=== PATIENT | female | born 1960 | race Caucasian/White ===

== ENCOUNTER 2017-11-23 10:01 | Emergency (ER) | payer MEDICAID ==
[~2017-11-23] VITALS: Ht 157.5 cm; Wt 133.8 kg
[2017-11-23] MEDS ORDERED: PROMETHAZINE HCL 25 MG/ML 1ML ONE (10:14)
[2017-11-23] MEDS ORDERED: IOHEXOL 350 MG/ML 100ML IJ ONE (15:02)
[2017-11-23 16:12] VITALS: BP 136/65
== END 2017-11-23 16:08 | disposition home or self-care (01) ==
LOC: ER 10:01
DX: M79.89 Other specified soft tissue disorders (principal); F17.210 Nicotine dependence, cigarettes, uncomplicated; R06.02 Shortness of breath; Z88.1 Allergy status to other antibiotic agents; Z88.8 Allergy status to other drugs, medicaments and biological substances
CPT/HCPCS: 71275; 93971; 99284; J2550; Q9967

== ENCOUNTER 2018-01-22 10:55 | Emergency (ER) | payer MEDICAID ==
[~2018-01-22] VITALS: Ht 157.5 cm; Wt 131.5 kg
[2018-01-22 11:11] VITALS: BP 155/79
== END 2018-01-22 13:27 | disposition home or self-care (01) ==
LOC: ER 10:57
DX: H10.33 Unspecified acute conjunctivitis, bilateral (principal); F17.210 Nicotine dependence, cigarettes, uncomplicated; J44.9 Chronic obstructive pulmonary disease, unspecified; E78.5 Hyperlipidemia, unspecified; I10 Essential (primary) hypertension; Z90.49 Acquired absence of other specified parts of digestive tract; Z87.442 Personal history of urinary calculi

== ENCOUNTER 2019-05-15 22:30 | Emergency (ER) | payer MEDICAID ==
[~2019-05-15] VITALS: Ht 157.5 cm; Wt 158.8 kg
[2019-05-15] MEDS ORDERED: ALBUTEROL SULF 2.5 MG/0.5ML(0.5%) NEB SOLN NEB STA (22:42)
[2019-05-15] MEDS ORDERED: IPRATROPIUM BROM 0.5 MG/2.5ML INH SOL NEB ONE (22:45)
[2019-05-15 23:16] LABS: Basophils # (auto) 0 uL; Basophils % (auto) 0.3 % (0.0-2.0); Eosinophils # (auto) 0.3 uL; Eosinophils % (auto) 2.6 % (0.0-7.0); Hematocrit 30.2 % (36.0-46.0); Hemoglobin 8.6 g/dL (12.2-16.2); Lymphocytes # (auto) 2.2 uL; Lymphocytes % (auto) 20.1 % (10.0-50.0); Mean Corpuscular Hemoglobin 21.3 pg (28.0-32.0); Mean Corpuscular Hgb Conc. 28.5 g/dL (32.0-36.0); Mean Corpuscular Volume 74.5 fL (80.0-100.0); Monocytes # (auto) 0.9 uL; Neutrophils # (auto) 7.6 uL; Nucleated Red Blood Cells % 0.2 %; Platelet Count (auto) 410 10^3/uL (140-450); Red Blood Cells 4.05 10^6/uL (4.0-5.20); Red Cell Distribution Width 19.6 % (11.8-14.3)
[2019-05-15 23:31] LABS: INR < 0.93 (0.9-1.15); Partial Thromboplastin Time 23.2 sec (23.64-32.05)
[2019-05-15 23:37] LABS: Carbon Dioxide 37 mmol/L (21-32); Chloride 94 mmol/L (98-107); Potassium 3.5 mmol/L (3.5-5.1); Sodium 139 mmol/L (136-145)
[2019-05-15 23:38] LABS: Alanine Aminotransferase 29 U/L (13-56); Albumin 3.2 g/dL (3.4-5.0); Anion Gap 8 (5-15); Aspartate Aminotransferase 15 U/L (15-37); Blood Urea Nitrogen 18 mg/dL (7-18); Calcium 8.1 mg/dL (8.5-10.1); GFR African American 68 mL/min; GFR Non-African American 56 mL/min; Glucose 373 mg/dL (74-106)
[2019-05-15 23:42] LABS: Alkaline Phosphatase 86 U/L (45-117); Bilirubin, Total 0.3 mg/dL (0.2-1.0); Total Protein 7.3 g/dL (6.4-8.2)
[2019-05-16 05:23] VITALS: BP 141/83
[2019-05-16 05:55] LABS: Urine Bacteria FEW /hpf (None Seen); Urine Blood Negative /uL (Negative); Urine Budding Yeast OCCASIONAL /hpf (None Seen); Urine Hyaline Cast FEW /lpf (0 - 2); Urine Specific Gravity 1.024 (1.001-1.035); Urine WBC 2 /hpf (0 - 5)
== END 2019-05-16 06:00 | disposition home or self-care (01) ==
LOC: ER 22:30
DX: J96.11 Chronic respiratory failure with hypoxia (principal); J18.9 Pneumonia, unspecified organism; J20.9 Acute bronchitis, unspecified; J44.9 Chronic obstructive pulmonary disease, unspecified; E11.9 Type 2 diabetes mellitus without complications; E78.00 Pure hypercholesterolemia, unspecified; I10 Essential (primary) hypertension; Z87.442 Personal history of urinary calculi
CPT/HCPCS: 36415; 36600; 71045; 80053; 81001; 82805; 83880; 84484; 85025; 85610; 85730; 93005; 94640; 99284; J7611; J7644

== ENCOUNTER 2019-08-25 06:23 | Inpatient (IN) | payer MEDICAID ==
[~2019-08-25] VITALS: Ht 157.5 cm; Wt 152.5 kg
[~2019-08-25 06:23] MED LIST: ALBU108A5 IN; AMIO200T33 PO; CHOL200039 PO; CYAN1TAB14 PO; DULO60CA90 PO; ECON1CRE TOP; FER325T PO; FURO1TAB31 PO; HYD25RS PR; HYDR4CRE35 PR; INSLANTI SC; INSREG3 IV; LAMO200T34 PO; METF-371 PO; MIRT30TA OR; OMEP20TA PO; PANT40T PO; POTA10TA51 PO; ROPI0.5T16 PO; SERDISK IN; SIMV-8 PO; TEMA15CA5 PO
[2019-08-25 07:25] LABS: Basophils # (auto) 0.1 uL; Basophils % (auto) 0.6 % (0.0-2.0); Eosinophils # (auto) 0.2 uL; Hematocrit 28.7 % (36.0-46.0); Hemoglobin 8.2 g/dL (12.2-16.2); Neutrophils # (auto) 16.5 uL
[2019-08-25 07:27] LABS: Eosinophils % (auto) 0.9 % (0.0-7.0); Lymphocytes # (auto) 1.6 uL; Lymphocytes % (auto) 8.2 % (10.0-50.0); Mean Corpuscular Hemoglobin 22.4 pg (28.0-32.0); Mean Corpuscular Hgb Conc. 28.5 g/dL (32.0-36.0); Mean Corpuscular Volume 78.6 fL (80.0-100.0); Monocytes # (auto) 1.5 uL; Monocytes % (auto) 7.4 % (0.0-12.0); Neutrophils % (auto) 82.9 % (37.0-80.0); Nucleated Red Blood Cells % 0.3 %; Platelet Count (auto) 342 10^3/uL (140-450); Red Blood Cells 3.65 10^6/uL (4.0-5.20); White Blood Cell 19.9 10^3/uL (4.4-10.8)
[2019-08-25 07:32] LABS: Red Cell Distribution Width 22.7 % (11.8-14.3)
[2019-08-25 07:39] LABS: Alanine Aminotransferase 36 U/L (13-56); Albumin 3.1 g/dL (3.4-5.0); Anion Gap 7 (5-15); Aspartate Aminotransferase 15 U/L (15-37); Blood Urea Nitrogen 13 mg/dL (7-18); Calcium 8.2 mg/dL (8.5-10.1); Carbon Dioxide 37 mmol/L (21-32); Chloride 92 mmol/L (98-107); GFR African American 73 mL/min; GFR Non-African American 60 mL/min; Glucose 318 mg/dL (74-106); Potassium 4.4 mmol/L (3.5-5.1); Sodium 136 mmol/L (136-145)
[2019-08-25 07:44] LABS: Alkaline Phosphatase 79 U/L (45-117); Bilirubin, Total 0.4 mg/dL (0.2-1.0)
[2019-08-25] MEDS ORDERED: SODIUM CHLORIDE 0.9% 1,000 ML IV ONE (07:53)
[2019-08-25 08:52] LABS: Urine Bacteria NONE SEEN /hpf (None Seen); Urine Blood Negative /uL (Negative); Urine Mucus FEW (None Seen); Urine Specific Gravity 1.025 (1.001-1.035); Urine WBC 55 /hpf (0 - 5)
[2019-08-25] MEDS ORDERED: cefTRIAXone 1GM/50ML D5W 50 ML IV ONE ×2 (10:15→13:15)
[2019-08-25] MEDS ORDERED: SPIRONOLACTONE 25 MG TAB PO ONE (10:15)
[2019-08-25] MEDS ORDERED: FUROSEMIDE 40 MG/4 ML VIAL IV ONE (10:15)
[2019-08-25] MEDS ORDERED: ONDANSETRON HCL 4 MG/2 ML VIAL IV PRN (12:45)
[2019-08-25] MEDS ORDERED: ACETAMINOPHEN 500 MG TAB PO PRN (12:45)
[2019-08-25] MEDS ORDERED: NITROGLYCERIN 0.4 MG SL TAB SL PRN (12:45)
[2019-08-25] MEDS ORDERED: MORPHINE SULF INJ 2 MG/ML SYRINGE 1ML IV PRN (12:45)
[2019-08-25] MEDS ORDERED: AZITHROMYCIN 250 MG TAB PO ONE ×2 (12:45→13:15)
--- NOTE | 2019-08-25 13:10 | NUR ---
Telemetry admit from ER FRANSISCO WILSON admitted to Telemetry unit after SBAR received. Patient oriented to Ketty Aragon, primary RN, unit, room, bed, and unit policies regarding patient care and visiting hours. Patient now on continuous telemetry monitoring, tele box #[id number] and telemetry reading on arrival to unit is . Patient placed on bedside oxygen, weighed by bedscale and encouraged to call if they need something. All questions and concerns addressed, patient verbalized understanding. Note:
[2019-08-25] MEDS: MORPHINE SULF INJ 2 MG/ML SYRINGE 1ML IV PRN (13:15)
[2019-08-25] MEDS ORDERED: DILTIAZEM HCL 120MG ER CAP PO ONE (13:15)
[2019-08-25] MEDS ORDERED: DULoxetine HCL 30 MG CAP PO ONE (13:15)
[2019-08-25] MEDS ORDERED: FERROUS SULFATE 325 MG TAB PO ONE (13:15)
[2019-08-25] MEDS ORDERED: MIRTAZAPINE 30 MG TAB PO ONE (13:15)
[2019-08-25] MEDS ORDERED: PANTOPRAZOLE 40 MG TAB PO ONE (13:15)
[2019-08-25] MEDS ORDERED: AMIODARONE HCL 200 MG TAB PO ONE (13:15)
[2019-08-25] MEDS ORDERED: DEXTROSE (50%) 50ML SYRG IV PRN (13:15)
[2019-08-25] MEDS: lamoTRIgine 100 MG TAB PO SCH (13:35)
[2019-08-25 15:34] VITALS: BP 130/48
[2019-08-25] MEDS: IPRATROPIUM BROM 0.5 MG/2.5ML INH SOL NEB SCH ×3 (15:40→23:03)
[2019-08-25] MEDS: LEVALBUTEROL HCL 1.25 MG/3 ML NEB NEB SCH ×3 (15:40→23:03)
[2019-08-25 17:00] VITALS: BP 143/63
--- NOTE | 2019-08-25 18:00 | NUR ---
MONTEJO BAG REPLACED.
[2019-08-25] MEDS: FUROSEMIDE 20 MG/2 ML VIAL IV SCH (18:07)
[2019-08-25] MEDS: InsuLIN REG 1unit/0.01ml Soln (100units/ml) SC SCH ×3 (18:07→23:41)
[2019-08-25] MEDS: ACCU-CHEK COMFORT CURVE STRIP VI SCH ×3 (18:07→23:41)
[2019-08-25] MEDS: BUDESONIDE (INHALATION) 0.5 MG/2 ML NEB NEB SCH (19:01)
--- NOTE | 2019-08-25 19:24 | NUR ---
Opening Shift Note Assumed care of patient, awake and alert x 4. No S/S of distress/SOB. Patient is on 10l/min Oxymizer at this time. O2 saturation is 92% at this time. Bed is in lowest position and locked. Call light within reach. Board updated. Tele box number matches monitor and leads are in correct placement. Gibbons catheter secured to thigh and collection bag is hanging below bladder. Instructed on POC and to call for assist PRN, will continue to monitor for changes Q1hr and PRN.
[2019-08-25 22:00] VITALS: BP 120/58
[2019-08-25] MEDS: TEMAZEPAM 15 MG CAP PO SCH (22:00)
--- NOTE | 2019-08-25 22:35 | NUR ---
RT NOTE: PAGED TO PT ROOM, FOUND PT WITH BIPAP MASK RIPPED OFF AND PT AGITATED AND CONFUSED. PT NOT WANTING TO WEAR BIPAP OR OXYGEN. PT CALMED DOWN AND LET ME GIVE BREATHING TX AND PLACE BACK ON 10LPM OXYMIZER, SPO2 92%. PT STILL CONFUSED AND RN NOTIFIED.
--- NOTE | 2019-08-25 23:01 | NUR ---
Patient found to be extremely agitated and combative. Patient had her purse next to her but denied that she had taken any drugs or medications. No pills noticed in her purse at glance. Her BiPAP was laying on the bed and her O2 sat was 76%. Attempted to place BiPAP back on but patient began screaming that I was trying to kill her. RT paged. Charge Nurse paged. Multiple nurses required to place Oxymizer on patient at 10 l/min. O2 sat christ to 86%. Patient was rambling that I was trying to kill her and that the "cartel" had sent me to kill her. I left her eyesight and stayed outside of door while RT and charge nurse attempted to calm patient down. RT gave breathing treatment and patient calmed down slightly but is still paranoid.
[2019-08-25] MEDS: AMIODARONE HCL 200 MG TAB PO SCH (23:33)
[2019-08-25] MEDS: PANTOPRAZOLE 40 MG TAB PO SCH (23:33)
[2019-08-25] MEDS: FERROUS SULFATE 325 MG TAB PO SCH (23:33)
[2019-08-25] MEDS: ROPINIROLE HYDROCHLORIDE 3 MG PO SCH (23:33)
--- NOTE | 2019-08-25 23:54 | NUR ---
Care endorsed to MAYANK Harvey. Patient is resting in bed and appears to be more calm at this time. Patient's oxygen is 94% on 10 l/min Oxymizer.
--- NOTE | 2019-08-26 | NUR ---
Assumed care of patient. No S/S of distress/SOB 02 94%, patient denies pain. Discussed plan of care with patient, patient verbalized understanding. Instructed patient to call for assist PRN, will continue to monitor for changes Q1hr and PRN.
[2019-08-26] MEDS: TEMAZEPAM 15 MG CAP PO SCH (00:43)
[2019-08-26] MEDS ORDERED: LORazepam 2MG/ML-1ML VIAL IV PRN (03:45)
[2019-08-26] MEDS: ACCU-CHEK COMFORT CURVE STRIP VI SCH ×5 (04:45→23:17)
[2019-08-26] MEDS: InsuLIN REG 1unit/0.01ml Soln (100units/ml) SC SCH ×5 (04:50→23:17)
[2019-08-26 06:00] VITALS: BP 128/85
[2019-08-26] MEDS: FUROSEMIDE 20 MG/2 ML VIAL IV SCH (06:00)
[2019-08-26] MEDS: ROPINIROLE HYDROCHLORIDE 3 MG PO SCH ×2 (06:00→13:43)
[2019-08-26 06:37] LABS: Basophils # (auto) 0 uL; Eosinophils # (auto) 0.1 uL; Hemoglobin 7.5 g/dL (12.2-16.2)
[2019-08-26 06:40] LABS: Basophils % (auto) 0.2 % (0.0-2.0); Eosinophils % (auto) 0.7 % (0.0-7.0); Hematocrit 25.6 % (36.0-46.0); Lymphocytes # (auto) 1.9 uL; Lymphocytes % (auto) 11.7 % (10.0-50.0); Mean Corpuscular Hemoglobin 22.6 pg (28.0-32.0); Mean Corpuscular Hgb Conc. 29.2 g/dL (32.0-36.0); Mean Corpuscular Volume 77.3 fL (80.0-100.0); Monocytes # (auto) 1.6 uL; Monocytes % (auto) 9.8 % (0.0-12.0); Neutrophils # (auto) 12.3 uL; Neutrophils % (auto) 77.6 % (37.0-80.0); Nucleated Red Blood Cells % 0.7 %; Platelet Count (auto) 330 10^3/uL (140-450); Red Blood Cells 3.31 10^6/uL (4.0-5.20); White Blood Cell 15.8 10^3/uL (4.4-10.8)
[2019-08-26 06:49] LABS: Red Cell Distribution Width 22.4 % (11.8-14.3)
[2019-08-26 06:57] LABS: Calcium 8.6 mg/dL (8.5-10.1); Potassium 4.7 mmol/L (3.5-5.1)
[2019-08-26 06:59] LABS: BUN/Creatinine Ratio 14.3
--- NOTE | 2019-08-26 07:00 | NUR ---
Opening Shift Note Assumed care of patient, awake and alert. No S/S of distress/SOB or pain. Instructed on POC and to call for assist PRN, will continue to monitor for changes Q1hr and PRN.
--- NOTE | 2019-08-26 07:19 | NUR ---
Ev from chemistry called with critical CO2 43%. Hospitalist paged. Endorsed care to daytime RN Ketty.
[2019-08-26] MEDS: IPRATROPIUM BROM 0.5 MG/2.5ML INH SOL NEB SCH ×5 (07:49→22:03)
[2019-08-26] MEDS: LEVALBUTEROL HCL 1.25 MG/3 ML NEB NEB SCH ×2 (07:49→10:42)
[2019-08-26] MEDS: BUDESONIDE (INHALATION) 0.5 MG/2 ML NEB NEB SCH ×2 (07:49→18:25)
[2019-08-26] MEDS: cefTRIAXone 1GM/50ML D5W 50 ML IV SCH (08:32)
[2019-08-26] MEDS: MORPHINE SULF INJ 2 MG/ML SYRINGE 1ML IV PRN ×2 (08:34→18:02)
[2019-08-26] MEDS: lamoTRIgine 100 MG TAB PO SCH (09:40)
[2019-08-26] MEDS: MIRTAZAPINE 30 MG TAB PO SCH (09:41)
[2019-08-26] MEDS: PANTOPRAZOLE 40 MG TAB PO SCH ×2 (09:41→22:44)
[2019-08-26] MEDS: DULoxetine HCL 30 MG CAP PO SCH ×2 (09:41→22:44)
[2019-08-26] MEDS: HYDROcodone-ACET 5/325MG TAB PO PRN ×2 (09:41→16:16)
[2019-08-26] MEDS: FERROUS SULFATE 325 MG TAB PO SCH ×2 (09:41→22:44)
[2019-08-26] MEDS: AMIODARONE HCL 200 MG TAB PO SCH ×2 (09:42→22:45)
[2019-08-26] MEDS ORDERED: DILTIAZEM HCL 120MG ER CAP PO SCH (10:00)
[2019-08-26] MEDS ORDERED: AZITHROMYCIN 250 MG TAB PO SCH (10:00)
--- NOTE | 2019-08-26 10:50 | NUR ---
PAGED RT PATIENT SATURATION AT 89% TO 90 % ON 6 L OXYMIZER
[2019-08-26 11:31] VITALS: BP 138/99
--- NOTE | 2019-08-26 11:34 | NUR ---
PATIENT SATURATION AT 92 AFTER BREATHING TREATMENT
[2019-08-26 13:00] VITALS: BP 136/84
--- NOTE | 2019-08-26 13:26 | NUR ---
DISCUSSION ABOUT INTUBATION DR. BAUER AT BEDSIDE WITH PATIENT AND PATIENTS SON CONCHA AT BEDSIDE. AFTER DR. BAUER TALKED TO PATIENT ABOUT HER CURRENT CONDITION. PATIENT STATED THAT SHE WANTS TO BE INTUBATED IF NEEDED BUT FOR NO LONGER THAN A WEEK AND THAT HER WISHES ARE NOT TO HAVE A TRACHEOSTOMY
[2019-08-26] MEDS ORDERED: DILTIAZEM HCL 25 MG/5 ML VIAL IV ONE (14:00)
[2019-08-26] MEDS ORDERED: DEXTROSE (50%) 50ML SYRG IV PRN (14:00)
[2019-08-26] MEDS: ROPINIROLE 3 MG PO SCH ×2 (14:00→22:51)
[2019-08-26 16:34] VITALS: BP 132/80
--- NOTE | 2019-08-26 18:05 | NUR ---
G CRITICAL CALLED AND SPOKE WITH DANIELLE BASS ORDERS RECEIVED AND READ BACK AND VERIFIED.
[2019-08-26] MEDS ORDERED: ACETAMINOPHEN 500 MG TAB PO PRN (18:15)
--- NOTE | 2019-08-26 19:25 | NUR ---
OPENING NOTE- NOC SHIFT PATIENT IS ALERT AND ORIENTED X4. PATIENT IS WEARING BIPAP SAT O2 IS 89% AT THIS TIME. SON AT BEDSIDE. NURSE DIRECTOR BIOSTATISTICS AT BEDSIDE FOR SAFETY PRECAUTIONS. DISCUSSED POC WITH PATIENT AND INSTRUCTED PATIENT TO CALL PRN.
[2019-08-26 20:00] VITALS: BP 132/80
[2019-08-26] MEDS: acetaZOLAMIDE SODIUM 500 MG VL IV SCH (22:46)
[2019-08-27] VITALS (10 sets, daily range): BP systolic 111–138; BP diastolic 46–73
--- NOTE | 2019-08-27 00:36 | NUR ---
GRACIELA PAGEDuarte HOSPITALIST PATIENT PRESENTING WITH A FLUTTER. PER REPORT PATIENT HAD AN EPISODE AT AROUND 1330 ON 08/26; CARDIZEM 40MG IV WAS ORDERED FOR HER BUT NOT GIVEN BECAUSE SHE CONVERT BACK TO SR. SHE HAD A SCHEDULED CARDIZEM ER 120MG CAPSULE AT 0943 08/26. HR 120-135. PATIENT IS ON BIPAP.
--- NOTE | 2019-08-27 00:41 | NUR ---
12 LEAD EKG COMPLETE PRESENTING WITH AFLUTTER
[2019-08-27] MEDS ORDERED: PATIENTS OWN MEDICATION PO SCH ×2 (00:45→10:00)
--- NOTE | 2019-08-27 00:45 | NUR ---
DR COLBERT AT BEDSIDE; DR COLBERT AWARE OF PATIENT CURRENTLY PRESENTING WITH AFLUTTER AND ELEVATED HR 132. WILL CARRY OUT ORDERS RECEIVED.
--- NOTE | 2019-08-27 00:55 | NUR ---
DR COLBERT AWARE OF LATEST 12 LEAD EKG RESULTS.
[2019-08-27] MEDS ORDERED: RIVAROXABAN 20 MG TAB PO ONE (01:15)
[2019-08-27] MEDS: ACETAMINOPHEN 500 MG TAB PO PRN (01:32)
[2019-08-27] MEDS: ROPINIROLE 3 MG PO SCH ×3 (06:02→22:13)
[2019-08-27] MEDS: InsuLIN REG 1unit/0.01ml Soln (100units/ml) SC SCH ×4 (06:09→22:10)
[2019-08-27] MEDS: ACCU-CHEK COMFORT CURVE STRIP VI SCH ×4 (06:09→22:10)
[2019-08-27] MEDS: BUDESONIDE (INHALATION) 0.5 MG/2 ML NEB NEB SCH ×2 (06:10→19:08)
[2019-08-27] MEDS: IPRATROPIUM BROM 0.5 MG/2.5ML INH SOL NEB SCH ×5 (06:10→21:56)
--- NOTE | 2019-08-27 07:40 | NUR ---
ENDORSED PATIENT CARE TO DAY SHIFT NURSE KANA TALLEY. NURSE WIND OPERATIONS SUPERVISOR AT BEDSIDE FOR SAFETY PRECAUTIONS. PATIENT ON BIPAP, RT AT BEDSIDE AT THIS TIME. NO S/SX OF DISTRESS OR PAIN.
[2019-08-27] MEDS: cefTRIAXone 1GM/50ML D5W 50 ML IV SCH (09:14)
[2019-08-27 09:42] LABS: Hemoglobin 7.9 g/dL (12.2-16.2); Lymphocytes # (auto) 1.6 uL; Mean Corpuscular Hemoglobin 22.3 pg (28.0-32.0); Monocytes # (auto) 1.3 uL; Red Blood Cells 3.56 10^6/uL (4.0-5.20)
[2019-08-27 09:43] LABS: Basophils # (auto) 0 uL; Basophils % (auto) 0.4 % (0.0-2.0); Eosinophils # (auto) 0.3 uL; Hematocrit 27.3 % (36.0-46.0); Mean Corpuscular Volume 76.7 fL (80.0-100.0); Monocytes % (auto) 9.5 % (0.0-12.0); Neutrophils # (auto) 10.4 uL; Neutrophils % (auto) 76.1 % (37.0-80.0); Nucleated Red Blood Cells % 0.7 %; Platelet Count (auto) 363 10^3/uL (140-450); White Blood Cell 13.7 10^3/uL (4.4-10.8)
[2019-08-27 09:56] LABS: Red Cell Distribution Width 23.6 % (11.8-14.3)
[2019-08-27 10:00] LABS: BUN/Creatinine Ratio 16.9; Calcium 8.7 mg/dL (8.5-10.1); Potassium 3.8 mmol/L (3.5-5.1)
[2019-08-27] MEDS: AMIODARONE HCL 200 MG TAB PO SCH ×2 (10:13→22:09)
[2019-08-27] MEDS: MIRTAZAPINE 30 MG TAB PO SCH (10:14)
[2019-08-27] MEDS: lamoTRIgine 100 MG TAB PO SCH (10:14)
[2019-08-27] MEDS: DULoxetine HCL 30 MG CAP PO SCH ×2 (10:14→22:10)
[2019-08-27] MEDS: FERROUS SULFATE 325 MG TAB PO SCH ×2 (10:14→22:09)
[2019-08-27] MEDS: PANTOPRAZOLE 40 MG TAB PO SCH ×2 (10:14→22:10)
[2019-08-27] MEDS: DILTIAZEM HCL 120MG ER CAP PO SCH (10:16)
--- NOTE | 2019-08-27 10:26 | NUR ---
PER PHARMACY DIAMOX ON ORDER. TO BE DELIVERED UPON ARRIVAL.
[2019-08-27] MEDS: methylPREDNISolone SOD SUCC 40 MG/ML VL IV SCH ×3 (10:41→22:11)
--- NOTE | 2019-08-27 10:50 | NUR ---
PT TRANSFERRED TO [facility]. PT TOLERATED TRANSPORT WELL. REPORT GIVEN TO MAYANK PONCE. ALL QUESTIONS AND CONCERNS ADDRESSED.
--- NOTE | 2019-08-27 11:00 | NUR ---
RT Transport Note: Patient transported to [facility] with MAYANK Cleary and Phuc Bravo. Patient transported on simple mask connected to O2 tank. After arrival in [facility], placed pt back on BIPAP on previously ordered settings, alarms set and audible to nurse's station. Pt tolerating BIPAP well, HR 89, RR 28, SPO2 95%. MAYANK Gonzalez at bedside. Transport completed without incident.
--- NOTE | 2019-08-27 11:00 | NUR ---
TELE PT TRANSFER TO [facility] Report received from leslie Jacob. FRANSISCO WILSON transferred to [facility] via rcollege corner on quality assurance monitor chassis and portable 02. All patient medications and personal belongings transferred. with patient. Patient son and daughter at bedside. Patient connected to bedside monitor and Bipap machine. Oxygen saturation 93%, denies shortness of breath or chest pain. Physical assessment complete. Bed locked in lowest position, call light within reach. Patient instructed to call for assistance, patient verbalized understanding.
--- NOTE | 2019-08-27 11:10 | NUR ---
CODE STATUS at bedside speaking with patient regarding code status.
[2019-08-27] MEDS: LEVALBUTEROL HCL 1.25 MG/3 ML NEB NEB SCH ×4 (11:19→21:56)
--- NOTE | 2019-08-27 11:21 | NUR ---
MD UPDATE called to confirm patient location. MD ordered stat ABG, to be notified with results. RT notified.
[2019-08-27] MEDS: acetaZOLAMIDE SODIUM 500 MG VL IV SCH ×2 (11:33→22:11)
--- NOTE | 2019-08-27 11:37 | NUR ---
PT REMAINS ON BIPAP. ABG DRAWN PER DR AU'S ORDERS. RESULTS TO FOLLOW
--- NOTE | 2019-08-27 11:40 | NUR ---
CALLED DR AU TO REPORT ABG RESULTS, LEFT MESSAGE, AWAITING CALL BACK
--- NOTE | 2019-08-27 11:45 | NUR ---
ABG RT Ivone called and notified him of ABG results. Orders obtained to place patient on High Flow oxygen.
--- NOTE | 2019-08-27 11:55 | NUR ---
DR AU CALLED BACK, REPORTED ABG RESULTS TO . NEW ORDERS RECEIVED TO PLACE PT ON HIGH FLOW. ABG ONE HOUR AFTER INITIATING. WILL CARRY OUT
--- NOTE | 2019-08-27 13:05 | NUR ---
TOOK PT OFF BIPAP AND PLACED ON HIGH FLOW NASAL CANNULA PER DR AU'S ORDERS. HFNC UNIT PLUGGED INTO RED OUTLET AND PROPER O2/AIR SOURCES, PT FITTED WITH SIZE MEDIUM CANNULA. HEATER SET TO 34C. BREATH SOUNDS DIMINISHED THROUGHOUT. PT TOLERATING WELL, SPO2 MAINTAINING AT 92%. PT LAYING COMFORTABLY IN BED, AWAKE, ALERT, FOLLOWING COMMANDS AND ANSWERING QUESTIONS, VISITING WITH FAMILY MEMBERS AT BEDSIDE. ABG TO FOLLOW IN ONE HOUR. NOTIFIED MAYANK PONCE OF CHANGES.
--- NOTE | 2019-08-27 13:12 | NUR ---
OXYGENATION Patient placed on high flow nasal cannula by RT per request. Patient tolerated well at this time. Oxygen saturation 93%. Will continue to monitor. RT to draw ABG in 1 hour.
[2019-08-27] MEDS ORDERED: methylPREDNISolone SOD SUCC 40 MG/ML VL IV SCH (14:00)
--- NOTE | 2019-08-27 14:30 | NUR ---
PT REMAINS ON HIGH FLOW NC, TOLERATING WELL. ABG DRAWN, RESULTS TO FOLLOW
--- NOTE | 2019-08-27 14:40 | NUR ---
CALLED DR AU WITH ABG RESULTS. ACKNOWLEDGED RESULTS, NO NEW ORDERS RECEIVED. PT TO REMAIN ON HIGH FLOW. NOTIFIED MAYANK PONCE
[2019-08-27] MEDS: RIVAROXABAN 20 MG TAB PO SCH (18:01)
--- NOTE | 2019-08-27 19:16 | NUR ---
REPORT Report given to Heather TALLEY, care endorsed.
--- NOTE | 2019-08-27 20:00 | NUR ---
OPENING SHIFT NOTE PATIENT AWAKE ALERT AND ORIENTED, RESTING IN BED ON HIGH FLOW NC 55L 50%FIO2. NO SIGNS OF DISTRESS OR SOB NOTED, ALL VSS: SEE IV SPREADSHEET. COMPLETE PHYSICAL ASSESSMENT DONE: SEE INTERVENTIONS. INSTRUCTED ON POC AND TO CALL FOR ASSIST PRN, PATIENT VERBALIZES UNDERSTANDING.
--- NOTE | 2019-08-27 20:15 | NUR ---
AT BEDSIDE UPDATED ON PATIENT STATUS AND NEW VERBAL ORDERS READ BACK AND VERIFIED, WILL FOLLOW THROUGH
[2019-08-27] MEDS: TEMAZEPAM 15 MG CAP PO SCH (22:10)
[2019-08-28] VITALS (13 sets, daily range): BP systolic 118–151; BP diastolic 48–75
[2019-08-28] MEDS: LEVALBUTEROL HCL 1.25 MG/3 ML NEB NEB SCH ×6 (02:23→22:27)
[2019-08-28] MEDS: IPRATROPIUM BROM 0.5 MG/2.5ML INH SOL NEB SCH ×6 (02:24→22:26)
[2019-08-28] MEDS: methylPREDNISolone SOD SUCC 40 MG/ML VL IV SCH ×4 (03:45→22:04)
--- NOTE | 2019-08-28 05:19 | NUR ---
AM BATH/LINEN CHANGE COMPLETE BED BATH PROVIDED USING WARM WASH CLOTHS. SKIN REASSESSED AT THIS TIME FOR ANY CHANGES: NO NEW CHANGES NOTED, SKIN CONTINUES TO BE INTACT. MONTEJO CARE PROVIDED . PILLOW CASES PLACED UNDER ABD AND BREAST FOLD TO KEEP AREA DRY. PARTIAL LINEN CHANGE DONE AND NEW GOWN PLACED ON PATIENT. REPOSITIONED IN BED FOR COMFORT. CALL LIGHT GIVEN TO PATIENT AND CONTINUE MONITORING.
[2019-08-28] MEDS: BUDESONIDE (INHALATION) 0.5 MG/2 ML NEB NEB SCH ×2 (06:28→19:17)
[2019-08-28] MEDS: ROPINIROLE 3 MG PO SCH ×3 (06:38→22:04)
[2019-08-28] MEDS: ACCU-CHEK COMFORT CURVE STRIP VI SCH ×4 (06:38→23:31)
[2019-08-28] MEDS: InsuLIN REG 1unit/0.01ml Soln (100units/ml) SC SCH ×4 (06:44→23:31)
--- NOTE | 2019-08-28 06:58 | NUR ---
END OF SHIFT NOTE PATIENT IS AWAKE AND ALERT, ON BIPAP, SPO2 100%, RR 25. PATIENT REMAINED STABLE THROUGHOUT THE NIGHT WITH NO MAJOR EVENTS. WILL CONTINUE MONITORING AND ENDORSE CARE TO DAY SHIFT RN.
--- NOTE | 2019-08-28 07:30 | NUR ---
RECEIVED PATIENT SITTING UP IN THE BED, A/O TIMES ,4, O2 BY THE BIPAP 20/5 40%, MONTEJO TO GRAVITY, SALINE LOCK TO THE LEFT CHEST 22G FLUSHED AND PATENT DENIES PAIN
--- NOTE | 2019-08-28 08:30 | NUR ---
PLACED ON THE HIGH FLOW 55L AND 50% SO THE PATIENT CAN EAT HER BREAKFAST
[2019-08-28] MEDS: cefTRIAXone 1GM/50ML D5W 50 ML IV SCH (08:40)
--- NOTE | 2019-08-28 09:11 | NUR ---
SITTING UP IN THE BED TALKING TO HER SON
--- NOTE | 2019-08-28 09:45 | NUR ---
DR BAUER IN TO SEE THE PATIENT AND ORDERED LABS FOR TODAY
[2019-08-28] MEDS: acetaZOLAMIDE SODIUM 500 MG VL IV SCH ×2 (09:54→22:04)
[2019-08-28] MEDS: FERROUS SULFATE 325 MG TAB PO SCH ×2 (09:55→22:04)
--- NOTE | 2019-08-28 09:55 | NUR ---
EXPLAIN MEDIATIONS TO THE PATIENT REGARDING THE DOSAGE, USAGE AND THE SIDE EFFECTS, VERBALIZED SHE UNDERSTOOD AND MEDS GIVEN ORDERED
[2019-08-28] MEDS: PANTOPRAZOLE 40 MG TAB PO SCH ×2 (09:56→22:05)
[2019-08-28] MEDS: AMIODARONE HCL 200 MG TAB PO SCH ×2 (09:56→22:05)
[2019-08-28] MEDS: DILTIAZEM HCL 120MG ER CAP PO SCH (09:57)
[2019-08-28] MEDS: DULoxetine HCL 30 MG CAP PO SCH ×2 (10:06→22:05)
[2019-08-28] MEDS: MIRTAZAPINE 30 MG TAB PO SCH (10:07)
[2019-08-28] MEDS: lamoTRIgine 100 MG TAB PO SCH (10:08)
[2019-08-28 10:34] LABS: Basophils # (auto) 0 uL; Eosinophils # (auto) 0 uL
[2019-08-28 10:36] LABS: Basophils % (auto) 0.4 % (0.0-2.0); Hematocrit 27.7 % (36.0-46.0); Hemoglobin 7.9 g/dL (12.2-16.2); Lymphocytes # (auto) 0.8 uL; Lymphocytes % (auto) 6.4 % (10.0-50.0); Mean Corpuscular Hemoglobin 22.5 pg (28.0-32.0); Mean Corpuscular Hgb Conc. 28.5 g/dL (32.0-36.0); Mean Corpuscular Volume 78.8 fL (80.0-100.0); Monocytes # (auto) 0.3 uL; Monocytes % (auto) 2.6 % (0.0-12.0); Neutrophils % (auto) 90.6 % (37.0-80.0); Nucleated Red Blood Cells % 0.6 %; Platelet Count (auto) 408 10^3/uL (140-450); Red Blood Cells 3.52 10^6/uL (4.0-5.20); White Blood Cell 12.2 10^3/uL (4.4-10.8)
[2019-08-28 10:37] LABS: Red Cell Distribution Width 24.5 % (11.8-14.3)
[2019-08-28 10:41] LABS: BUN/Creatinine Ratio 19.4; Calcium 8.9 mg/dL (8.5-10.1); Potassium 3.5 mmol/L (3.5-5.1)
--- NOTE | 2019-08-28 11:00 | NUR ---
WATCHING TV WITH HER SON AT THE BEDSIDE
[2019-08-28] MEDS ORDERED: DEXTROSE (50%) 50ML SYRG IV PRN (11:15)
[2019-08-28] MEDS ORDERED: INSULIN LANTUS (GLARGINE) 1 /0.01ml (100units/ml) SC ONE (11:15)
--- NOTE | 2019-08-28 11:46 | NUR ---
Nutrition Assessment Notes Please refer to link for full assessment notes Est energy needs: [id number] kcals (12-15 kcals/kgBW) Est protein needs: 61-76 gms/day (0.8-1.0 gms/kgAdjBW) Will continue to monitor and reassess prn Addendum: 08/28/19 at [address] Amended: Links added.
--- NOTE | 2019-08-28 12:00 | NUR ---
CHANGE THE O2 TO HIGH FLOW AT 40L AND 40%
--- NOTE | 2019-08-28 12:30 | NUR ---
SITTING UP IN THE BED EATING HER LUNCH NO HELP NEEDED, FAMILY WITH THE PATIENT
--- NOTE | 2019-08-28 13:30 | NUR ---
NO COMPLAINTS FAMILY WITH THE PATIENT
--- NOTE | 2019-08-28 14:56 | NUR ---
NO CHANGE IN CONDITION, O2 STILL BY THE HIGH FLOW
--- NOTE | 2019-08-28 15:43 | NUR ---
FAMILY LEFT AND WENT HOME, PATIENT SITTING UP IN BED WITH EYES CLOSED
--- NOTE | 2019-08-28 16:02 | NUR ---
EYES CLOSED APPEARS TO BE SLEEPING
--- NOTE | 2019-08-28 16:50 | NUR ---
SPUTUM COLLECTED AND SENT TO THE LAB
--- NOTE | 2019-08-28 17:04 | NUR ---
SITTING UP IN BED WITH EYES CLOSED BUT OPENS WHEN YOU CALL HER NAME
--- NOTE | 2019-08-28 17:27 | NUR ---
DR AU IN TO SEE THE PATIENT
[2019-08-28] MEDS: RIVAROXABAN 20 MG TAB PO SCH (17:44)
--- NOTE | 2019-08-28 18:17 | NUR ---
SITTING UP IN THE BED TALKING ON TH PHONE, O2 BY THE HIGH FLOW AT 40L AND 40%, A/O TIMES 4, MONTEJO TO GRAVITY, DENIES PAIN, SALINE LOCK TO THE LEFT BREAST FLUSHED AND PATENT, NO COMPLAINTS OF PAIN, WILL CONTINUE TO MONITOR AND GIVE REPORT TO THE NEXT SHIFT
--- NOTE | 2019-08-28 19:10 | NUR ---
OPENING SHIFT RECEIVED REPORT FROM DAY SHIFT RN. ASSUMED CARE OF PATIENT. PATIENT IN BED WITH NON SIGNS OR SYMPTOMS OF SOB, PAIN OR DISTRESS. CURRENTLY ON HIGH FLOW 40L 40%FI02, 02 SAT - 95%. LEFT CHEST IV - CLEAN/DRY/INTACT. MONTEJO HUNG TO GRAVITY ON BED RAIL. UPDATED PATIENT ON PLAN OF CARE. REPOSITIONED FOR COMFORT. BED IN LOWEST POSITION, SIDE RAILS X2, CALL LIGHT WITHIN REACH. WILL CONTINUE TO MONITOR.
--- NOTE | 2019-08-28 19:24 | NUR ---
RT NOTE PT WAS SEEN BY RT FOR HF CHECK AND HHN TX. PT TOLERATES HHN WELL VIA MASK. WATER LEVEL IS ADEQUATE. NO ADVERSE REACTION NOTED. PT STATES SHE WOULD LIKE TO GO ON BIPAP [employer] AT 2230. PT AWARE SHE CAN HAVE RT CALLED IF SHE WANTS TO GO ON SOONER. CONT ORDERED POX 95% Addendum: 08/28/19 at 1924 by Kasey Byrd RT Amended: Links added.
[2019-08-28] MEDS: TEMAZEPAM 15 MG CAP PO SCH (22:05)
--- NOTE | 2019-08-28 22:25 | NUR ---
RT NOTE PT PLACED ON RENTAL BIPAP ON STATED SETTINGS WITH MEDIUM MASK. BIPAP IS PLUGGED TO RED OUTLET. ALARMS ARE ON AND AUDIBLE TO NURSING. LEAK TEST DONE AND PASSED. MASK ADJUSTED FOR PT COMFORT. BILATERAL BS ARE CLEAR/DIM. HHN GIVEN INLINE WITH 0.63 MG XOPENEX AND 0.5 MG ATROVENT WITHOUT ADVERSE REACTION NOTED. SKIN IS INTACT AND WITHOUT BREAKDOWN/REDNESS NOTED. PT APPEARS COMFORTABLE AND SEEMS TO TOLERATE WELL AT THIS TIME. CONT ORDERED. POX 97% Addendum: 08/28/19 at 2233 by Kasey Byrd RT Amended: Links added.
[2019-08-29] VITALS (13 sets, daily range): BP systolic 104–136; BP diastolic 48–76
--- NOTE | 2019-08-29 00:51 | NUR ---
RT NOTE ROUTINE BIPAP CHECK DONE. PT IS ON RENTAL BIPAP ON STATED SETTINGS WITH MEDIUM MASK. BIPAP IS PLUGGED TO RED OUTLET. ALARMS ARE ON AND AUDIBLE TO NURSING. PT IS SLEEPING AND APPEARS COMFORTABLE AND SEEMS TO TOLERATE WELL AT THIS TIME. CONT ORDERED. POX 96% Addendum: 08/29/19 at 0115 by Kasey Byrd RT Amended: Links added.
[2019-08-29] MEDS: LEVALBUTEROL HCL 1.25 MG/3 ML NEB NEB SCH ×6 (02:10→22:46)
[2019-08-29] MEDS: IPRATROPIUM BROM 0.5 MG/2.5ML INH SOL NEB SCH ×6 (02:10→22:46)
--- NOTE | 2019-08-29 02:12 | NUR ---
RT NOTE ROUTINE BIPAP CHECK DONE. PT IS ON RENTAL BIPAP ON STATED SETTINGS WITH MEDIUM MASK. BIPAP IS PLUGGED TO RED OUTLET. ALARMS ARE ON AND AUDIBLE TO NURSING. PT IS SLEEPING AND APPEARS COMFORTABLE AND SEEMS TO TOLERATE WELL AT THIS TIME. HHN GIVEN INLINE WITH 0.63 MG XOPENEX AND 0.5 MG ATROVENT WITHOUT ADVERSE REACTION NOTED. CONT ORDERED. POX 97% Addendum: 08/29/19 at 0220 by Kasey Byrd RT Amended: Links added.
--- NOTE | 2019-08-29 04:06 | NUR ---
RT NOTE ROUTINE BIPAP CHECK DONE. PT IS ON RENTAL BIPAP ON STATED SETTINGS WITH MEDIUM MASK. BIPAP IS PLUGGED TO RED OUTLET. ALARMS ARE ON AND AUDIBLE TO NURSING. PT IS SLEEPING AND APPEARS COMFORTABLE AND SEEMS TO TOLERATE WELL AT THIS TIME.MASK ADJUSTED FOR PT COMFORT AND LESS LEAK/BETTER VOLUME. CONT ORDERED. POX 96% Addendum: 08/29/19 at 0412 by Kasey Byrd RT Amended: Links added.
--- NOTE | 2019-08-29 05:30 | NUR ---
MORNING CARE PERFORMED MORNING CARE WITH CHG WIPES AND WASH CLOTHS TO THE FACE. PARTIAL LINEN CHANGE AND GOWN CHANGED. REPOSITIONED FOR COMFORT. SKIN REASSESSED AT THIS TIME. BED IN LOWEST POSITION, SIDE RAILS UP X2, CALL LIGHT WITHIN REACH. WILL CONTINUE TO MONITOR.
[2019-08-29] MEDS: methylPREDNISolone SOD SUCC 40 MG/ML VL IV SCH ×2 (06:06→14:39)
[2019-08-29] MEDS: InsuLIN REG 1unit/0.01ml Soln (100units/ml) SC SCH ×4 (06:07→21:27)
[2019-08-29] MEDS: ACCU-CHEK COMFORT CURVE STRIP VI SCH ×4 (06:07→21:27)
[2019-08-29] MEDS: ROPINIROLE 3 MG PO SCH ×3 (06:07→21:25)
[2019-08-29] MEDS: ACETAMINOPHEN 500 MG TAB PO PRN ×2 (06:08→18:39)
--- NOTE | 2019-08-29 07:10 | NUR ---
END OF SHIFT REPORT GIVEN TO DAY SHIFT RN. CARE ENDORSED.
[2019-08-29] MEDS: BUDESONIDE (INHALATION) 0.5 MG/2 ML NEB NEB SCH ×3 (07:15→22:46)
--- NOTE | 2019-08-29 07:30 | NUR ---
RECEIVED PATIENT SITTING UP IN THE BED, A/O TIMES 4, O2 BY THE BI PAP AND WILL BE CHANGED TO HIGH FLOW, MONTEJO TO GRAVITY, SALINE LOCK TO THE LEFT BREAST FLUSHED AND PATENT, DENIES PAIN
--- NOTE | 2019-08-29 08:20 | NUR ---
PLACED 20G SALINE LOCK TO THE RFA USING STERILE TECHNIQUE AND 1/1 ATTEMPTS
--- NOTE | 2019-08-29 08:35 | NUR ---
SAT UP IN BED AND ATE BREAKFAST NO HELP NEEDED
--- NOTE | 2019-08-29 09:28 | NUR ---
SITTING UP IN THE BED WATCHING TV
[2019-08-29] MEDS: cefTRIAXone 1GM/50ML D5W 50 ML IV SCH (10:21)
[2019-08-29] MEDS: acetaZOLAMIDE SODIUM 500 MG VL IV SCH (10:22)
[2019-08-29] MEDS: FERROUS SULFATE 325 MG TAB PO SCH ×2 (10:26→21:23)
--- NOTE | 2019-08-29 10:26 | NUR ---
discussed medications with the patient regarding the dosage, usage and the side effects,verbalized she understood and meds given as ordered
[2019-08-29] MEDS: DULoxetine HCL 30 MG CAP PO SCH ×2 (10:27→21:25)
[2019-08-29] MEDS: AMIODARONE HCL 200 MG TAB PO SCH ×2 (10:27→21:24)
[2019-08-29] MEDS: lamoTRIgine 100 MG TAB PO SCH (10:27)
[2019-08-29] MEDS: PANTOPRAZOLE 40 MG TAB PO SCH ×2 (10:28→21:24)
[2019-08-29] MEDS: MIRTAZAPINE 30 MG TAB PO SCH (10:28)
[2019-08-29] MEDS: DILTIAZEM HCL 120MG ER CAP PO SCH (10:39)
--- NOTE | 2019-08-29 10:40 | NUR ---
DR BAUER IN TO SEE THE PATIENT AND WROTE NEW ORDERS FOR THE BS
[2019-08-29] MEDS ORDERED: INSULIN LANTUS (GLARGINE) 1 /0.01ml (100units/ml) SC ONE (10:45)
--- NOTE | 2019-08-29 10:45 | NUR ---
changed to Oxymizer a 4l
--- NOTE | 2019-08-29 12:00 | NUR ---
LYING IN BED WITH EYES CLOSED
--- NOTE | 2019-08-29 13:06 | NUR ---
SITTING UP IN BED EATING HER LUNCH NO HELP NEEDED,FAMILY AT THE BEDSIDE
--- NOTE | 2019-08-29 14:16 | NUR ---
breathing treatment being given
[2019-08-29] MEDS ORDERED: FLUCONAZOLE 100 MG TAB PO ONE (15:15)
--- NOTE | 2019-08-29 15:15 | NUR ---
SITTING UP IN BED WORKING ON A PUZZLE
--- NOTE | 2019-08-29 16:30 | NUR ---
SITTING UP IN BED, NO SOB ON THE OXYMIZER AT 4L O2 SAT 93%
[2019-08-29] MEDS: RIVAROXABAN 20 MG TAB PO SCH (17:37)
[2019-08-29] MEDS: NYSTATIN (MOUTH-THROAT) 500,000 UNITS/5 ML SUSP MT SCH ×2 (17:38→21:23)
--- NOTE | 2019-08-29 18:12 | NUR ---
SITTING UP IN BED, A/O TIMES 4, O2 AT 4L BY THE OXYMIZER, GUSTABO TO GRAVITY, LEFT CHEST 22G INTACT AND PATENT, 20G TO THE RFA INTACT AND PATENT, NO COMPLAINTS OF PAIN AT THIS TIME, WILL CONTINUE TO MONITOR AND GIVE REPORT TO THE NEXT SHIFT
--- NOTE | 2019-08-29 18:42 | NUR ---
MEDIATED FOR H/A 03/09 WITH TYLENOL EATING HER DINNER,
--- NOTE | 2019-08-29 20:00 | NUR ---
SHIFT OPENING NOTE RECEIVED PATIENT AWAKE, ALERT AND ORIENTED X4. NO SOB, DISTRESS OR PAIN NOTED. ON 4L OXYMIZER 96%. MONTEJO CATH IN PLACE DRAINING YELLOW URINE TO GRAVITY. RIGHT FOREARM IV 20 G SALINE LOCKED. IV TO LEFT CHEST 22G SALINE LOCKED. PHYSICAL ASSESSMENT COMPLETED, SEE INTERVENTIONS. INSTRUCTED ON POC AND TO CALL FOR ASSIST NEEDED. BED IS IN THE LOWEST POSITION WITH SIDE RAILS UP X2, CALL LIGHT IS WITHIN REACH.
[2019-08-29] MEDS ORDERED: predniSONE 5 MG TAB ONE (21:16)
[2019-08-29] MEDS: TEMAZEPAM 15 MG CAP PO SCH (21:24)
[2019-08-29] MEDS: INSULIN LANTUS (GLARGINE) 1 /0.01ml (100units/ml) SC SCH (21:26)
[2019-08-29] MEDS ORDERED: acetaZOLAMIDE SODIUM 500 MG VL IV SCH (22:00)
[2019-08-29] MEDS ORDERED: methylPREDNISolone SOD SUCC 40 MG/ML VL IV SCH (22:00)
[2019-08-30] VITALS (8 sets, daily range): BP systolic 109–156; BP diastolic 55–86
--- NOTE | 2019-08-30 01:25 | NUR ---
ROUNDS PATIENT QUIETLY LAYING IN BED SLEEPING. ON BIPAP. NO DISTRESS OR PAIN NOTED. VS STABLE. WILL CONTINUE TO MONITOR.
[2019-08-30] MEDS: LEVALBUTEROL HCL 1.25 MG/3 ML NEB NEB SCH ×6 (02:00→22:24)
--- NOTE | 2019-08-30 04:40 | NUR ---
MORNING HYGIENE CARE FULL BED BATH PERFORMED WITH CHG WIPES AND WARM SOAPY WASH CLOTHES. GOWN CHANGED. PARTIAL LINEN CHANGE. PATIENT REPOSITIONED FOR COMFORT. TOLERATED IT WELL.
[2019-08-30 05:22] LABS: Hematocrit 29.3 % (36.0-46.0); Hemoglobin 8.6 g/dL (12.2-16.2)
[2019-08-30 05:41] LABS: Potassium 3.7 mmol/L (3.5-5.1)
[2019-08-30] MEDS: NYSTATIN (MOUTH-THROAT) 500,000 UNITS/5 ML SUSP MT SCH ×4 (05:44→21:41)
[2019-08-30] MEDS: ACCU-CHEK COMFORT CURVE STRIP VI SCH ×3 (05:45→18:00)
[2019-08-30] MEDS: ROPINIROLE 3 MG PO SCH ×3 (05:45→21:42)
[2019-08-30] MEDS: InsuLIN REG 1unit/0.01ml Soln (100units/ml) SC SCH ×3 (05:46→18:33)
[2019-08-30 05:47] LABS: Calcium 9.4 mg/dL (8.5-10.1)
[2019-08-30] MEDS: BUDESONIDE (INHALATION) 0.5 MG/2 ML NEB NEB SCH ×2 (07:28→19:17)
[2019-08-30] MEDS: IPRATROPIUM BROM 0.5 MG/2.5ML INH SOL NEB SCH ×4 (07:28→22:24)
--- NOTE | 2019-08-30 07:45 | NUR ---
END OF SHIFT REPORT GIVEN AND CARE ENDORSED TO EROS TALLEY.
--- NOTE | 2019-08-30 08:15 | NUR ---
PATIENT'S VISITS - UPDATED ON PATIENT CONDITION - VERBALIZES UNDERSTANDING. Addendum: 08/30/19 at 1037 by Lianne Jasmine RN PATIENT'S PHONES - DID NOT VISIT.
--- NOTE | 2019-08-30 09:15 | NUR ---
O2 DECREASED FORM 3.5 L PER OXYMIZER TO 3L PER OXYMIZER - WILL CONTINUE TO MONITOR SAO2.
[2019-08-30] MEDS: cefTRIAXone 1GM/50ML D5W 50 ML IV SCH (09:40)
[2019-08-30] MEDS ORDERED: FLUCONAZOLE 100 MG TAB PO SCH (10:00)
[2019-08-30] MEDS ORDERED: INSULIN LANTUS (GLARGINE) 1 /0.01ml (100units/ml) SC SCH (10:00)
--- NOTE | 2019-08-30 10:00 | NUR ---
DR BAUER VISITS AND EXAMINES PATIENT - ORDERS RECEIVED.
[2019-08-30] MEDS: LACTULOSE 20Gm/30ML SOLN PO SCH (10:56)
[2019-08-30] MEDS: predniSONE 20 MG TAB PO SCH (10:56)
[2019-08-30] MEDS: FERROUS SULFATE 325 MG TAB PO SCH ×2 (10:57→21:42)
[2019-08-30] MEDS: POTASSIUM CHL 20 Meq TABLET PO SCH ×2 (10:57→21:41)
[2019-08-30] MEDS: PANTOPRAZOLE 40 MG TAB PO SCH ×2 (10:58→21:42)
[2019-08-30] MEDS: DILTIAZEM HCL 120MG ER CAP PO SCH (11:01)
[2019-08-30] MEDS: AMIODARONE HCL 200 MG TAB PO SCH ×2 (11:01→21:42)
[2019-08-30] MEDS: INSULIN LANTUS (GLARGINE) 1 /0.01ml (100units/ml) SC SCH ×2 (11:14→21:42)
[2019-08-30] MEDS: DULoxetine HCL 30 MG CAP PO SCH ×2 (11:19→21:42)
--- NOTE | 2019-08-30 11:33 | NUR ---
DR AU VISITS AND EXAMINES PATIENT - DECREASED O2 TO 2L PER OXYMIZER - SAO2 92-95%, WILL CONTINUE TO MONITOR SAO2.
[2019-08-30] MEDS: lamoTRIgine 100 MG TAB PO SCH (11:36)
[2019-08-30] MEDS: MIRTAZAPINE 30 MG TAB PO SCH (11:37)
--- NOTE | 2019-08-30 12:00 | NUR ---
ATTEMPTED TO CALL REPORT TO DARLIN ON CENTRAL UNIT - WILL RETURN MY CALL - OCCUPIED AT PRESENT.
--- NOTE | 2019-08-30 12:20 | NUR ---
REPORT REPORT RECEIVED FROM MAYANK COONEY. ALL QUESTIONS/CONCERNS ANSWERED
--- NOTE | 2019-08-30 12:36 | NUR ---
PATIENT TRANSPORTED TO ROOM 221-B PER BED WITH BELONGINGS ON PORTABLE O2 @2L PER OXYMIZER AND TELE MONITOR. Addendum: 08/30/19 at 1238 by Lianne Jasmine RN CONDITION APPEARS STABLE FOR TRANSFER. PATIENT'S SON AT BEDSIDE.
[2019-08-30] MEDS ORDERED: MICAFUNGIN SODIUM 100 MG in SODIUM CHL 0.9% 100 ML IV ONE (13:15)
--- NOTE | 2019-08-30 13:17 | NUR ---
Discharge planning per consult, patient has orders for a BiPAP machine. Referral was sent to [facility] [phone] for auth, and [facility] [phone] for DME. Addendum: 08/30/19 at 1540 by MUSHTAQ BARNARD Placed a followup call to [facility], spoke with Aric, and was advised because it was a new start up, I would need to speak with the coordinator. He asked for my contact information, which was provided, and advised he would have a rep call me back shortly.
--- NOTE | 2019-08-30 13:29 | NUR ---
assessment re: ss consult Patient is a 58 year old female who is alert and oriented. Patients cognitive abilities are intact. Prior to admission patient lived home with her son and functioned with assistance. Per patient she will return home to her prior living arrangements post discharge and family will transport her home. Patient informed me her son helps her with cooking and laundry. Patients PCP is Dr Cuenca. Patient informed me she feels safe returning home on discharge. Patient has 02, bipap, wheelchair, and bedside commode for home use. Patient has a ss consult for Bipap. Per patient she already has one. Gwendolyn will follow up with settings. I informed patient she has a right to speak to a social service technician regarding all care. I informed patient she has a right to participate in any and all discharge planning. Patient does not have a POA and advanced directive. I have offered patient information on POA and advanced directives. I informed the patient the advantages and benefits of having an Advanced Directive. Patient verbalized understanding and agreed to discharge plan. Addendum: 08/30/19 at 1331 by Candi SWEENEY Amended: Links added.
--- NOTE | 2019-08-30 14:29 | NUR ---
PT. HAVING A STERILE PROCEDURE DONE AT THE BEDSIDE. UNABLE TO GIVE MN.TX AT THIS TIME, WILL SEE PT. AT NEXT SCHEDULED TIME. NO RESP. DISTRESS OR SOB NOTED.
--- NOTE | 2019-08-30 14:30 | NUR ---
Midline Placement: Patient educated on need for midline placement. All risks and benefits explained and all questions and concerns addresses prior to procedure. 18g/10cm midline inserted via R BASILIC vein using Ultrasound. Sterile technique utilized. Blood return obtained from SINGLE lumen and flushed easily with NS using proper technique. Midline secured with saline lock; biodisc and occlusive dressing applied. Primary RN notified. Midline lot # [id number].
--- NOTE | 2019-08-30 16:51 | NUR ---
Received a call from [facility] rep Jain advising that patient has a BiPAP at home that was delivered and patient signed for on 05/28/2019, therefore no BiPAP will be issued and/or delivered to the hospital bedside; rep advised that she did update the settings in the system for the BiPAP.
[2019-08-30] MEDS: RIVAROXABAN 20 MG TAB PO SCH (18:32)
[2019-08-30] MEDS: FUROSEMIDE 40 MG TAB PO SCH (18:33)
--- NOTE | 2019-08-30 19:25 | NUR ---
Opening Shift Note Assumed care of patient, awake and alert x4. No S/S of distress/SOB or pain. Call light is within reach, side rails up x2, bed is in lowest position. Instructed on POC and to call for assist PRN, will continue to monitor for changes Q1hr and PRN.
[2019-08-30] MEDS: TEMAZEPAM 15 MG CAP PO SCH (21:42)
[2019-08-31] VITALS (7 sets, daily range): BP systolic 109–138; BP diastolic 66–73
[2019-08-31] MEDS: ACCU-CHEK COMFORT CURVE STRIP VI SCH ×4 (00:19→18:02)
[2019-08-31] MEDS: InsuLIN REG 1unit/0.01ml Soln (100units/ml) SC SCH ×4 (00:19→18:02)
--- NOTE | 2019-08-31 02:00 | NUR ---
RT NOT AVAILABLE DUE TO CODE BLUE IN ICU
[2019-08-31] MEDS: LEVALBUTEROL HCL 1.25 MG/3 ML NEB NEB SCH ×6 (06:28→22:15)
[2019-08-31] MEDS: IPRATROPIUM BROM 0.5 MG/2.5ML INH SOL NEB SCH ×5 (06:30→22:15)
--- NOTE | 2019-08-31 06:30 | NUR ---
Respiratory note: TOOK PATIENT OFF BIPAP AND PLACED ON A 3L OXYMIZER. SPO2 97%
[2019-08-31] MEDS: ROPINIROLE 3 MG PO SCH ×3 (06:47→21:56)
[2019-08-31] MEDS: FUROSEMIDE 40 MG TAB PO SCH ×2 (06:47→18:01)
[2019-08-31] MEDS: NYSTATIN (MOUTH-THROAT) 500,000 UNITS/5 ML SUSP MT SCH ×4 (06:48→21:56)
[2019-08-31] MEDS: lamoTRIgine 100 MG TAB PO SCH (10:00)
[2019-08-31] MEDS: MIRTAZAPINE 30 MG TAB PO SCH (10:01)
[2019-08-31] MEDS: FERROUS SULFATE 325 MG TAB PO SCH ×2 (10:02→21:56)
[2019-08-31] MEDS: AMIODARONE HCL 200 MG TAB PO SCH (10:02)
[2019-08-31] MEDS: predniSONE 20 MG TAB PO SCH (10:02)
[2019-08-31] MEDS: POTASSIUM CHL 20 Meq TABLET PO SCH ×2 (10:02→21:56)
[2019-08-31] MEDS: DULoxetine HCL 30 MG CAP PO SCH ×2 (10:02→21:56)
[2019-08-31] MEDS: LACTULOSE 20Gm/30ML SOLN PO SCH (10:02)
[2019-08-31] MEDS: PANTOPRAZOLE 40 MG TAB PO SCH ×2 (10:04→21:56)
[2019-08-31] MEDS: INSULIN LANTUS (GLARGINE) 1 /0.01ml (100units/ml) SC SCH ×2 (10:06→21:57)
[2019-08-31] MEDS: DILTIAZEM HCL 120MG ER CAP PO SCH (10:06)
[2019-08-31] MEDS: MICAFUNGIN SODIUM 100 MG in SODIUM CHL 0.9% 100 ML IV SCH (10:54)
--- NOTE | 2019-08-31 11:44 | NUR ---
Pt ambulated 30ft w/ CGA using FWW along w/ 3L of O2 Addendum: 08/31/19 at 1145 by Harini Kinsey PT Amended: Links added.
--- NOTE | 2019-08-31 12:41 | NUR ---
PATIENT CONVERTING INTO AFIB WITH VENTRICULAR RATE UP TO 133BPM, AND CONVERTING BACK TO NORMAL SINUS. MD INFORMED/AWARE
[2019-08-31] MEDS: RIVAROXABAN 20 MG TAB PO SCH (18:01)
--- NOTE | 2019-08-31 18:02 | NUR ---
GLUCOSE OF 441 20U GIVEN. HOSPITALIST PAGED. AWAITING RESPONSE
--- NOTE | 2019-08-31 18:48 | NUR ---
HOSPITALIST CALLED BACK WILL CARRY OUT ORDERS TO INCREASE LANTUS TO 25U DAILY. AND INCREASE SCALE, PATIENT ALREADY ON AGGRESSIVE SLIDING SCALE. WILL CONTINUE TO MONITOR
--- NOTE | 2019-08-31 19:48 | NUR ---
Patient called, she had blood in her stool and wanted to show someone. Unable to collect a stool occult sample, instructed patient to call if she was going to have another BM so a sample could be collected. Patient verbalized understanding. Will continue to monitor.
[2019-08-31] MEDS: TEMAZEPAM 15 MG CAP PO SCH (21:57)
[2019-08-31] MEDS: BUDESONIDE (INHALATION) 0.5 MG/2 ML NEB NEB SCH (22:15)
[2019-08-31] MEDS ORDERED: DEXTROSE (50%) 50ML SYRG IV PRN (22:15)
[2019-09-01] MEDS: ACCU-CHEK COMFORT CURVE STRIP VI SCH ×6 (00:12→23:51)
[2019-09-01] MEDS: InsuLIN REG 1unit/0.01ml Soln (100units/ml) SC SCH ×6 (00:12→23:51)
[2019-09-01] MEDS: LEVALBUTEROL HCL 1.25 MG/3 ML NEB NEB SCH ×6 (02:06→22:21)
[2019-09-01 05:36] VITALS: BP 121/71
[2019-09-01 06:23] LABS: Basophils # (auto) 0 uL; Eosinophils # (auto) 0.1 uL; Monocytes % (auto) 9.3 % (0.0-12.0); Red Blood Cells 3.95 10^6/uL (4.0-5.20)
[2019-09-01 06:26] LABS: Basophils % (auto) 0.2 % (0.0-2.0); Hemoglobin 8.8 g/dL (12.2-16.2); Lymphocytes # (auto) 2.2 uL; Lymphocytes % (auto) 19.9 % (10.0-50.0); Mean Corpuscular Hemoglobin 22.4 pg (28.0-32.0); Mean Corpuscular Hgb Conc. 29.5 g/dL (32.0-36.0); Mean Corpuscular Volume 75.9 fL (80.0-100.0); Neutrophils # (auto) 7.6 uL; Neutrophils % (auto) 69.6 % (37.0-80.0); Nucleated Red Blood Cells % 1.6 %; Platelet Count (auto) 473 10^3/uL (140-450); White Blood Cell 10.9 10^3/uL (4.4-10.8)
[2019-09-01 06:30] LABS: Red Cell Distribution Width 25.3 % (11.8-14.3)
[2019-09-01] MEDS: IPRATROPIUM BROM 0.5 MG/2.5ML INH SOL NEB SCH ×5 (06:40→22:20)
[2019-09-01 06:41] VITALS: BP 121/71
[2019-09-01 06:48] LABS: Calcium 8.5 mg/dL (8.5-10.1); Potassium 3.5 mmol/L (3.5-5.1)
[2019-09-01 06:50] LABS: BUN/Creatinine Ratio 30.8
[2019-09-01] MEDS: NYSTATIN (MOUTH-THROAT) 500,000 UNITS/5 ML SUSP MT SCH ×4 (06:54→21:46)
[2019-09-01] MEDS: ROPINIROLE 3 MG PO SCH ×3 (06:54→21:47)
[2019-09-01] MEDS: FUROSEMIDE 40 MG TAB PO SCH ×2 (06:54→18:00)
[2019-09-01] MEDS: ACETAMINOPHEN 500 MG TAB PO PRN ×2 (06:54→18:48)
--- NOTE | 2019-09-01 07:20 | NUR ---
OPENING NOTE ASSUMED CARE OF PT. ALERT AND ORIENTED. NO S/S OF SOB/DISTRESS NOTED. DENIES ANY PAIN. SAFETY PRECAUTIONS IN PLACE. BED SET TO LOWEST POSITION/LOCKED, BEDSIDE RAILS UP X2, CALL LIGHT WITHIN REACH. INSTRUCTED PT TO CALL FOR ASSISTANCE. UPDATED ON POC. WILL CONTINUE TO MONITOR Q1HR AND PRN.
[2019-09-01 09:02] VITALS: BP 123/44
[2019-09-01] MEDS: PANTOPRAZOLE 40 MG TAB PO SCH ×2 (09:53→21:47)
[2019-09-01] MEDS: predniSONE 20 MG TAB PO SCH (09:53)
[2019-09-01] MEDS: FERROUS SULFATE 325 MG TAB PO SCH ×2 (09:53→21:46)
[2019-09-01] MEDS: MIRTAZAPINE 30 MG TAB PO SCH (09:54)
[2019-09-01] MEDS: lamoTRIgine 100 MG TAB PO SCH (09:54)
[2019-09-01] MEDS: DULoxetine HCL 30 MG CAP PO SCH ×2 (09:54→21:47)
[2019-09-01] MEDS: POTASSIUM CHL 20 Meq TABLET PO SCH ×2 (09:54→21:47)
[2019-09-01] MEDS: LACTULOSE 20Gm/30ML SOLN PO SCH (09:55)
[2019-09-01] MEDS: DILTIAZEM HCL 120MG ER CAP PO SCH (09:55)
[2019-09-01] MEDS: INSULIN LANTUS (GLARGINE) 1 /0.01ml (100units/ml) SC SCH ×2 (09:56→21:48)
[2019-09-01] MEDS ORDERED: INSULIN LANTUS (GLARGINE) 1 /0.01ml (100units/ml) SC SCH (10:00)
[2019-09-01] MEDS: AMIODARONE HCL 200 MG TAB PO SCH (10:04)
[2019-09-01] MEDS: MICAFUNGIN SODIUM 100 MG in SODIUM CHL 0.9% 100 ML IV SCH (10:05)
[2019-09-01] MEDS: BUDESONIDE (INHALATION) 0.5 MG/2 ML NEB NEB SCH ×2 (10:30→22:21)
[2019-09-01] MEDS ORDERED: DEXTROSE (50%) 50ML SYRG IV PRN (10:30)
--- NOTE | 2019-09-01 10:44 | NUR ---
PT 1st AM visit, patient just got back ambulating from bed><toilet by herself. 2nd AM visit, patient was having breathing treatment. Addendum: 09/01/19 at 1046 by KHUSHBOO FOSTER PTT Amended: Links added.
[2019-09-01 12:19] VITALS: BP 136/72
[2019-09-01 16:46] VITALS: BP 119/56
[2019-09-01] MEDS: RIVAROXABAN 20 MG TAB PO SCH (18:00)
--- NOTE | 2019-09-01 19:30 | NUR ---
Opening Shift Note Assumed care of patient, awake and alert x4. No S/S of distress/SOB or pain. Call light is within reach, side rails up x2, bed is in lowest position. Oxygen is at 3L/min vi nasal cannula. Walker is at bedside. Instructed on POC and to call for assist PRN, will continue to monitor for changes Q1hr and PRN.
[2019-09-01] MEDS: TEMAZEPAM 15 MG CAP PO SCH (21:47)
[2019-09-01] MEDS: HYDROCORTISONE ACET 25 MG RECTAL SUPP PR SCH (21:48)
[2019-09-01 22:19] VITALS: BP 123/69
[2019-09-02] MEDS: LEVALBUTEROL HCL 1.25 MG/3 ML NEB NEB SCH ×4 (02:42→14:21)
[2019-09-02 05:41] VITALS: BP 140/67
[2019-09-02] MEDS: InsuLIN REG 1unit/0.01ml Soln (100units/ml) SC SCH ×2 (06:00→12:35)
[2019-09-02] MEDS: ACCU-CHEK COMFORT CURVE STRIP VI SCH ×2 (06:28→12:00)
[2019-09-02] MEDS: IPRATROPIUM BROM 0.5 MG/2.5ML INH SOL NEB SCH ×3 (06:32→14:21)
--- NOTE | 2019-09-02 06:32 | NUR ---
Respiratory note: PT TAKEN OFF BIPAP AT THIS TIME. PT GIVEN MEDNEB TX. PLACED ON 3L NC. NO RESPIRATORY DISTRESS NOTED. RN AT BEDSIDE.
[2019-09-02] MEDS: ROPINIROLE 3 MG PO SCH ×2 (06:55→15:16)
[2019-09-02] MEDS: NYSTATIN (MOUTH-THROAT) 500,000 UNITS/5 ML SUSP MT SCH ×2 (06:55→12:34)
[2019-09-02] MEDS: FUROSEMIDE 40 MG TAB PO SCH (06:56)
[2019-09-02 07:14] LABS: Hemoglobin 8.7 g/dL (12.2-16.2)
--- NOTE | 2019-09-02 07:30 | NUR ---
OPENING SHIFT NOTE: Received report from NOC RNJeanne. Assumed care of patient. Patient resting in bed, denies pain. Bed in lowest position, rails x2 up and call light within reach. Updated on plan of care. Will continue to monitor.
[2019-09-02 09:00] VITALS: BP 122/66
[2019-09-02] MEDS ORDERED: predniSONE 20 MG TAB PO SCH (10:00)
[2019-09-02] MEDS: BUDESONIDE (INHALATION) 0.5 MG/2 ML NEB NEB SCH (10:11)
[2019-09-02] MEDS: LACTULOSE 20Gm/30ML SOLN PO SCH (10:31)
[2019-09-02] MEDS: POTASSIUM CHL 20 Meq TABLET PO SCH (10:32)
[2019-09-02] MEDS: DULoxetine HCL 30 MG CAP PO SCH (10:32)
[2019-09-02] MEDS: AMIODARONE HCL 200 MG TAB PO SCH (10:32)
[2019-09-02] MEDS: FERROUS SULFATE 325 MG TAB PO SCH (10:33)
[2019-09-02] MEDS: MIRTAZAPINE 30 MG TAB PO SCH (10:33)
[2019-09-02] MEDS: DILTIAZEM HCL 120MG ER CAP PO SCH (10:34)
[2019-09-02] MEDS: lamoTRIgine 100 MG TAB PO SCH (10:35)
[2019-09-02] MEDS: HYDROCORTISONE ACET 25 MG RECTAL SUPP PR SCH (10:35)
[2019-09-02] MEDS: PANTOPRAZOLE 40 MG TAB PO SCH (10:35)
[2019-09-02] MEDS: MICAFUNGIN SODIUM 100 MG in SODIUM CHL 0.9% 100 ML IV SCH (10:36)
[2019-09-02] MEDS: INSULIN LANTUS (GLARGINE) 1 /0.01ml (100units/ml) SC SCH (10:37)
[2019-09-02] MEDS ORDERED: AMIO200T4 PO (10:52)
[2019-09-02] MEDS ORDERED: DILT120C12 PO (10:52)
[2019-09-02] MEDS ORDERED: FLUC200T50 PO (10:52)
[2019-09-02] MEDS ORDERED: FER325T PO (10:56)
[2019-09-02 13:00] VITALS: BP 147/43
[2019-09-02 15:16] VITALS: BP 122/66
[2019-09-02 15:49] VITALS: BP 122/66
[2019-09-02 17:00] VITALS: BP 130/47
--- NOTE | 2019-09-02 17:18 | NUR ---
Discharge instructions given as ordered. Encourage to follow up with PMD as instructed. All questions and concerns addressed. Patient verbalized understanding. Medication reconciliation form completed and copy given to patient. Home medications held in Pharmacy returned to patient, and needed vaccines given. IV removed with catheter intact, pressure dressing applied, weber catheter removed. Telemetry unit returned to ICU. Patient taken to vehicle via wheelchair with all personal belongings, accompanied by staff and family member. No distress noted at time of departure.
== END 2019-09-02 17:15 | disposition home or self-care (01) | DRG 133 ==
LOC: EDBD 06:23 → ER 06:23 → TELE 06:24 → TELE-WESTW 15:31 → DOU IN ICU 08-27 10:56 → TELE-CENTR 08-30 12:25
PROVIDERS: ADMIT Nurse Practitioner Acute Care; ATTEND Internal Medicine
PROC: 5A09357 Assistance with Respiratory Ventilation, Less than 24 Consecutive Hours, Continuous Positive Airway Pressure (ICD-10-PCS; principal; 2019-08-25)
PROC: 5A09357 Assistance with Respiratory Ventilation, Less than 24 Consecutive Hours, Continuous Positive Airway Pressure (ICD-10-PCS; 2019-08-26)
PROC: 5A09357 Assistance with Respiratory Ventilation, Less than 24 Consecutive Hours, Continuous Positive Airway Pressure (ICD-10-PCS; 2019-08-27)
PROC: 5A09357 Assistance with Respiratory Ventilation, Less than 24 Consecutive Hours, Continuous Positive Airway Pressure (ICD-10-PCS; 2019-08-28)
PROC: 5A09357 Assistance with Respiratory Ventilation, Less than 24 Consecutive Hours, Continuous Positive Airway Pressure (ICD-10-PCS; 2019-08-29)
PROC: 5A09357 Assistance with Respiratory Ventilation, Less than 24 Consecutive Hours, Continuous Positive Airway Pressure (ICD-10-PCS; 2019-08-30)
PROC: 5A09357 Assistance with Respiratory Ventilation, Less than 24 Consecutive Hours, Continuous Positive Airway Pressure (ICD-10-PCS; 2019-08-31)
PROC: 5A09357 Assistance with Respiratory Ventilation, Less than 24 Consecutive Hours, Continuous Positive Airway Pressure (ICD-10-PCS; 2019-09-01)
PROC: 5A09357 Assistance with Respiratory Ventilation, Less than 24 Consecutive Hours, Continuous Positive Airway Pressure (ICD-10-PCS; 2019-09-02)
DX: J96.21 Acute and chronic respiratory failure with hypoxia (principal); I50.33 Acute on chronic diastolic (congestive) heart failure; J18.1 Lobar pneumonia, unspecified organism; D68.59 Other primary thrombophilia; E44.1 Mild protein-calorie malnutrition; I11.0 Hypertensive heart disease with heart failure; E11.65 Type 2 diabetes mellitus with hyperglycemia; E66.01 Morbid (severe) obesity due to excess calories; Z99.81 Dependence on supplemental oxygen; I48.0 Paroxysmal atrial fibrillation; J44.1 Chronic obstructive pulmonary disease with (acute) exacerbation; K64.4 Residual hemorrhoidal skin tags; B19.20 Unspecified viral hepatitis C without hepatic coma; D72.829 Elevated white blood cell count, unspecified; I48.92 Unspecified atrial flutter; T38.0X5A Adverse effect of glucocorticoids and synthetic analogues, initial encounter; Y92.89 Other specified places as the place of occurrence of the external cause; Z66 Do not resuscitate; G25.81 Restless legs syndrome; E78.5 Hyperlipidemia, unspecified; F32.9 Major depressive disorder, single episode, unspecified; F41.9 Anxiety disorder, unspecified; J44.0 Chronic obstructive pulmonary disease with (acute) lower respiratory infection; J96.22 Acute and chronic respiratory failure with hypercapnia; N39.0 Urinary tract infection, site not specified; D50.9 Iron deficiency anemia, unspecified; Z96.653 Presence of artificial knee joint, bilateral; Z79.52 Long term (current) use of systemic steroids; Z79.4 Long term (current) use of insulin; Z79.01 Long term (current) use of anticoagulants; Z79.82 Long term (current) use of aspirin; Z79.899 Other long term (current) drug therapy; Z82.0 Family history of epilepsy and other diseases of the nervous system; Z87.442 Personal history of urinary calculi; Z80.0 Family history of malignant neoplasm of digestive organs; Z87.891 Personal history of nicotine dependence; Z88.2 Allergy status to sulfonamides; Z88.8 Allergy status to other drugs, medicaments and biological substances; Z68.44 Body mass index [BMI] 60.0-69.9, adult
CPT/HCPCS: 36415; 36600; 71045; 80048; 80053; 81001; 82805; 82962; 83735; 83880; 84443; 84484; 85014; 85018; 85025; 87070; 87077; 87081; 87205; 87804; 93005; 94640; 94660; 94762; 97116; 97163; 97530; G0378; J0696; J1815; J2248; J2405

== ENCOUNTER 2019-10-18 09:12 | Inpatient (IN) | payer MEDICAID ==
[~2019-10-18] VITALS: Ht 157.5 cm; Wt 160.9 kg
[~2019-10-18 09:12] MED LIST changes: -AMIO200T33 PO; +AMIO200T4 PO; +DILT120C12 PO; +FLUC200T50 PO; -INSREG3 IV; +INSREG3 SC
[2019-10-18 09:45] LABS: Basophils # (auto) 0.1 10 ^3/uL (0-0.2); Eosinophils # (auto) 0.2 10 ^3/uL (0-0.8); Lymphocytes # (auto) 2.5 10 ^3/uL (0.4-5.4); Monocytes # (auto) 1.2 10 ^3/uL (0-1.3); Nucleated Red Blood Cells % 0.2 %
[2019-10-18 09:47] LABS: Basophils % (auto) 0.9 % (0.0-2.0); Eosinophils % (auto) 1.2 % (0.0-7.0); Hematocrit 25.3 % (36.0-46.0); Lymphocytes % (auto) 15.4 % (10.0-50.0); Mean Corpuscular Hemoglobin 22.6 pg (28.0-32.0); Mean Corpuscular Hgb Conc. 27.6 g/dL (32.0-36.0); Mean Corpuscular Volume 81.6 fL (80.0-100.0); Monocytes % (auto) 7.2 % (0.0-12.0); Neutrophils # (auto) 12.2 10 ^3/uL (1.6-8.6); Neutrophils % (auto) 75.3 % (37.0-80.0); Platelet Count (auto) 381 10^3/uL (140-450); White Blood Cell 16.2 10^3/uL (4.4-10.8)
[2019-10-18 09:53] LABS: Red Cell Distribution Width 22.9 % (11.8-14.3)
[2019-10-18 10:00] LABS: Albumin 3.4 g/dL (3.4-5.0); Anion Gap 14 (5-15); Blood Urea Nitrogen 27 mg/dL (7-18); Carbon Dioxide 29 mmol/L (21-32); Chloride 95 mmol/L (98-107); Glucose 271 mg/dL (74-106); Potassium 4.5 mmol/L (3.5-5.1); Sodium 138 mmol/L (136-145)
[2019-10-18 10:05] LABS: Alanine Aminotransferase 25 U/L (13-56); Alkaline Phosphatase 61 U/L (45-117); Aspartate Aminotransferase 16 U/L (15-37); BUN/Creatinine Ratio 19.9; Bilirubin, Total 0.3 mg/dL (0.2-1.0); GFR African American 51 mL/min; GFR Non-African American 42 mL/min; Total Protein 7.3 g/dL (6.4-8.2)
[2019-10-18 11:34] LABS: Urine Bacteria MANY /hpf (None Seen); Urine Blood Negative /uL (Negative); Urine Hyaline Cast MANY /lpf (0 - 2); Urine Mucus FEW (None Seen); Urine Specific Gravity 1.026 (1.001-1.035); Urine WBC 3 /hpf (0 - 5)
[2019-10-18] MEDS ORDERED: FUROSEMIDE 20 MG/2 ML VIAL IV ONE (11:45)
[2019-10-18] MEDS ORDERED: SODIUM CHLORIDE 0.9% 1,000 ML IV SCH (12:58)
[2019-10-18] MEDS ORDERED: NITROGLYCERIN 0.4 MG SL TAB SL PRN (13:00)
[2019-10-18] MEDS ORDERED: MORPHINE SULF INJ 2 MG/ML SYRINGE 1ML IV PRN ×2 (13:00)
[2019-10-18] MEDS ORDERED: ONDANSETRON HCL 4 MG/2 ML VIAL IV PRN (13:00)
[2019-10-18] MEDS ORDERED: traMADol HCL 50 MG TAB PO PRN (13:00)
[2019-10-18] MEDS ORDERED: ALBUTEROL SULF 2.5 MG/0.5ML(0.5%) NEB SOLN NEB PRN (13:00)
[2019-10-18] MEDS ORDERED: ACETAMINOPHEN 500 MG TAB PO PRN (13:00)
[2019-10-18] MEDS ORDERED: DEXTROSE (50%) 50ML SYRG IV PRN (13:00)
[2019-10-18] MEDS ORDERED: LACTULOSE 20Gm/30ML SOLN PO PRN (13:00)
[2019-10-18] MEDS ORDERED: PANTOPRAZOLE 40 MG/10 ML VIAL INJ IV ONE (13:00)
[2019-10-18 13:32] LABS: Alcohol, Urine < 3.0 mg/dL (0-5); Amphetamine Screen, Urine NEGATIVE (NEGATIVE); Barbiturate Scree,Urine NEGATIVE (NEGATIVE); Benzodiazephine Screen, Urine NEGATIVE (NEGATIVE); Cannabinoid Screen, Urine NEGATIVE (NEGATIVE); Cocaine Screen, Urine NEGATIVE (NEGATIVE); Opiate Scree,Urine NEGATIVE (NEGATIVE); Phencyclidine Screen, Urine NEGATIVE (NEGATIVE)
[2019-10-18] MEDS ORDERED: FUROSEMIDE 100 MG/10ML VIAL IV ONE (13:45)
[2019-10-18] MEDS ORDERED: metroNIDAZOLE 500MG/100ML 100 ML IV SCH (14:00)
[2019-10-18] MEDS ORDERED: OSELTAMIVIR 75 MG CAP PO ONE (14:45)
[2019-10-18] MEDS ORDERED: methylPREDNISolone SOD SUCC 125 MG/2 ML VL IV ONE (14:45)
[2019-10-18 15:00] VITALS: BP 124/39
[2019-10-18] MEDS ORDERED: LORazepam 0.5 MG TAB PO ONE (15:00)
[2019-10-18 15:59] VITALS: BP 114/40
[2019-10-18 16:15] VITALS: BP 113/38
[2019-10-18] MEDS ORDERED: CLINDAMYCIN 300MG IV 50 ML IV ONE (16:15)
[2019-10-18 17:15] VITALS: BP 115/50
[2019-10-18] MEDS: InsuLIN REG 1unit/0.01ml Soln (100units/ml) SC SCH ×2 (17:54→21:56)
[2019-10-18] MEDS: ACCU-CHEK COMFORT CURVE STRIP VI SCH ×2 (17:54→21:56)
[2019-10-18 18:12] VITALS: BP 106/61
[2019-10-18] MEDS: ALBUTEROL SULF 2.5 MG/0.5ML(0.5%) NEB SOLN NEB SCH ×2 (18:15→23:50)
[2019-10-18] MEDS: IPRATROPIUM BROM 0.5 MG/2.5ML INH SOL NEB SCH ×2 (18:16→23:50)
--- NOTE | 2019-10-18 18:30 | NUR ---
PT WAS REMOVED FROM BIPAP AND PLACED ON MED NEB TX. AFTER TX PLACED ON 4LNC AND TOLERATING WELL. WILL CONTINUE TO MONITOR.
[2019-10-18 20:12] LABS: Hematocrit 26.6 % (36.0-46.0); Hemoglobin 8.1 g/dL (12.2-16.2)
[2019-10-18] MEDS: methylPREDNISolone SOD SUCC 40 MG/ML VL IV SCH (21:16)
[2019-10-18] MEDS: ATORVASTATIN 20 MG TAB PO SCH (21:44)
[2019-10-18] MEDS: PANTOPRAZOLE 40 MG TAB PO SCH (21:44)
[2019-10-18] MEDS: lamoTRIgine 100 MG TAB PO SCH (21:54)
[2019-10-18] MEDS: INSULIN LANTUS (GLARGINE) 1 /0.01ml (100units/ml) SC SCH (21:54)
[2019-10-18] MEDS: DULoxetine HCL 30 MG CAP PO SCH (21:54)
[2019-10-18] MEDS ORDERED: FERROUS SULFATE 325 MG TAB PO SCH (22:00)
[2019-10-18] MEDS: ROPINIROLE HYDROCHLORIDE 0.5 MG PO SCH (22:00)
[2019-10-18] MEDS ORDERED: OSELTAMIVIR 75 MG CAP PO SCH (22:00)
[2019-10-18] MEDS: CLINDAMYCIN 300MG IV 50 ML IV SCH (22:03)
[2019-10-19 01:02] LABS: Hematocrit 26.8 % (36.0-46.0); Hemoglobin 7.7 g/dL (12.2-16.2)
[2019-10-19] MEDS: methylPREDNISolone SOD SUCC 40 MG/ML VL IV SCH ×3 (04:18→22:34)
[2019-10-19] MEDS: ROPINIROLE HYDROCHLORIDE 0.5 MG PO SCH (06:00)
[2019-10-19] MEDS: CLINDAMYCIN 300MG IV 50 ML IV SCH ×3 (06:11→22:48)
[2019-10-19 06:51] LABS: Albumin 3.5 g/dL (3.4-5.0); Calcium 8.7 mg/dL (8.5-10.1); Potassium 5.2 mmol/L (3.5-5.1)
[2019-10-19 06:55] LABS: Bilirubin, Total 0.2 mg/dL (0.2-1.0); Total Protein 7.1 g/dL (6.4-8.2)
[2019-10-19] MEDS: InsuLIN REG 1unit/0.01ml Soln (100units/ml) SC SCH ×5 (07:00→22:53)
[2019-10-19] MEDS: ALBUTEROL SULF 2.5 MG/0.5ML(0.5%) NEB SOLN NEB SCH ×4 (07:00→23:45)
[2019-10-19] MEDS: IPRATROPIUM BROM 0.5 MG/2.5ML INH SOL NEB SCH ×4 (07:00→23:46)
[2019-10-19] MEDS: ACCU-CHEK COMFORT CURVE STRIP VI SCH ×4 (07:07→22:49)
[2019-10-19 07:20] LABS: Basophils # (auto) 0 10 ^3/uL (0-0.2); Eosinophils # (auto) 0 10 ^3/uL (0-0.8); Lymphocytes # (auto) 1.2 10 ^3/uL (0.4-5.4); Monocytes # (auto) 0.1 10 ^3/uL (0-1.3); Nucleated Red Blood Cells % 0.5 %; White Blood Cell 11.8 10^3/uL (4.4-10.8)
[2019-10-19 07:22] LABS: Basophils % (auto) 0.3 % (0.0-2.0); Hemoglobin 7.6 g/dL (12.2-16.2); Lymphocytes % (auto) 10.3 % (10.0-50.0); Mean Corpuscular Hemoglobin 23.5 pg (28.0-32.0); Mean Corpuscular Volume 80.8 fL (80.0-100.0); Monocytes % (auto) 1.1 % (0.0-12.0); Neutrophils # (auto) 10.4 10 ^3/uL (1.6-8.6); Neutrophils % (auto) 88.3 % (37.0-80.0); Platelet Count (auto) 341 10^3/uL (140-450); Red Blood Cells 3.22 10^6/uL (4.0-5.20)
[2019-10-19 07:25] LABS: Red Cell Distribution Width 21.7 % (11.8-14.3)
[2019-10-19] MEDS: FERROUS SULFATE 325 MG TAB PO SCH ×2 (09:17→18:24)
--- NOTE | 2019-10-19 09:38 | NUR ---
Telemetry admit from ER FRANSISCO WILSON admitted to Telemetry unit after SBAR received. Patient oriented to TOMASZ FREGOSO RN primary RN, unit, room, bed, and unit policies regarding patient care and visiting hours. Patient now on continuous telemetry monitoring, tele box # 31 and telemetry reading on arrival to unit is SR. Patient placed on 6L Oxygen , weighed by bedscale and encouraged to call if they need something. All questions and concerns addressed, patient verbalized understanding.
[2019-10-19] MEDS: levoFLOXacin 500MG 100 ML IV SCH (11:07)
[2019-10-19] MEDS: DULoxetine HCL 30 MG CAP PO SCH ×2 (11:09→22:35)
[2019-10-19] MEDS: AMIODARONE HCL 200 MG TAB PO SCH (11:09)
[2019-10-19] MEDS: dilTIAZem 120MG ER CAP PO SCH (11:09)
[2019-10-19] MEDS: PANTOPRAZOLE 40 MG TAB PO SCH ×2 (11:09→22:35)
[2019-10-19] MEDS: MIRTAZAPINE 30 MG TAB PO SCH (11:10)
[2019-10-19 11:43] VITALS: BP 148/80
[2019-10-19] MEDS ORDERED: ASPI-231 PO (12:08)
[2019-10-19] MEDS ORDERED: DILT60TA27 PO (12:08)
[2019-10-19] MEDS ORDERED: ROPI5TAB4 PO (12:08)
[2019-10-19] MEDS ORDERED: AMIO200T43 PO (12:08)
[2019-10-19] MEDS ORDERED: IPRAAER6 IN (12:08)
[2019-10-19] MEDS ORDERED: RIVA20TA PO (12:08)
[2019-10-19] MEDS: INSULIN LANTUS (GLARGINE) 1 /0.01ml (100units/ml) SC SCH ×2 (12:34→22:54)
[2019-10-19 12:53] VITALS: BP 102/59
[2019-10-19] MEDS: ROPINIROLE 3 MG PO SCH ×2 (14:00→22:00)
[2019-10-19] MEDS ORDERED: methylPREDNISolone SOD SUCC 40 MG/ML VL IV SCH (17:00)
--- NOTE | 2019-10-19 17:23 | NUR ---
SPOKE TO DR. MORENO. RN UPDATED DR. MORENO ON PATIENTS STATUS AND HGB. NEW ORDERS RECEIVED, READ BACK AND VERIFIED. SEE EMR FOR ORDERS.
[2019-10-19 17:29] VITALS: BP 116/54
[2019-10-19] MEDS ORDERED: FUROSEMIDE 20 MG/2 ML VIAL IV SCH (18:00)
[2019-10-19 18:24] LABS: Basophils # (auto) 0 10 ^3/uL (0-0.2); Basophils % (auto) 0.1 % (0.0-2.0); Eosinophils # (auto) 0 10 ^3/uL (0-0.8); Hemoglobin 7.4 g/dL (12.2-16.2); Mean Corpuscular Hgb Conc. 29.4 g/dL (32.0-36.0); Monocytes # (auto) 0.5 10 ^3/uL (0-1.3)
[2019-10-19] MEDS: FUROSEMIDE 100 MG/10ML VIAL IV SCH (18:25)
[2019-10-19 18:26] LABS: Lymphocytes # (auto) 0.8 10 ^3/uL (0.4-5.4); Lymphocytes % (auto) 5.3 % (10.0-50.0); Mean Corpuscular Hemoglobin 23.7 pg (28.0-32.0); Mean Corpuscular Volume 80.7 fL (80.0-100.0); Neutrophils # (auto) 14.3 10 ^3/uL (1.6-8.6); Neutrophils % (auto) 91.6 % (37.0-80.0); Nucleated Red Blood Cells % 0.6 %; Platelet Count (auto) 355 10^3/uL (140-450); Red Cell Distribution Width 21.6 % (11.8-14.3); White Blood Cell 15.6 10^3/uL (4.4-10.8)
[2019-10-19] MEDS ORDERED: FUROSEMIDE 100 MG/10ML VIAL IV ONE (19:00)
--- NOTE | 2019-10-19 19:25 | NUR ---
Opening Shift Note Assumed care of patient, awake and alert. No S/S of distress/SOB or pain. POC discussed and questions answered. Bed is locked in lowest position with side rails up x2 for safety. call light is within reach and patient is encouraged to call for assistance as needed. Will continue to monitor for changes Q1hr and PRN.
[2019-10-19] MEDS: BUDESONIDE (INHALATION) 0.5 MG/2 ML NEB NEB SCH (21:56)
[2019-10-19 22:00] VITALS: BP 119/61
[2019-10-19] MEDS: ATORVASTATIN 20 MG TAB PO SCH (22:35)
[2019-10-19] MEDS: lamoTRIgine 100 MG TAB PO SCH (22:35)
[2019-10-19] MEDS: TEMAZEPAM 15 MG CAP PO PRN (22:54)
[2019-10-20] VITALS (10 sets, daily range): BP systolic 100–149; BP diastolic 41–76
--- NOTE | 2019-10-20 03:58 | NUR ---
Blood transfusion started per orders. Patient tolerating well, no s/s of distress or SOB noted at this time. Will continue to monitor.
[2019-10-20] MEDS: SODIUM ZIRCONIUM CYCL 10 GM PAK PO SCH ×3 (06:00→22:00)
[2019-10-20] MEDS: FUROSEMIDE 100 MG/10ML VIAL IV SCH ×2 (06:00→17:39)
[2019-10-20] MEDS: ROPINIROLE 3 MG PO SCH ×2 (06:00→13:24)
[2019-10-20] MEDS: IPRATROPIUM BROM 0.5 MG/2.5ML INH SOL NEB SCH ×3 (06:21→18:41)
[2019-10-20] MEDS: ALBUTEROL SULF 2.5 MG/0.5ML(0.5%) NEB SOLN NEB SCH ×3 (06:21→18:41)
[2019-10-20] MEDS: methylPREDNISolone SOD SUCC 40 MG/ML VL IV SCH ×3 (06:48→22:44)
[2019-10-20] MEDS: CLINDAMYCIN 300MG IV 50 ML IV SCH ×3 (06:48→22:45)
[2019-10-20] MEDS: ACCU-CHEK COMFORT CURVE STRIP VI SCH ×4 (06:56→20:30)
[2019-10-20] MEDS: InsuLIN REG 1unit/0.01ml Soln (100units/ml) SC SCH ×4 (06:59→20:26)
[2019-10-20] MEDS: FERROUS SULFATE 325 MG TAB PO SCH ×2 (08:27→17:39)
[2019-10-20] MEDS: MIRTAZAPINE 30 MG TAB PO SCH (10:29)
[2019-10-20] MEDS: DULoxetine HCL 30 MG CAP PO SCH ×2 (10:29→22:43)
[2019-10-20] MEDS: AMIODARONE HCL 200 MG TAB PO SCH (10:30)
[2019-10-20] MEDS: dilTIAZem 120MG ER CAP PO SCH (10:30)
[2019-10-20] MEDS: levoFLOXacin 500MG 100 ML IV SCH (10:30)
[2019-10-20] MEDS: PANTOPRAZOLE 40 MG TAB PO SCH (10:30)
[2019-10-20] MEDS: INSULIN LANTUS (GLARGINE) 1 /0.01ml (100units/ml) SC SCH ×2 (10:35→22:39)
[2019-10-20] MEDS ORDERED: LACTULOSE 20Gm/30ML SOLN PO PRN (11:15)
[2019-10-20] MEDS: BUDESONIDE (INHALATION) 0.5 MG/2 ML NEB NEB SCH ×2 (11:21→18:41)
[2019-10-20] MEDS ORDERED: ALBUTEROL SULF 2.5 MG/0.5ML(0.5%) NEB SOLN NEB ONE (19:00)
[2019-10-20] MEDS ORDERED: DEXTROSE (50%) 50ML SYRG IV ONE (19:00)
[2019-10-20] MEDS ORDERED: CALCIUM GLUC 4.65meq/50ml D5AE 50 ML IV ONE (19:00)
[2019-10-20] MEDS ORDERED: InsuLIN REG 1unit/0.01ml Soln (100units/ml) IV ONE (19:00)
[2019-10-20] MEDS ORDERED: DEXTROSE (50%) 50ML SYRG IV PRN (19:00)
[2019-10-20] MEDS ORDERED: SODIUM ZIRCONIUM CYCL 10 GM PAK PO ONE (19:00)
--- NOTE | 2019-10-20 19:00 | NUR ---
OPENING NOTE Received report from day shift RN. Patient is A&O X's 4 with no s/s of distress and reports no pain at this time. Educated patient on POC and to use call light when in need of assistance. Educated patient that she will be NPO at midnight. Patient verbalized understanding. Bed is in lowest/locked position with side rails up X's 2 and call light is within reach of patient. Will continue care.
--- NOTE | 2019-10-20 19:00 | NUR ---
HELD HYPERKALEMIA SET PER MD ORDER Hyperkalemia set was held. potassium level at 4.4. Per MD, hold this medication set if <5.
[2019-10-20] MEDS ORDERED: SODIUM CHLORIDE 0.9% 1,000 ML IV ONE (19:15)
--- NOTE | 2019-10-20 19:42 | NUR ---
SPOKE WITH MD MORENO Per , wait on hyperkalemia protocol medications until new potassium levels come in. Okay to give the one dose lokelma now. Verified fluid orders. Give one bolus now and continue fluids as ordered.
[2019-10-20] MEDS: SODIUM CHLORIDE 0.9% 1,000 ML IV SCH (20:30)
[2019-10-20 22:19] LABS: Basophils # (auto) 0 10 ^3/uL (0-0.2); Basophils % (auto) 0.1 % (0.0-2.0); Eosinophils # (auto) 0 10 ^3/uL (0-0.8); Hemoglobin 8.5 g/dL (12.2-16.2); Lymphocytes # (auto) 0.5 10 ^3/uL (0.4-5.4); Monocytes # (auto) 0.7 10 ^3/uL (0-1.3); Neutrophils # (auto) 14.2 10 ^3/uL (1.6-8.6)
[2019-10-20 22:21] LABS: Hematocrit 28.3 % (36.0-46.0); Lymphocytes % (auto) 3.3 % (10.0-50.0); Mean Corpuscular Hemoglobin 24.2 pg (28.0-32.0); Mean Corpuscular Hgb Conc. 29.9 g/dL (32.0-36.0); Monocytes % (auto) 4.8 % (0.0-12.0); Neutrophils % (auto) 91.8 % (37.0-80.0); Nucleated Red Blood Cells % 0.5 %; Platelet Count (auto) 370 10^3/uL (140-450); Red Blood Cells 3.49 10^6/uL (4.0-5.20); White Blood Cell 15.5 10^3/uL (4.4-10.8)
[2019-10-20 22:29] LABS: Red Cell Distribution Width 21.1 % (11.8-14.3)
[2019-10-20 22:37] LABS: Albumin 3.5 g/dL (3.4-5.0); Calcium 8.6 mg/dL (8.5-10.1); Potassium 4.4 mmol/L (3.5-5.1)
[2019-10-20 22:40] LABS: Bilirubin, Total 0.3 mg/dL (0.2-1.0)
[2019-10-20 22:41] LABS: BUN/Creatinine Ratio 27.6
[2019-10-20 22:43] LABS: INR 1.03 (0.9-1.15); Partial Thromboplastin Time 22.8 sec (23.64-32.05)
[2019-10-20] MEDS: TEMAZEPAM 15 MG CAP PO PRN (22:43)
[2019-10-20] MEDS: lamoTRIgine 100 MG TAB PO SCH (22:43)
[2019-10-20] MEDS: DOCUSATE SOD 100 MG CAP PO SCH (22:44)
[2019-10-20] MEDS: PANTOPRAZOLE 40 MG/10 ML VIAL INJ IV SCH (22:44)
[2019-10-20] MEDS: ATORVASTATIN 20 MG TAB PO SCH (22:45)
[2019-10-21] VITALS (7 sets, daily range): BP systolic 101–139; BP diastolic 41–66
[2019-10-21] MEDS: ACCU-CHEK COMFORT CURVE STRIP VI SCH ×6 (00:25→19:45)
[2019-10-21] MEDS: InsuLIN REG 1unit/0.01ml Soln (100units/ml) SC SCH ×6 (00:25→19:45)
[2019-10-21] MEDS: IPRATROPIUM BROM 0.5 MG/2.5ML INH SOL NEB SCH ×4 (00:33→19:03)
[2019-10-21] MEDS: ALBUTEROL SULF 2.5 MG/0.5ML(0.5%) NEB SOLN NEB SCH ×4 (00:33→19:03)
[2019-10-21] MEDS: SODIUM CHLORIDE 0.9% 1,000 ML IV SCH ×3 (02:38→10:13)
--- NOTE | 2019-10-21 04:51 | NUR ---
IV insertion IV access obtained, via clean sterile technique by inserting 22 gauge catheter at left wrist after one attempt. IV secured properly. No trauma to site. Patient tolerated well.
[2019-10-21] MEDS: CLINDAMYCIN 300MG IV 50 ML IV SCH ×2 (05:49→15:05)
[2019-10-21] MEDS: SODIUM ZIRCONIUM CYCL 10 GM PAK PO SCH ×3 (05:50→21:46)
[2019-10-21] MEDS: FUROSEMIDE 100 MG/10ML VIAL IV SCH ×2 (05:50→18:00)
[2019-10-21 06:01] LABS: Basophils # (auto) 0 10 ^3/uL (0-0.2); Eosinophils # (auto) 0 10 ^3/uL (0-0.8); Monocytes # (auto) 0.6 10 ^3/uL (0-1.3); Neutrophils # (auto) 12.5 10 ^3/uL (1.6-8.6); White Blood Cell 13.9 10^3/uL (4.4-10.8)
[2019-10-21] MEDS: BUDESONIDE (INHALATION) 0.5 MG/2 ML NEB NEB SCH (06:01)
--- NOTE | 2019-10-21 06:01 | NUR ---
PT AWAKE AND ALERT, TOOK PT OFF CPAP. MEDNEB TX ADMINISTERED VIA MASK, PT TOLERATED WELL, NO ADVERSE REACTIONS NOTED. AFTER TX, PLACED PT ON OXYMIZER 3LPM, SPO2 97%, NO S/S OF RESPIRATORY DISTRESS NOTED. PT AWARE TO PUSH CALL LIGHT AND CALL FOR RT IF NEEDED. WILL RETURN FOR NEXT SCHEDULED TX.
[2019-10-21 06:04] LABS: Eosinophils % (auto) 0.1 % (0.0-7.0); Hematocrit 26.4 % (36.0-46.0); Lymphocytes # (auto) 0.8 10 ^3/uL (0.4-5.4); Lymphocytes % (auto) 5.6 % (10.0-50.0); Mean Corpuscular Hemoglobin 24.2 pg (28.0-32.0); Mean Corpuscular Hgb Conc. 30.2 g/dL (32.0-36.0); Mean Corpuscular Volume 80.1 fL (80.0-100.0); Monocytes % (auto) 4.3 % (0.0-12.0); Nucleated Red Blood Cells % 0.5 %; Platelet Count (auto) 345 10^3/uL (140-450)
[2019-10-21 06:18] LABS: Red Cell Distribution Width 20.8 % (11.8-14.3)
[2019-10-21 06:19] LABS: INR 1.03 (0.9-1.15); Partial Thromboplastin Time 22.5 sec (23.64-32.05)
[2019-10-21 06:26] LABS: Potassium 4.7 mmol/L (3.5-5.1)
[2019-10-21 06:32] LABS: Albumin 3.2 g/dL (3.4-5.0); BUN/Creatinine Ratio 23.8; Bilirubin, Total 0.2 mg/dL (0.2-1.0); Calcium 8.3 mg/dL (8.5-10.1); Total Protein 6.6 g/dL (6.4-8.2)
--- NOTE | 2019-10-21 07:00 | NUR ---
Opening Shift Note Received report on the patient. Awake lying in bed. Discussed plan of care with the patient. The patient does not show an signs of distress at this time. Bed is in the lowest position, side rails up x2, and the call light is within reach. Will continue to monitor.
[2019-10-21] MEDS: FERROUS SULFATE 325 MG TAB PO SCH ×3 (08:00→18:22)
--- NOTE | 2019-10-21 09:24 | NUR ---
Stress Test Patient will not be going for a stress test because she is too large for the machine.
[2019-10-21] MEDS: cefTRIAXone 1GM/50ML D5W 50 ML IV SCH (10:07)
[2019-10-21] MEDS: DOCUSATE SOD 100 MG CAP PO SCH ×2 (10:08→21:44)
[2019-10-21] MEDS: dilTIAZem 120MG ER CAP PO SCH (10:08)
[2019-10-21] MEDS: PANTOPRAZOLE 40 MG/10 ML VIAL INJ IV SCH ×2 (10:08→21:45)
[2019-10-21] MEDS: methylPREDNISolone SOD SUCC 40 MG/ML VL IV SCH ×2 (10:08→21:46)
[2019-10-21] MEDS: MIRTAZAPINE 30 MG TAB PO SCH (10:09)
[2019-10-21] MEDS: DULoxetine HCL 30 MG CAP PO SCH ×2 (10:09→21:45)
[2019-10-21] MEDS: AMIODARONE HCL 200 MG TAB PO SCH (10:09)
[2019-10-21] MEDS: INSULIN LANTUS (GLARGINE) 1 /0.01ml (100units/ml) SC SCH ×2 (10:11→21:43)
[2019-10-21] MEDS ORDERED: IRON SUCROSE COMPLEX 200 MG in SODIUM CHL 0.9% 100 ML IV ONE (15:57)
[2019-10-21] MEDS ORDERED: IRON SUCROSE COMPLEX 200 MG in SODIUM CHL 0.9% 100 ML IV SCH (16:00)
--- NOTE | 2019-10-21 19:00 | NUR ---
OPENING NOTE Received report from day shift RN. Patient is A&O X's 4 with no s/s of distress and reports no pain at this time. Educated patient on POC and to use call light when in need of assistance. Patient verbalized understanding. Bed is in lowest/locked position with side rails up X's 2 and call light is within reach of patient. Will continue care
[2019-10-21] MEDS: lamoTRIgine 100 MG TAB PO SCH (21:44)
[2019-10-21] MEDS: ATORVASTATIN 20 MG TAB PO SCH (21:45)
[2019-10-21] MEDS: METOPROLOL TARTRATE 25 MG TAB PO SCH (21:45)
[2019-10-21] MEDS: TEMAZEPAM 15 MG CAP PO PRN (22:25)
[2019-10-22] MEDS: IPRATROPIUM BROM 0.5 MG/2.5ML INH SOL NEB SCH ×3 (00:05→11:35)
[2019-10-22] MEDS: ALBUTEROL SULF 2.5 MG/0.5ML(0.5%) NEB SOLN NEB SCH ×3 (00:05→11:35)
[2019-10-22] MEDS: BUDESONIDE (INHALATION) 0.5 MG/2 ML NEB NEB SCH ×2 (00:05→06:25)
[2019-10-22] MEDS: InsuLIN REG 1unit/0.01ml Soln (100units/ml) SC SCH ×4 (00:29→12:00)
[2019-10-22] MEDS: ACCU-CHEK COMFORT CURVE STRIP VI SCH ×4 (00:30→12:00)
[2019-10-22 03:04] VITALS: BP 103/46
[2019-10-22] MEDS: FUROSEMIDE 100 MG/10ML VIAL IV SCH (05:22)
[2019-10-22 05:57] VITALS: BP 117/86
[2019-10-22 07:14] LABS: Basophils # (auto) 0 10 ^3/uL (0-0.2); Basophils % (auto) 0.1 % (0.0-2.0); Eosinophils # (auto) 0 10 ^3/uL (0-0.8); Hemoglobin 9.5 g/dL (12.2-16.2); Monocytes # (auto) 1.2 10 ^3/uL (0-1.3)
[2019-10-22 07:16] LABS: Hematocrit 31.7 % (36.0-46.0); Lymphocytes # (auto) 1.2 10 ^3/uL (0.4-5.4); Lymphocytes % (auto) 8.4 % (10.0-50.0); Mean Corpuscular Hgb Conc. 29.9 g/dL (32.0-36.0); Mean Corpuscular Volume 80.2 fL (80.0-100.0); Monocytes % (auto) 8.5 % (0.0-12.0); Neutrophils # (auto) 11.5 10 ^3/uL (1.6-8.6); Platelet Count (auto) 414 10^3/uL (140-450); Red Blood Cells 3.96 10^6/uL (4.0-5.20); White Blood Cell 13.8 10^3/uL (4.4-10.8)
[2019-10-22 07:28] LABS: Red Cell Distribution Width 21.7 % (11.8-14.3)
[2019-10-22 07:34] LABS: BUN/Creatinine Ratio 29.6; Calcium 9.2 mg/dL (8.5-10.1); Potassium 4.4 mmol/L (3.5-5.1)
[2019-10-22 09:00] VITALS: BP 148/72
[2019-10-22] MEDS: MIRTAZAPINE 30 MG TAB PO SCH (09:42)
[2019-10-22] MEDS: dilTIAZem 120MG ER CAP PO SCH (09:42)
[2019-10-22] MEDS: FERROUS SULFATE 325 MG TAB PO SCH (09:44)
[2019-10-22] MEDS: DULoxetine HCL 30 MG CAP PO SCH (09:44)
[2019-10-22] MEDS: AMIODARONE HCL 200 MG TAB PO SCH (09:44)
[2019-10-22] MEDS: DOCUSATE SOD 100 MG CAP PO SCH (09:44)
[2019-10-22] MEDS: METOPROLOL TARTRATE 25 MG TAB PO SCH (09:45)
[2019-10-22] MEDS: cefTRIAXone 1GM/50ML D5W 50 ML IV SCH (09:46)
[2019-10-22] MEDS: PANTOPRAZOLE 40 MG/10 ML VIAL INJ IV SCH (09:47)
[2019-10-22] MEDS: methylPREDNISolone SOD SUCC 40 MG/ML VL IV SCH (09:47)
[2019-10-22] MEDS: INSULIN LANTUS (GLARGINE) 1 /0.01ml (100units/ml) SC SCH (10:39)
[2019-10-22] MEDS ORDERED: IRON SUCROSE COMPLEX 200 MG in SODIUM CHL 0.9% 100 ML IV SCH (12:00)
[2019-10-22 14:20] VITALS: BP 127/65
--- NOTE | 2019-10-22 15:20 | NUR ---
NUTRITION ASSESSMENT NOTES Please refer to link notes of nutrition screen form filed under the intervention section of the plan of care for further details. Est. Energy Needs: 4737-8647 kcal (12-15 kcal/kg BW). Est. Protein Needs: 78-86 gms/day (1.0-1.1 gms/kg Adj.BW). Will continue to monitor pertinent labs and reassess nutrient need prn Addendum: 10/22/19 at [address] Amended: Links added.
[2019-10-22] MEDS ORDERED: FURO1TAB31 PO (15:30)
[2019-10-22] MEDS ORDERED: FER325T PO (15:36)
[2019-10-22] MEDS ORDERED: AZIT250T8 PO (15:44)
[2019-10-22 16:36] VITALS: BP 122/69
[2019-10-22 17:01] VITALS: BP 122/69
--- NOTE | 2019-10-22 18:16 | NUR ---
Discharge instructions given as ordered. Encourage to follow up with PMD as instructed. All questions and concerns addressed. Patient verbalized understanding. Medication reconciliation form completed and copy given to patient. Home medications held in Pharmacy returned to patient Both IVs removed with catheter intact, pressure dressing applied, weber catheter removed. Telemetry unit returned to ICU. Patient taken to vehicle via wheelchair and oxygen with all personal belongings, accompanied by staff and family member. No distress noted at time of departure.
[2019-10-22] MEDS ORDERED: METOPROLOL TARTRATE 25 MG TAB PO SCH (22:00)
[2019-12-29] MEDS ORDERED: DICL1GEL50 TD (01:03)
[2019-12-29] MEDS ORDERED: POTA10TA32 PO (01:03)
[2020-01-03] MEDS ORDERED: POTA10TA32 PO (13:21)
== END 2019-10-22 18:30 | disposition home or self-care (01) | DRG 133 ==
LOC: ER 09:12 → EDBD 09:12 → TELE 09:13 → TELE-CENTR 10-19 09:38
PROVIDERS: ADMIT Internal Medicine; ATTEND Internal Medicine Nephrology
PROC: 5A09357 Assistance with Respiratory Ventilation, Less than 24 Consecutive Hours, Continuous Positive Airway Pressure (ICD-10-PCS; principal; 2019-10-18)
PROC: 30233N1 Transfusion of Nonautologous Red Blood Cells into Peripheral Vein, Percutaneous Approach (ICD-10-PCS; 2019-10-18)
PROC: 5A09357 Assistance with Respiratory Ventilation, Less than 24 Consecutive Hours, Continuous Positive Airway Pressure (ICD-10-PCS; 2019-10-19)
PROC: 5A09357 Assistance with Respiratory Ventilation, Less than 24 Consecutive Hours, Continuous Positive Airway Pressure (ICD-10-PCS; 2019-10-20)
PROC: 5A09357 Assistance with Respiratory Ventilation, Less than 24 Consecutive Hours, Continuous Positive Airway Pressure (ICD-10-PCS; 2019-10-21)
DX: J96.21 Acute and chronic respiratory failure with hypoxia (principal); I50.33 Acute on chronic diastolic (congestive) heart failure; K92.2 Gastrointestinal hemorrhage, unspecified; E11.65 Type 2 diabetes mellitus with hyperglycemia; E66.01 Morbid (severe) obesity due to excess calories; E87.5 Hyperkalemia; G20 Parkinson's disease; Z99.81 Dependence on supplemental oxygen; L03.115 Cellulitis of right lower limb; I11.0 Hypertensive heart disease with heart failure; I48.91 Unspecified atrial fibrillation; J44.1 Chronic obstructive pulmonary disease with (acute) exacerbation; L03.116 Cellulitis of left lower limb; J96.22 Acute and chronic respiratory failure with hypercapnia; B19.20 Unspecified viral hepatitis C without hepatic coma; J98.11 Atelectasis; E78.00 Pure hypercholesterolemia, unspecified; E78.5 Hyperlipidemia, unspecified; Z96.653 Presence of artificial knee joint, bilateral; D72.829 Elevated white blood cell count, unspecified; D50.0 Iron deficiency anemia secondary to blood loss (chronic); F32.9 Major depressive disorder, single episode, unspecified; Z68.44 Body mass index [BMI] 60.0-69.9, adult; Z88.2 Allergy status to sulfonamides; Z88.8 Allergy status to other drugs, medicaments and biological substances; Z87.442 Personal history of urinary calculi; Z82.49 Family history of ischemic heart disease and other diseases of the circulatory system; Z80.0 Family history of malignant neoplasm of digestive organs; Z82.0 Family history of epilepsy and other diseases of the nervous system; Z81.8 Family history of other mental and behavioral disorders; Z87.891 Personal history of nicotine dependence; Z79.52 Long term (current) use of systemic steroids; Z79.01 Long term (current) use of anticoagulants; Z79.4 Long term (current) use of insulin; Z79.899 Other long term (current) drug therapy
CPT/HCPCS: 36415; 36600; 51702; 71045; 80048; 80053; 80307; 81001; 82270; 82378; 82550; 82805; 82962; 83036; 83735; 83835; 83880; 84100; 84443; 84484; 85014; 85018; 85025; 85045; 85610; 85652; 85730; 86141; 86850; 86900; 86901; 86920; 87040; 87081; 87086; 87804; 93005; 93971; 94640; 94644; 94660; 94762; 96374; 99291; C9113; G0378; J0610; J0696; J1756; J1815; J1956; J2405; J3490

== ENCOUNTER 2019-11-07 09:40 | Inpatient (IN) | payer MEDICAID ==
[~2019-11-07] VITALS: Ht 157.5 cm; Wt 153.2 kg
[~2019-11-07 09:40] MED LIST changes: -ALBU108A5 IN; -AMIO200T4 PO; +AMIO200T43 PO; +ASPI-231 PO; +AZIT250T8 PO; -CHOL200039 PO; -DILT120C12 PO; +DILT60TA27 PO; -FLUC200T50 PO; -HYD25RS PR; +IPRAAER6 IN; -PANT40T PO; +RIVA20TA PO; -ROPI0.5T16 PO; +ROPI5TAB4 PO; -TEMA15CA5 PO
[2019-11-07] MEDS ORDERED: methylPREDNISolone SOD SUCC 125 MG/2 ML VL ONE (09:52)
[2019-11-07 10:00] VITALS: BP 155/73
[2019-11-07] MEDS ORDERED: methylPREDNISolone SOD SUCC 125 MG/2 ML VL IV ONE (10:00)
[2019-11-07] MEDS ORDERED: ALBUTEROL SULF 2.5 MG/0.5ML(0.5%) NEB SOLN NEB ONE (10:00)
[2019-11-07] MEDS ORDERED: IPRATROPIUM BROM 0.5 MG/2.5ML INH SOL NEB ONE (10:00)
[2019-11-07] MEDS ORDERED: AZITHROMYCIN 500MG/ 250ML 250 ML IV ONE (10:00)
[2019-11-07] MEDS ORDERED: cefTRIAXone 1GM/50ML D5W 50 ML IV ONE (10:00)
[2019-11-07 10:08] LABS: Basophils # (auto) 0.1 10 ^3/uL (0-0.2); Eosinophils # (auto) 0.3 10 ^3/uL (0-0.8); Lymphocytes # (auto) 2.1 10 ^3/uL (0.4-5.4); Monocytes % (auto) 8.9 % (0.0-12.0); Neutrophils % (auto) 69.4 % (37.0-80.0)
[2019-11-07 10:10] LABS: Basophils % (auto) 0.6 % (0.0-2.0); Eosinophils % (auto) 2.6 % (0.0-7.0); Hematocrit 32.6 % (36.0-46.0); Hemoglobin 9.9 g/dL (12.2-16.2); Lymphocytes % (auto) 18.5 % (10.0-50.0); Mean Corpuscular Hemoglobin 26.2 pg (28.0-32.0); Mean Corpuscular Hgb Conc. 30.2 g/dL (32.0-36.0); Mean Corpuscular Volume 86.7 fL (80.0-100.0); Neutrophils # (auto) 7.9 10 ^3/uL (1.6-8.6); Nucleated Red Blood Cells % 0.1 %; Platelet Count (auto) 294 10^3/uL (140-450); Red Blood Cells 3.76 10^6/uL (4.0-5.20); White Blood Cell 11.4 10^3/uL (4.4-10.8)
[2019-11-07 10:20] LABS: Red Cell Distribution Width 23.9 % (11.8-14.3)
[2019-11-07 10:23] LABS: Albumin 3.4 g/dL (3.4-5.0); Anion Gap 8 (5-15); Blood Urea Nitrogen 10 mg/dL (7-18); Calcium 9.3 mg/dL (8.5-10.1); Carbon Dioxide 34 mmol/L (21-32); Chloride 98 mmol/L (98-107); Glucose 224 mg/dL (74-106); INR 0.91 (0.9-1.15); Partial Thromboplastin Time 25.7 sec (23.64-32.05); Potassium 4.3 mmol/L (3.5-5.1); Sodium 140 mmol/L (136-145)
[2019-11-07 10:29] LABS: Alanine Aminotransferase 28 U/L (13-56); Alkaline Phosphatase 69 U/L (45-117); Aspartate Aminotransferase 18 U/L (15-37); Bilirubin, Total 0.2 mg/dL (0.2-1.0); GFR African American 81 mL/min; GFR Non-African American 67 mL/min; Lactate Dehydrogenase 419 U/L (84-246); Total Protein 7.5 g/dL (6.4-8.2)
[2019-11-07 10:30] LABS: Lactic Acid w/Reflex 4.2 mmol/L (0.4-2.0)
[2019-11-07 11:57] VITALS: BP 147/60
[2019-11-07] MEDS ORDERED: PROMETHAZINE HCL 25 MG/ML 1ML IV PRN (12:15)
[2019-11-07] MEDS ORDERED: ALBUTEROL SULF 2.5 MG/0.5ML(0.5%) NEB SOLN NEB PRN (12:15)
[2019-11-07] MEDS ORDERED: ACETAMINOPHEN 500 MG TAB PO PRN (12:15)
[2019-11-07] MEDS ORDERED: MORPHINE SULF INJ 2 MG/ML SYRINGE 1ML IV PRN (12:15)
[2019-11-07] MEDS ORDERED: traMADol HCL 50 MG TAB PO PRN (12:15)
[2019-11-07] MEDS ORDERED: FUROSEMIDE 40 MG/4 ML VIAL IV ONE (12:15)
[2019-11-07] MEDS ORDERED: DEXTROSE (50%) 50ML SYRG IV PRN (12:15)
[2019-11-07] MEDS ORDERED: NITROGLYCERIN 0.4 MG SL TAB SL PRN (12:15)
[2019-11-07] MEDS ORDERED: LACTULOSE 20Gm/30ML SOLN PO PRN (12:15)
[2019-11-07 13:43] VITALS: BP 113/38
[2019-11-07] MEDS: ISOSORBIDE DINITRATE 10 MG TAB PO SCH ×2 (14:00→22:53)
[2019-11-07] MEDS ORDERED: ROPINIROLE HYDROCHLORIDE PO SCH (14:00)
[2019-11-07] MEDS: SODIUM CHLOR 0.9% PF (SALINE LOCK) 10ML VIAL/SYR IV SCH ×2 (14:05→22:51)
[2019-11-07] MEDS ORDERED: DULO60CA90 PO (14:41)
--- NOTE | 2019-11-07 15:40 | NUR ---
PT REFUSES TO WEAR BIPAP AT THIS TIME, PER PT'S REQUESTED PLACED PT ON 4L OXYMIZER, RN NOTIFIED. PT SAYS SHE NEEDS A BREAK. ADVICED PT TO STAY ON BIPAP BUT PATIENT REFUSED. WILL CONTINUE TO MONTIOR PT.
[2019-11-07] MEDS: ACCU-CHEK COMFORT CURVE STRIP VI SCH ×2 (17:46→22:57)
[2019-11-07] MEDS: InsuLIN REG 1unit/0.01ml Soln (100units/ml) SC SCH ×2 (17:49→22:55)
[2019-11-07] MEDS ORDERED: FUROSEMIDE 40 MG/4 ML VIAL IV SCH (18:00)
[2019-11-07] MEDS: methylPREDNISolone SOD SUCC 40 MG/ML VL IV SCH ×2 (18:23→23:52)
[2019-11-07] MEDS: CARVEDILOL 3.125 MG TAB PO SCH (18:23)
[2019-11-07] MEDS: FERROUS SULFATE 325 MG TAB PO SCH (18:23)
[2019-11-07] MEDS: ALBUTEROL SULF 2.5 MG/0.5ML(0.5%) NEB SOLN NEB SCH (19:07)
[2019-11-07] MEDS: IPRATROPIUM BROM 0.5 MG/2.5ML INH SOL NEB SCH (19:08)
[2019-11-07 20:06] VITALS: BP 128/53
[2019-11-07] MEDS ORDERED: SALMETEROL XINAFOATE 50 MCG IN SCH (22:00)
[2019-11-07] MEDS: AMIODARONE HCL 200 MG TAB PO SCH (22:52)
[2019-11-07] MEDS: DULoxetine HCL 30 MG CAP PO SCH (22:53)
[2019-11-07] MEDS: MIRTAZAPINE 30 MG TAB PO SCH (22:54)
--- NOTE | 2019-11-07 22:55 | NUR ---
Telemetry admit from ER Patient admitted to Telemetry unit. Patient oriented to primary RN, unit, room, bed, and unit policies regarding patient care and visiting hours. Patient now on continuous telemetry monitoring, tele box # 44 and telemetry reading on arrival to unit is sinus rhythm. Patient placed on bedside oxygen, 3L on oxymizer, weighed by bedscale and encouraged to call if they need something. All questions and concerns addressed, patient verbalized understanding. Call light and bedside table are within reach. Safety precautions maintained bed is in lowest position and bed rails 2x.
[2019-11-07] MEDS: INSULIN LANTUS (GLARGINE) 1 /0.01ml (100units/ml) SC SCH (22:56)
--- NOTE | 2019-11-07 23:42 | NUR ---
Patient unable to confirm entirety of medication list Patient provided a small list of certain medications. Those medications confirmed. Son will bring remainder of list to confirm medications in morning.
[2019-11-07] MEDS: TEMAZEPAM 15 MG CAP PO PRN (23:52)
[2019-11-08] MEDS: IPRATROPIUM BROM 0.5 MG/2.5ML INH SOL NEB SCH ×4 (00:07→18:35)
[2019-11-08] MEDS: ALBUTEROL SULF 2.5 MG/0.5ML(0.5%) NEB SOLN NEB SCH ×4 (00:07→18:35)
[2019-11-08 05:00] VITALS: BP 130/61
[2019-11-08] MEDS: SODIUM CHLOR 0.9% PF (SALINE LOCK) 10ML VIAL/SYR IV SCH ×3 (05:34→21:56)
[2019-11-08] MEDS: methylPREDNISolone SOD SUCC 40 MG/ML VL IV SCH (05:48)
[2019-11-08] MEDS: ISOSORBIDE DINITRATE 10 MG TAB PO SCH (05:48)
--- NOTE | 2019-11-08 05:55 | NUR ---
Respiratory note: WENT IN TO ROOM TO GIVE TX AND PATIENT WAS OFF BIPAP SINCE 530AM APPROX. PT WAS ON A 3L OXYMIZER.
[2019-11-08 06:32] LABS: Basophils # (auto) 0 10 ^3/uL (0-0.2); Eosinophils # (auto) 0 10 ^3/uL (0-0.8); Monocytes # (auto) 0.1 10 ^3/uL (0-1.3); Neutrophils # (auto) 7.4 10 ^3/uL (1.6-8.6); Nucleated Red Blood Cells % 0.1 %; White Blood Cell 8.2 10^3/uL (4.4-10.8)
[2019-11-08 06:35] LABS: Hematocrit 29.6 % (36.0-46.0); Hemoglobin 9.2 g/dL (12.2-16.2); Lymphocytes # (auto) 0.7 10 ^3/uL (0.4-5.4); Lymphocytes % (auto) 8.1 % (10.0-50.0); Mean Corpuscular Hemoglobin 26.3 pg (28.0-32.0); Mean Corpuscular Hgb Conc. 30.9 g/dL (32.0-36.0); Mean Corpuscular Volume 85.1 fL (80.0-100.0); Monocytes % (auto) 1.3 % (0.0-12.0); Neutrophils % (auto) 90.6 % (37.0-80.0); Platelet Count (auto) 282 10^3/uL (140-450); Red Blood Cells 3.48 10^6/uL (4.0-5.20)
[2019-11-08] MEDS ORDERED: FUROSEMIDE 100 MG/10ML VIAL IV ONE (06:45)
[2019-11-08 06:46] LABS: Red Cell Distribution Width 23.8 % (11.8-14.3)
[2019-11-08 06:50] LABS: Calcium 8.6 mg/dL (8.5-10.1); Potassium 4.6 mmol/L (3.5-5.1)
[2019-11-08 06:56] LABS: Albumin 3.2 g/dL (3.4-5.0); BUN/Creatinine Ratio 17.9; Bilirubin, Total 0.3 mg/dL (0.2-1.0); Total Protein 6.3 g/dL (6.4-8.2)
[2019-11-08] MEDS: ACCU-CHEK COMFORT CURVE STRIP VI SCH ×4 (07:00→22:27)
[2019-11-08] MEDS: InsuLIN REG 1unit/0.01ml Soln (100units/ml) SC SCH ×4 (07:35→22:29)
--- NOTE | 2019-11-08 07:45 | NUR ---
Opening Shift Note Assumed care of patient, awake, alert and oriented. No S/S of distress/SOB or pain. Bed in lowest/locked position, bed rails up x2, call light within reach. Instructed on POC and to call for assist PRN. Will continue to monitor for changes Q1hr and PRN.
[2019-11-08 09:00] VITALS: BP 139/48
[2019-11-08] MEDS ORDERED: ASPirin-EC 81 mg tab PO SCH (10:00)
[2019-11-08] MEDS ORDERED: ENALAPRIL MALEATE 2.5 MG TAB PO SCH (10:00)
[2019-11-08] MEDS ORDERED: levoFLOXacin 500MG 100 ML IV SCH (10:00)
[2019-11-08] MEDS ORDERED: ASPirin 81 mg TAB PO SCH ×2 (10:00)
[2019-11-08] MEDS ORDERED: ENOXAPARIN SOD 40 MG/0.4 ML SYRINGE SC SCH (10:00)
[2019-11-08] MEDS: DULoxetine HCL 30 MG CAP PO SCH ×2 (10:07→21:54)
[2019-11-08] MEDS: ATORVASTATIN 20 MG TAB PO SCH (10:08)
[2019-11-08] MEDS: RIVAROXABAN 20 MG TAB PO SCH (10:09)
[2019-11-08] MEDS: CARVEDILOL 3.125 MG TAB PO SCH ×2 (10:09→17:52)
[2019-11-08] MEDS: dilTIAZem 120MG ER CAP PO SCH (10:09)
[2019-11-08] MEDS: AMIODARONE HCL 200 MG TAB PO SCH ×2 (10:09→21:55)
[2019-11-08] MEDS: POTASSIUM CHL 20 Meq TABLET PO SCH (10:10)
[2019-11-08] MEDS: lamoTRIgine 100 MG TAB PO SCH (10:10)
[2019-11-08] MEDS: FERROUS SULFATE 325 MG TAB PO SCH ×2 (10:10→17:53)
[2019-11-08] MEDS: PANTOPRAZOLE 40 MG TAB PO SCH (10:10)
[2019-11-08 10:40] LABS: Urine Bacteria FEW /hpf (None Seen); Urine Blood Negative /uL (Negative); Urine Hyaline Cast MOD /lpf (0 - 2); Urine Mucus FEW (None Seen); Urine Specific Gravity 1.011 (1.001-1.035); Urine WBC 5 /hpf (0 - 5)
[2019-11-08 10:54] LABS: Alcohol, Urine < 3.0 mg/dL (0-5); Amphetamine Screen, Urine NEGATIVE (NEGATIVE); Barbiturate Scree,Urine NEGATIVE (NEGATIVE); Benzodiazephine Screen, Urine NEGATIVE (NEGATIVE); Cannabinoid Screen, Urine NEGATIVE (NEGATIVE); Opiate Scree,Urine NEGATIVE (NEGATIVE); Phencyclidine Screen, Urine NEGATIVE (NEGATIVE)
[2019-11-08 10:56] LABS: Cocaine Screen, Urine NEGATIVE (NEGATIVE)
--- NOTE | 2019-11-08 11:10 | NUR ---
MD ROUNDS DR FERNANDEZ AT BEDSIDE DISCUSSING POC WITH PATIENT. ALL QUESTIONS/CONCERNS ANSWERED. NEW ORDERS RECEIVED/ WILL CARRY OUT. WILL CONTINUE TO MONITOR
[2019-11-08] MEDS ORDERED: BUDESONIDE (INHALATION) 0.5 MG/2 ML NEB NEB ONE (11:15)
--- NOTE | 2019-11-08 11:45 | NUR ---
BLOOD SUGARS BLOOD SUGAR 406. NOTIFIED DR FERNANDEZ. MEDICATE PER MD ORDERS/EMAR
[2019-11-08] MEDS ORDERED: METF-371 PO (12:11)
[2019-11-08] MEDS ORDERED: CHOL200039 PO (12:18)
[2019-11-08] MEDS ORDERED: CYAN1TAB14 PO (12:20)
[2019-11-08] MEDS ORDERED: AMIO200T43 PO (12:26)
[2019-11-08] MEDS ORDERED: HYDR4CRE35 PR (12:32)
[2019-11-08] MEDS ORDERED: FURO1TAB31 PO (12:33)
[2019-11-08] MEDS ORDERED: POTA10TA32 PO (12:36)
[2019-11-08] MEDS ORDERED: DIGO0.12 PO (12:46)
[2019-11-08] MEDS ORDERED: INSREG3 SC ×3 (12:53→13:14)
[2019-11-08] MEDS ORDERED: INSU1INJ26 SC ×2 (12:53→12:57)
[2019-11-08 13:00] VITALS: BP 114/36
[2019-11-08] MEDS ORDERED: DILT120C20 PO (13:11)
[2019-11-08] MEDS ORDERED: DILT120C36 PO (13:36)
[2019-11-08] MEDS: ceFAZolin 1GM/50ML 50 ML IV SCH ×2 (14:34→21:53)
[2019-11-08 17:00] VITALS: BP 113/60
[2019-11-08] MEDS ORDERED: FUROSEMIDE 40 MG/4 ML VIAL IV SCH (18:00)
[2019-11-08] MEDS: FUROSEMIDE 100 MG/10ML VIAL IV SCH (18:14)
[2019-11-08] MEDS: BUDESONIDE (INHALATION) 0.5 MG/2 ML NEB NEB SCH (18:35)
--- NOTE | 2019-11-08 18:40 | NUR ---
Respiratory note: AT BEDSIDE FOR MED STU [place].
--- NOTE | 2019-11-08 19:25 | NUR ---
Opening Shift Note Assumed care of patient, awake and alert, resting in bed. No S/S of distress/SOB or pain. Instructed on POC and to call for assist PRN, will continue to monitor for changes Q1hr and PRN. Safety precautions maintained bed is in lowest position and bed rails 2x. Call light and bedside table are within reach.
[2019-11-08] MEDS: PRAMIPEXOLE DIHYDROCHLORIDE MO 0.25 MG TAB PO SCH (21:54)
[2019-11-08] MEDS: MIRTAZAPINE 30 MG TAB PO SCH (21:55)
[2019-11-08] MEDS: TEMAZEPAM 15 MG CAP PO PRN (21:56)
[2019-11-08 21:59] VITALS: BP 120/53
[2019-11-08] MEDS ORDERED: InsuLIN REG 1unit/0.01ml Soln (100units/ml) SC SCH (22:00)
--- NOTE | 2019-11-08 22:14 | NUR ---
BLOOD SUGAR Patient blood sugar 464. Called hospitalist received new orders to administer 15 units of insulin regular at this time and to start patient on aggressive insulin sliding scale ACHS, and to continue with giving the 10 units of insulin lantus as scheduled. Orders executed. Will continue to monitor patient Q1 and PRN.
[2019-11-08] MEDS: INSULIN LANTUS (GLARGINE) 1 /0.01ml (100units/ml) SC SCH (22:37)
[2019-11-08] MEDS ORDERED: DEXTROSE (50%) 50ML SYRG IV PRN (22:45)
[2019-11-09] MEDS: IPRATROPIUM BROM 0.5 MG/2.5ML INH SOL NEB SCH ×5 (00:05→23:36)
[2019-11-09] MEDS: ALBUTEROL SULF 2.5 MG/0.5ML(0.5%) NEB SOLN NEB SCH ×5 (00:05→23:36)
--- NOTE | 2019-11-09 00:05 | NUR ---
Respiratory note: PT PLACED ON BIPAP B6, BIPAP CONNECTED TO RED OUTLET AND O2 SOURCE ALARMS ARE SET AND AUDIBLE. PT ON SIZE (M) MASK. NO BREAKDOWN NOTED PRIOR TO PLACEMENT. BS ARE DIMINISHED T/O MED NEB TX GIVEN INLINE WITHOUT ADVERSE REACTION NOTED. RT NAME AND PAGER ASSIGNMENT WRITTEN ON PTS ROOM BOARD. WILL CONTINUE TO MONITOR. Q2H AND NEEDED. MAYANK RODRÍGUEZ MADE AWARE OF BIPAP PLACEMENT AND O2 CONSUMPTION.
--- NOTE | 2019-11-09 02:37 | NUR ---
Respiratory note: AT BEDSIDE FOR ROUTINE BIPAP CHECK. PT APPEARS TO BE SLEEPING COMFORTABLY. NO CHANGES MADE WILL CONTINUE TO MONITOR.
--- NOTE | 2019-11-09 04:25 | NUR ---
Respiratory note: AT BEDSIDE FOR END OF SHIFT BIPAP CHECK. PT SLEEPING COMFORTABLY. NO CHANGES MADE WILL HAVE DAY SHIFT CONTINUE POC.
[2019-11-09 04:59] VITALS: BP 137/60
[2019-11-09] MEDS: ceFAZolin 1GM/50ML 50 ML IV SCH ×3 (05:24→21:28)
[2019-11-09] MEDS: FUROSEMIDE 100 MG/10ML VIAL IV SCH ×2 (05:25→17:43)
[2019-11-09] MEDS: SODIUM CHLOR 0.9% PF (SALINE LOCK) 10ML VIAL/SYR IV SCH ×3 (05:57→21:41)
[2019-11-09 06:18] LABS: Calcium 8.7 mg/dL (8.5-10.1); Potassium 4.1 mmol/L (3.5-5.1)
[2019-11-09 06:21] LABS: BUN/Creatinine Ratio 21.7
[2019-11-09] MEDS: BUDESONIDE (INHALATION) 0.5 MG/2 ML NEB NEB SCH ×2 (06:23→18:11)
--- NOTE | 2019-11-09 06:43 | NUR ---
Critical Lab Called hospitalist, Dr Sauer and made him aware of patient's critical lab of carbon dioxide. No new orders received. Will continue to monitor patient Q1 and PRN.
[2019-11-09] MEDS: InsuLIN REG 1unit/0.01ml Soln (100units/ml) SC SCH ×5 (07:00→21:35)
[2019-11-09] MEDS: ACCU-CHEK COMFORT CURVE STRIP VI SCH ×4 (07:10→21:32)
[2019-11-09 08:00] VITALS: BP 137/60
--- NOTE | 2019-11-09 08:00 | NUR ---
ASSESSMENT NOTE PT IS ALERT ORIENTED X4, RESTING IN BED IN LOW HOWARD POSITION, ABLE TO SELF REPOSITION NEEDED, PT RE ENCOURAGED TO REPOSITION MORE OFTEN, PT IS VERY OBESE, LARGE SOFT ABDOMEN NOTED, MONTEJO CATHETER TO GRAVITY, PAIN 0/10 AT THIS TIME, CALL LIGHT WITHIN REACH
[2019-11-09] MEDS: FERROUS SULFATE 325 MG TAB PO SCH ×2 (08:29→17:44)
[2019-11-09 09:00] VITALS: BP 114/43
[2019-11-09] MEDS: dilTIAZem 120MG ER CAP PO SCH (09:58)
[2019-11-09] MEDS: CARVEDILOL 3.125 MG TAB PO SCH ×3 (09:58→21:30)
[2019-11-09] MEDS: AMIODARONE HCL 200 MG TAB PO SCH ×2 (09:58→21:41)
[2019-11-09] MEDS: ATORVASTATIN 20 MG TAB PO SCH (09:59)
[2019-11-09] MEDS: DULoxetine HCL 30 MG CAP PO SCH ×2 (09:59→21:40)
[2019-11-09] MEDS: POTASSIUM CHL 20 Meq TABLET PO SCH (09:59)
[2019-11-09] MEDS: lamoTRIgine 100 MG TAB PO SCH (09:59)
[2019-11-09] MEDS: PANTOPRAZOLE 40 MG TAB PO SCH (09:59)
[2019-11-09] MEDS: RIVAROXABAN 20 MG TAB PO SCH (10:00)
[2019-11-09 13:00] VITALS: BP 96/33
--- NOTE | 2019-11-09 13:40 | NUR ---
DR TIDWELL AT BED SIDE FOLLOWING UP ON PT WITH NEW ORDERS
--- NOTE | 2019-11-09 14:00 | NUR ---
BM PT HAS LARGE FORMED BM, IN BSC, KEPT CLEAN AND DRY
[2019-11-09 17:00] VITALS: BP 123/56
[2019-11-09] MEDS: CLINDAMYCIN HCL 150 MG CAP PO SCH (17:44)
--- NOTE | 2019-11-09 18:16 | NUR ---
PT CONTINUE STABLE, NO DISTRESS NOTED, SITTING UP EATING DINNER, CLEAN AND DRY, CALL LIGHT WITHIN REACH
--- NOTE | 2019-11-09 21:02 | NUR ---
Opening Shift Note Assumed care of patient, awake and alert. No S/S of distress/SOB or pain. Instructed on POC and to call for assist PRN, will continue to monitor for changes Q1hr and PRN.
[2019-11-09] MEDS: MIRTAZAPINE 30 MG TAB PO SCH (21:32)
[2019-11-09] MEDS: INSULIN LANTUS (GLARGINE) 1 /0.01ml (100units/ml) SC SCH (21:36)
[2019-11-09] MEDS: PRAMIPEXOLE DIHYDROCHLORIDE MO 0.25 MG TAB PO SCH (21:50)
[2019-11-09] MEDS: TEMAZEPAM 15 MG CAP PO PRN (21:51)
[2019-11-09 22:00] VITALS: BP 126/52
[2019-11-10] MEDS: CLINDAMYCIN HCL 150 MG CAP PO SCH ×4 (00:22→17:32)
[2019-11-10 05:00] VITALS: BP 154/61
[2019-11-10 05:46] LABS: Basophils # (auto) 0 10 ^3/uL (0-0.2); Basophils % (auto) 0.5 % (0.0-2.0); Monocytes # (auto) 0.8 10 ^3/uL (0-1.3)
[2019-11-10 05:49] LABS: Eosinophils # (auto) 0.2 10 ^3/uL (0-0.8); Eosinophils % (auto) 2.6 % (0.0-7.0); Hematocrit 31.7 % (36.0-46.0); Hemoglobin 9.5 g/dL (12.2-16.2); Lymphocytes % (auto) 21.8 % (10.0-50.0); Mean Corpuscular Hemoglobin 25.7 pg (28.0-32.0); Mean Corpuscular Hgb Conc. 30.1 g/dL (32.0-36.0); Mean Corpuscular Volume 85.3 fL (80.0-100.0); Monocytes % (auto) 8.9 % (0.0-12.0); Neutrophils # (auto) 6.2 10 ^3/uL (1.6-8.6); Neutrophils % (auto) 66.2 % (37.0-80.0); Nucleated Red Blood Cells % 0.1 %; Platelet Count (auto) 356 10^3/uL (140-450); Red Blood Cells 3.72 10^6/uL (4.0-5.20); White Blood Cell 9.4 10^3/uL (4.4-10.8)
[2019-11-10 05:57] LABS: Red Cell Distribution Width 23.4 % (11.8-14.3)
[2019-11-10 06:08] LABS: Potassium 4.5 mmol/L (3.5-5.1)
[2019-11-10 06:13] LABS: BUN/Creatinine Ratio 24.5; Calcium 8.7 mg/dL (8.5-10.1)
[2019-11-10] MEDS: ceFAZolin 1GM/50ML 50 ML IV SCH ×3 (06:19→21:39)
[2019-11-10] MEDS: SODIUM CHLOR 0.9% PF (SALINE LOCK) 10ML VIAL/SYR IV SCH ×3 (06:20→21:44)
[2019-11-10] MEDS: FUROSEMIDE 100 MG/10ML VIAL IV SCH ×2 (06:22→17:32)
[2019-11-10] MEDS: BUDESONIDE (INHALATION) 0.5 MG/2 ML NEB NEB SCH ×2 (06:37→18:53)
[2019-11-10] MEDS: ALBUTEROL SULF 2.5 MG/0.5ML(0.5%) NEB SOLN NEB SCH ×3 (06:37→18:53)
[2019-11-10] MEDS: IPRATROPIUM BROM 0.5 MG/2.5ML INH SOL NEB SCH ×4 (06:37→23:21)
[2019-11-10] MEDS: InsuLIN REG 1unit/0.01ml Soln (100units/ml) SC SCH ×5 (07:00→21:50)
[2019-11-10] MEDS: ACCU-CHEK COMFORT CURVE STRIP VI SCH ×4 (07:05→21:56)
--- NOTE | 2019-11-10 07:33 | NUR ---
Received critical lab result from [facility] with CO2: 43. Patient uses CPAP at night, no resp distress noted or reported and seen by RT during the shift for treatment. notified of the lab result. No new order @ this time.
[2019-11-10 08:00] VITALS: BP 154/61
--- NOTE | 2019-11-10 08:00 | NUR ---
ASSESSMENT NOTE PT IS ALERT ORIENTED X4, RESTING IN BED IN LOW HOWARD POSITION, ABLE TO SELF REPOSITION NEEDED, ABLE TO REPOSITION MORE OFTEN, PT IS VERY OBESE, LARGE SOFT ABDOMEN NOTED, MONTEJO CATHETER TO GRAVITY, PAIN 0/10 AT THIS TIME, CALL LIGHT WITHIN REACH
[2019-11-10] MEDS: FERROUS SULFATE 325 MG TAB PO SCH ×2 (08:18→17:31)
[2019-11-10 08:40] VITALS: BP 139/49
[2019-11-10] MEDS: dilTIAZem 120MG ER CAP PO SCH (09:18)
[2019-11-10] MEDS: AMIODARONE HCL 200 MG TAB PO SCH ×2 (09:18→21:44)
[2019-11-10] MEDS: lamoTRIgine 100 MG TAB PO SCH (09:19)
[2019-11-10] MEDS: RIVAROXABAN 20 MG TAB PO SCH (09:19)
[2019-11-10] MEDS: DULoxetine HCL 30 MG CAP PO SCH ×2 (09:19→21:40)
[2019-11-10] MEDS: POTASSIUM CHL 20 Meq TABLET PO SCH (09:19)
[2019-11-10] MEDS: PANTOPRAZOLE 40 MG TAB PO SCH (09:19)
[2019-11-10] MEDS: ATORVASTATIN 20 MG TAB PO SCH (09:20)
--- NOTE | 2019-11-10 10:44 | NUR ---
DR TIDWELL AT BED SIDE FOLLOWING UP ON PT WITH NEW ORDERS
[2019-11-10 12:38] VITALS: BP 143/75
--- NOTE | 2019-11-10 14:00 | NUR ---
BM PT WAS ABLE TO GET OUT OF BED AND USE BSC, ABLE TO STAY CLEAN AND DRY, CONTINUE MONITORING
[2019-11-10 16:22] VITALS: BP 108/64
[2019-11-10] MEDS: CARVEDILOL 3.125 MG TAB PO SCH (17:33)
--- NOTE | 2019-11-10 18:14 | NUR ---
PT CONTINUE STABLE, NO DISTRESS NOTED, CONTINUE MONITORING
[2019-11-10] MEDS: PRAMIPEXOLE DIHYDROCHLORIDE MO 0.25 MG TAB PO SCH (21:40)
[2019-11-10] MEDS: TEMAZEPAM 15 MG CAP PO PRN (21:42)
[2019-11-10] MEDS: MIRTAZAPINE 30 MG TAB PO SCH (21:45)
[2019-11-10] MEDS: INSULIN LANTUS (GLARGINE) 1 /0.01ml (100units/ml) SC SCH (21:55)
[2019-11-10 22:00] VITALS: BP 126/59
[2019-11-11 00:02] VITALS: BP 126/59
[2019-11-11] MEDS: CLINDAMYCIN HCL 150 MG CAP PO SCH ×2 (00:39→05:54)
[2019-11-11] MEDS: IPRATROPIUM BROM 0.5 MG/2.5ML INH SOL NEB SCH ×4 (01:09→18:28)
[2019-11-11] MEDS: ALBUTEROL SULF 2.5 MG/0.5ML(0.5%) NEB SOLN NEB SCH ×5 (01:09→23:21)
[2019-11-11 05:44] VITALS: BP 172/70
[2019-11-11 05:50] LABS: Potassium 3.8 mmol/L (3.5-5.1)
[2019-11-11] MEDS: SODIUM CHLOR 0.9% PF (SALINE LOCK) 10ML VIAL/SYR IV SCH ×3 (05:55→22:15)
[2019-11-11] MEDS: ceFAZolin 1GM/50ML 50 ML IV SCH ×3 (05:55→22:15)
[2019-11-11 05:56] LABS: BUN/Creatinine Ratio 21.2; Calcium 8.2 mg/dL (8.5-10.1)
[2019-11-11] MEDS: BUDESONIDE (INHALATION) 0.5 MG/2 ML NEB NEB SCH ×2 (06:11→18:28)
[2019-11-11] MEDS: FUROSEMIDE 100 MG/10ML VIAL IV SCH ×2 (06:21→17:42)
--- NOTE | 2019-11-11 06:27 | NUR ---
Respiratory note: PATIENT TAKEN OFF BIPAP AT THIS TIME AND PLACED ON 3LPM OXYMIZER. SPO2 MAINTAINS AT 97%, WILL TITRATE FIO2 NEEDED.
[2019-11-11] MEDS: InsuLIN REG 1unit/0.01ml Soln (100units/ml) SC SCH ×4 (06:43→22:19)
[2019-11-11] MEDS: ACCU-CHEK COMFORT CURVE STRIP VI SCH ×4 (06:43→22:20)
[2019-11-11 06:44] LABS: Basophils # (auto) 0 10 ^3/uL (0-0.2); Basophils % (auto) 0.3 % (0.0-2.0); Eosinophils # (auto) 0.3 10 ^3/uL (0-0.8); Hemoglobin 9.4 g/dL (12.2-16.2); Lymphocytes # (auto) 1.6 10 ^3/uL (0.4-5.4); Monocytes # (auto) 0.8 10 ^3/uL (0-1.3); Neutrophils # (auto) 4.4 10 ^3/uL (1.6-8.6); Nucleated Red Blood Cells % 0.1 %; White Blood Cell 7.1 10^3/uL (4.4-10.8)
[2019-11-11 06:46] LABS: Eosinophils % (auto) 4.4 % (0.0-7.0); Hematocrit 30.9 % (36.0-46.0); Lymphocytes % (auto) 22.9 % (10.0-50.0); Mean Corpuscular Hemoglobin 26.2 pg (28.0-32.0); Mean Corpuscular Hgb Conc. 30.6 g/dL (32.0-36.0); Mean Corpuscular Volume 85.6 fL (80.0-100.0); Monocytes % (auto) 10.9 % (0.0-12.0); Neutrophils % (auto) 61.5 % (37.0-80.0); Platelet Count (auto) 320 10^3/uL (140-450); Red Blood Cells 3.61 10^6/uL (4.0-5.20)
[2019-11-11 06:52] LABS: Red Cell Distribution Width 23.3 % (11.8-14.3)
--- NOTE | 2019-11-11 07:53 | NUR ---
Received critical lab result from [facility], with CO2: 44. Patient uses CPAP at night, no resp distress noted or reported and seen by RT during the shift for treatment. notified of the lab result. No new order @ this time.
--- NOTE | 2019-11-11 08:00 | NUR ---
PT RESTING IN BED, NO DISTRESS NOTED. PT REPORTS NO PAIN AT THIS TIME. BED IN LOWEST LOCKED POSITION, SIDE RAILS UP X 2. WILL CONTINUE TO MONITOR.
[2019-11-11 09:00] VITALS: BP 130/98
[2019-11-11] MEDS ORDERED: metOLazone 5 MG TAB PO ONE ×2 (10:15→11:00)
[2019-11-11] MEDS: RIVAROXABAN 20 MG TAB PO SCH (10:41)
[2019-11-11] MEDS: FERROUS SULFATE 325 MG TAB PO SCH ×2 (10:41→17:43)
[2019-11-11] MEDS: AMIODARONE HCL 200 MG TAB PO SCH ×2 (10:41→22:13)
[2019-11-11] MEDS: DULoxetine HCL 30 MG CAP PO SCH ×2 (10:42→22:12)
[2019-11-11] MEDS: CARVEDILOL 3.125 MG TAB PO SCH ×2 (10:42→17:48)
[2019-11-11] MEDS: dilTIAZem 120MG ER CAP PO SCH (10:43)
[2019-11-11] MEDS: lamoTRIgine 100 MG TAB PO SCH (10:44)
[2019-11-11] MEDS: ATORVASTATIN 20 MG TAB PO SCH (10:44)
[2019-11-11] MEDS: POTASSIUM CHL 20 Meq TABLET PO SCH (10:44)
[2019-11-11] MEDS: PANTOPRAZOLE 40 MG TAB PO SCH (10:45)
[2019-11-11 13:00] VITALS: BP 120/68
--- NOTE | 2019-11-11 13:58 | NUR ---
NUTRITION ASSESSMENT NOTES Please refer to link notes of nutrition screen form filed under the intervention section of the plan of care for further details. Est. Energy Needs: 7838-4089 kcal (12-15 kcal/kg BW). Est. Protein Needs: 77-85 gms/day (1.0-1.1 gms/kg Adj.BW). Will continue to monitor pertinent labs and reassess nutrient need prn Addendum: 11/11/19 at [address] Amended: Links added.
[2019-11-11] MEDS ORDERED: IOHEXOL 300 MG/ML 100ML BOTTLE IJ ONE (14:53)
[2019-11-11] MEDS ORDERED: BARIUM SULFATE 98% 340 GM PWDR ONE (14:54)
[2019-11-11] MEDS ORDERED: EZ PAQUE SUSP 12OZ BTL ONE (14:55)
[2019-11-11] MEDS ORDERED: EZ-GAS II GRANULES (RADIOLOGY USE) PO ONE (14:55)
[2019-11-11] MEDS ORDERED: GASTROGRAFIN 120 ML SOL ONE (14:58)
[2019-11-11 16:33] VITALS: BP 116/62
--- NOTE | 2019-11-11 19:57 | NUR ---
Opening Shift Note Assumed care of patient, awake and alert. No S/S of distress/SOB or pain. Instructed on POC and to call for assist PRN, will continue to monitor for changes Q1hr and PRN. bed in low position call light within reach. fall precaution in place.
[2019-11-11 22:00] VITALS: BP 153/63
[2019-11-11] MEDS: PRAMIPEXOLE DIHYDROCHLORIDE MO 0.25 MG TAB PO SCH (22:12)
[2019-11-11] MEDS: MIRTAZAPINE 30 MG TAB PO SCH (22:13)
[2019-11-11] MEDS: TEMAZEPAM 15 MG CAP PO PRN (22:14)
[2019-11-11] MEDS: INSULIN LANTUS (GLARGINE) 1 /0.01ml (100units/ml) SC SCH (22:20)
[2019-11-12] VITALS (7 sets, daily range): BP systolic 121–153; BP diastolic 52–65
[2019-11-12] MEDS: ceFAZolin 1GM/50ML 50 ML IV SCH ×3 (05:30→22:46)
[2019-11-12] MEDS: FUROSEMIDE 100 MG/10ML VIAL IV SCH ×2 (05:30→17:37)
[2019-11-12] MEDS: SODIUM CHLOR 0.9% PF (SALINE LOCK) 10ML VIAL/SYR IV SCH ×3 (05:31→22:47)
[2019-11-12 05:36] LABS: BUN/Creatinine Ratio 17.9; Calcium 8.5 mg/dL (8.5-10.1); Potassium 3.3 mmol/L (3.5-5.1)
[2019-11-12] MEDS: IPRATROPIUM BROM 0.5 MG/2.5ML INH SOL NEB SCH ×3 (06:24→18:56)
[2019-11-12] MEDS: ALBUTEROL SULF 2.5 MG/0.5ML(0.5%) NEB SOLN NEB SCH ×3 (06:24→18:56)
[2019-11-12] MEDS: BUDESONIDE (INHALATION) 0.5 MG/2 ML NEB NEB SCH ×2 (06:24→18:56)
[2019-11-12] MEDS: ACCU-CHEK COMFORT CURVE STRIP VI SCH ×4 (06:29→23:01)
[2019-11-12] MEDS: InsuLIN REG 1unit/0.01ml Soln (100units/ml) SC SCH ×4 (06:29→23:05)
--- NOTE | 2019-11-12 06:37 | NUR ---
0610 NOTIFIED BY RN OF CRITICAL CALLED IN BY LAB OF CO2 OF 47. 0610 PAGED CHARISMA. 0620 NOTIFIED MD NO NEW ORDERS RECEIVED
--- NOTE | 2019-11-12 07:06 | NUR ---
REPORT GIVEN TO DAYSHIFT RN PATIENT DENIES SOB DISTRESS OR PAIN
[2019-11-12] MEDS: ATORVASTATIN 20 MG TAB PO SCH (09:05)
[2019-11-12] MEDS: RIVAROXABAN 20 MG TAB PO SCH (09:06)
[2019-11-12] MEDS: FERROUS SULFATE 325 MG TAB PO SCH ×2 (09:06→17:38)
[2019-11-12] MEDS: metOLazone 5 MG TAB PO SCH (09:06)
[2019-11-12] MEDS: AMIODARONE HCL 200 MG TAB PO SCH ×2 (09:07→22:47)
[2019-11-12] MEDS: CARVEDILOL 3.125 MG TAB PO SCH ×2 (09:07→17:38)
[2019-11-12] MEDS: dilTIAZem 120MG ER CAP PO SCH (09:08)
[2019-11-12] MEDS: lamoTRIgine 100 MG TAB PO SCH (09:08)
[2019-11-12] MEDS: PANTOPRAZOLE 40 MG TAB PO SCH (09:09)
[2019-11-12] MEDS: POTASSIUM CHL 20 Meq TABLET PO SCH (09:09)
[2019-11-12] MEDS: DULoxetine HCL 30 MG CAP PO SCH ×2 (09:09→22:47)
--- NOTE | 2019-11-12 10:27 | NUR ---
SPOKE WITH DR FERNANDEZ AT NURSING STATION, NOTIFIED PT CARBON DIOXIDE LEVEL 42, MD REPORTS TO CALL RESPIRATORY THERAPY AND HAVE THEM TITRATE HER OXYGEN ANGELIA. HE ALSO REPORTS HE WILL PUT IN GI CONSULT FOR DYSPHAGIA. WILL CONTINUE TO MONITOR.
[2019-11-12] MEDS ORDERED: POTASSIUM CHL 20 Meq TABLET PO ONE (10:30)
--- NOTE | 2019-11-12 10:48 | NUR ---
SPOKE WITH RESPIRATORY THERAPY, NOTIFIED THEM PER DR VAZ ORDER, PT O2 IS TO BE TITRATED DOWN. RT AWARE, SHE REPORTS SHE WILL CHANGE PT TO NASAL CANULA.
--- NOTE | 2019-11-12 12:14 | NUR ---
IT PROFESSIONAL REPORTS PT BP IS 153/62, HR 74. REASSESSED BLOOD PRESSURE, BP 123/45, HR 74. Addendum: 11/12/19 at 1217 by LESVIA KILLIAN RN 123/65
--- NOTE | 2019-11-12 12:18 | NUR ---
RT REPORTS THEY CHANGED PT O2 TO 3 L NC, SAME PT WEARS AT HOME, NOTIFIED RT AGAIN, DR JIM AVILES 02 TITRATED DOWN. RT AWARE.
--- NOTE | 2019-11-12 15:52 | NUR ---
PT 02 SAT ON 3L NC IS 93%. PT REPORTS DR CONTRERAS CAME TO SEE HER. PATIENT REPORTS MD TOLD HER SHE WOULD HAVE AN EGD TOMORROW. ORDERS FOR EGD PUT IN FOR TODAY, CALLED DR CONTRERAS'S OFFICE TO CLARIFY DATE OF PROCEDURE, LEFT MESSAGE, AWAITING CALL BACK.
--- NOTE | 2019-11-12 16:02 | NUR ---
DR CONTRERAS CALLED BACKMD REPORTS PT WILL HAVE EGD TOMORROW AND WILL BE NPO AFTER MIDNIGHT TONIGHT.
--- NOTE | 2019-11-12 20:00 | NUR ---
Opening Shift Note Assumed care of patient, awake and alert. No S/S of distress/SOB or pain. Patient is on 3 liters of oxygen via nasal cannula. Respirations even and unlabored. Instructed on POC and to call for assist PRN, will continue to monitor for changes Q1hr and PRN.
--- NOTE | 2019-11-12 21:30 | NUR ---
Heart rate reassessed and is 76. Patient asymptomatic.
[2019-11-12] MEDS: TEMAZEPAM 15 MG CAP PO PRN (22:48)
[2019-11-12] MEDS: PRAMIPEXOLE DIHYDROCHLORIDE MO 0.25 MG TAB PO SCH (22:48)
[2019-11-12] MEDS: MIRTAZAPINE 30 MG TAB PO SCH (22:48)
[2019-11-12] MEDS: INSULIN LANTUS (GLARGINE) 1 /0.01ml (100units/ml) SC SCH (23:05)
[2019-11-13] VITALS (7 sets, daily range): BP systolic 120–130; BP diastolic 47–63
[2019-11-13] MEDS: ALBUTEROL SULF 2.5 MG/0.5ML(0.5%) NEB SOLN NEB SCH ×4 (00:10→18:27)
[2019-11-13] MEDS: IPRATROPIUM BROM 0.5 MG/2.5ML INH SOL NEB SCH ×4 (00:10→18:27)
--- NOTE | 2019-11-13 00:10 | NUR ---
Respiratory note: PT PLACED ON BIPAP B6, BIPAP CONNECTED TO RED OUTLET AND O2 SOURCE ALARMS ARE SET AND AUDIBLE. PT ON SIZE (M) MASK. NO BREAKDOWN NOTED PRIOR TO PLACEMENT. BS ARE DIMINISHED T/O MED NEB TX GIVEN INLINE WITHOUT ADVERSE REACTION NOTED. RT NAME AND PAGER ASSIGNMENT WRITTEN ON PTS ROOM BOARD. WILL CONTINUE TO MONITOR Q2H AND NEEDED.
--- NOTE | 2019-11-13 00:24 | NUR ---
Midline dressing changed using sterile technique due to dressing coming off of patient. Patient tolerated well.
[2019-11-13 05:36] LABS: INR 1.01 (0.9-1.15); Partial Thromboplastin Time 25.4 sec (23.64-32.05)
[2019-11-13] MEDS: ceFAZolin 1GM/50ML 50 ML IV SCH (05:56)
[2019-11-13] MEDS: SODIUM CHLOR 0.9% PF (SALINE LOCK) 10ML VIAL/SYR IV SCH ×3 (05:57→22:00)
--- NOTE | 2019-11-13 06:18 | NUR ---
Gibbons care done using Gibbons care wipes.
[2019-11-13] MEDS: FUROSEMIDE 100 MG/10ML VIAL IV SCH ×2 (06:21→17:54)
[2019-11-13] MEDS: ACCU-CHEK COMFORT CURVE STRIP VI SCH ×4 (06:21→22:18)
[2019-11-13] MEDS: InsuLIN REG 1unit/0.01ml Soln (100units/ml) SC SCH ×4 (06:21→22:20)
[2019-11-13] MEDS: BUDESONIDE (INHALATION) 0.5 MG/2 ML NEB NEB SCH ×2 (06:30→18:27)
--- NOTE | 2019-11-13 06:50 | NUR ---
Patient titrated down from 3 liters of oxygen via nasal cannula to 2.5 liters of oxygen via nasal cannula. Pulse oximeter reading on 2.5 liters of oxygen via nasal cannula is 96%.
--- NOTE | 2019-11-13 07:00 | NUR ---
CLOSING NOTE No S/S of distress/SOB or pain. Patient is on 2.5 liters of oxygen via nasal cannula. Respirations even and unlabored.
--- NOTE | 2019-11-13 07:35 | NUR ---
Opening Shift Note Assumed care of patient, awake and alert. No S/S of distress, reports SOB with activity, denies pain. Npo for procedure. Instructed on POC and to call for assist PRN, will continue to monitor for changes Q1hr and PRN.
[2019-11-13] MEDS: CARVEDILOL 3.125 MG TAB PO SCH ×2 (08:00→17:55)
[2019-11-13] MEDS ORDERED: NALOXONE HCL 0.4 MG/ML VIAL ONE (09:59)
[2019-11-13] MEDS ORDERED: FLUMAZENIL 0.1 MG/ML INJ 10ML MDV IV ONE (09:59)
[2019-11-13] MEDS ORDERED: SODIUM CHLORIDE LOCK 10 ML ONE (10:00)
[2019-11-13] MEDS: AMIODARONE HCL 200 MG TAB PO SCH ×2 (10:00→22:01)
[2019-11-13] MEDS ORDERED: diphenhdrAMINE HCL 50 MG/1 ML VL ONE (10:00)
[2019-11-13] MEDS ORDERED: LIDOCAINE VISCOUS 2% 15ML UD ONE (10:00)
--- NOTE | 2019-11-13 12:30 | NUR ---
Patient taken to pre op, vs stable, denies pain or sob.
[2019-11-13] MEDS: fentaNYL CITRATE 100 MCG/2 ML VL ONE ×3 (12:49→13:53)
[2019-11-13] MEDS: MIDAZOLAM HCL 5 MG/ML-1ML VIAL ONE ×2 (12:49→13:51)
--- NOTE | 2019-11-13 14:57 | NUR ---
Authorization request sent to [facility] for FWW from [facility].
--- NOTE | 2019-11-13 15:16 | NUR ---
assessment re: ss consult Patient is a 59 year old female who is alert and oriented. Patients cognitive abilities are intact. Prior to admission patient lived home with her son and functioned with assistance. Per patient she will return home to her prior living arrangements post discharge and family will transport her home. Patient informed me her son helps her with cooking and laundry. Patients PCP is Dr Cuenca. Patient informed me she feels safe returning home on discharge. Patient has 02, bipap, wheelchair, and bedside commode for home use. I informed patient she has a right to speak to a social group worker regarding all care. I informed patient she has a right to participate in any and all discharge planning. Patient has a POA and advanced directive. Patient verbalized understanding and agreed to discharge plan home. Addendum: 11/13/19 at 1518 by Candi SWEENEY Amended: Links added.
[2019-11-13] MEDS: FERROUS SULFATE 325 MG TAB PO SCH ×2 (15:30→17:54)
[2019-11-13] MEDS: dilTIAZem 120MG ER CAP PO SCH (15:31)
[2019-11-13] MEDS: POTASSIUM CHL 20 Meq TABLET PO SCH (15:31)
[2019-11-13] MEDS: DULoxetine HCL 30 MG CAP PO SCH ×2 (15:31→22:02)
[2019-11-13] MEDS: PANTOPRAZOLE 40 MG TAB PO SCH (15:32)
[2019-11-13] MEDS: CEPHALEXIN 250 MG CAP PO SCH ×2 (15:32→22:02)
[2019-11-13] MEDS: lamoTRIgine 100 MG TAB PO SCH (15:32)
[2019-11-13] MEDS: ATORVASTATIN 20 MG TAB PO SCH (15:32)
[2019-11-13] MEDS: metOLazone 5 MG TAB PO SCH (15:33)
[2019-11-13] MEDS: SUCRALFATE 1 GM/10 ML ORAL SUSP PO SCH ×2 (15:33→22:00)
--- NOTE | 2019-11-13 16:36 | NUR ---
D/C planning Per SS consult for walker. Faxed clinical information to [employer] requesting for walker to be deliver to bedside. DARÍO Heath will be requesting authorization for [employer]. Placed called to [employer] Ph:) no one answer. Will follow up tomorrow.
[2019-11-13] MEDS ORDERED: NYSTATIN (MOUTH-THROAT) 500,000 UNITS/5 ML SUSP MT SCH (18:00)
--- NOTE | 2019-11-13 20:05 | NUR ---
Opening Shift Note Assumed care of patient, awake and alert. No S/S of distress/SOB or pain. Patient is on 2.5 liters of oxygen via nasal cannula. Respirations even and unlabored. Instructed on POC and to call for assist PRN, will continue to monitor for changes Q1hr and PRN.
[2019-11-13] MEDS: NYSTATIN (MOUTH-THROAT) 500,000 UNITS/5 ML SUSP MT SCH (22:00)
[2019-11-13] MEDS: PRAMIPEXOLE DIHYDROCHLORIDE MO 0.25 MG TAB PO SCH (22:02)
[2019-11-13] MEDS: MIRTAZAPINE 30 MG TAB PO SCH (22:02)
[2019-11-13] MEDS: INSULIN LANTUS (GLARGINE) 1 /0.01ml (100units/ml) SC SCH (22:19)
[2019-11-14] MEDS: ALBUTEROL SULF 2.5 MG/0.5ML(0.5%) NEB SOLN NEB SCH ×5 (00:16→23:37)
[2019-11-14] MEDS: IPRATROPIUM BROM 0.5 MG/2.5ML INH SOL NEB SCH ×5 (00:16→23:38)
[2019-11-14 05:00] VITALS: BP 136/63
[2019-11-14 05:07] LABS: Basophils # (auto) 0 10 ^3/uL (0-0.2); Eosinophils # (auto) 0.3 10 ^3/uL (0-0.8); Nucleated Red Blood Cells % 0.1 %; White Blood Cell 6.9 10^3/uL (4.4-10.8)
[2019-11-14 05:09] LABS: Basophils % (auto) 0.6 % (0.0-2.0); Eosinophils % (auto) 4.7 % (0.0-7.0); Hemoglobin 10.3 g/dL (12.2-16.2); Lymphocytes # (auto) 1.4 10 ^3/uL (0.4-5.4); Lymphocytes % (auto) 20.9 % (10.0-50.0); Mean Corpuscular Hemoglobin 26.3 pg (28.0-32.0); Mean Corpuscular Hgb Conc. 31.1 g/dL (32.0-36.0); Mean Corpuscular Volume 84.5 fL (80.0-100.0); Monocytes % (auto) 14.1 % (0.0-12.0); Neutrophils # (auto) 4.1 10 ^3/uL (1.6-8.6); Neutrophils % (auto) 59.7 % (37.0-80.0); Platelet Count (auto) 381 10^3/uL (140-450)
[2019-11-14 05:29] LABS: BUN/Creatinine Ratio 15.2; Calcium 9.2 mg/dL (8.5-10.1); Potassium 3.2 mmol/L (3.5-5.1)
--- NOTE | 2019-11-14 05:31 | NUR ---
Critical lab value Maty from laboratory called to notify this RN of a critical CO2 level of 44.
--- NOTE | 2019-11-14 05:33 | NUR ---
Critical lab value Hospitalist paged regarding critical CO2 level of 44. Awaiting callback at this time. Patient asymptomatic.
--- NOTE | 2019-11-14 06:04 | NUR ---
Critical lab value LEIGHTON Elaine, called back regarding critical CO2 level of 44. No new orders received at this time.
[2019-11-14] MEDS: CEPHALEXIN 250 MG CAP PO SCH (06:18)
[2019-11-14] MEDS: NYSTATIN (MOUTH-THROAT) 500,000 UNITS/5 ML SUSP MT SCH ×4 (06:18→21:35)
[2019-11-14] MEDS: SODIUM CHLOR 0.9% PF (SALINE LOCK) 10ML VIAL/SYR IV SCH ×3 (06:18→21:34)
[2019-11-14] MEDS: FUROSEMIDE 100 MG/10ML VIAL IV SCH ×2 (06:19→17:24)
[2019-11-14] MEDS: SUCRALFATE 1 GM/10 ML ORAL SUSP PO SCH ×4 (06:19→21:35)
--- NOTE | 2019-11-14 06:30 | NUR ---
Gibbons care done using Gibbons wipes.
[2019-11-14] MEDS: ACCU-CHEK COMFORT CURVE STRIP VI SCH ×4 (06:37→21:40)
[2019-11-14] MEDS: InsuLIN REG 1unit/0.01ml Soln (100units/ml) SC SCH ×4 (06:38→21:40)
--- NOTE | 2019-11-14 07:00 | NUR ---
CLOSING NOTE No S/S of distress/SOB or pain. Patient is on 2.5 liters of oxygen via nasal cannula. Respirations even and unlabored.
[2019-11-14] MEDS: BUDESONIDE (INHALATION) 0.5 MG/2 ML NEB NEB SCH ×2 (07:20→18:20)
--- NOTE | 2019-11-14 07:25 | NUR ---
Opening Shift Note Assumed care of patient, awake and alert. No S/S of distress, rt at bedside, pt reports feeling well but continues to have sob with activity. Denies pain. Instructed on POC and to call for assist PRN, will continue to monitor for changes Q1hr and PRN.
[2019-11-14 09:03] VITALS: BP 105/74
[2019-11-14] MEDS ORDERED: POTASSIUM CHL 20 Meq TABLET PO ONE (09:45)
--- NOTE | 2019-11-14 10:24 | NUR ---
D/C Planning Received a follow called from Alexander with [facility] [employer] advising me he will deliver walker to front lobby between 13:00-15:00. Informed MAYANK Gonsalez.
[2019-11-14] MEDS: CARVEDILOL 3.125 MG TAB PO SCH ×2 (10:55→18:09)
[2019-11-14] MEDS: AMIODARONE HCL 200 MG TAB PO SCH ×2 (10:56→21:35)
[2019-11-14] MEDS: DULoxetine HCL 30 MG CAP PO SCH ×2 (10:56→21:36)
[2019-11-14] MEDS: lamoTRIgine 100 MG TAB PO SCH (10:56)
[2019-11-14] MEDS: dilTIAZem 120MG ER CAP PO SCH (10:56)
[2019-11-14] MEDS: metOLazone 5 MG TAB PO SCH (10:57)
[2019-11-14] MEDS: ATORVASTATIN 20 MG TAB PO SCH (10:57)
[2019-11-14] MEDS: PANTOPRAZOLE 40 MG TAB PO SCH (10:57)
[2019-11-14] MEDS: POTASSIUM CHL 20 Meq TABLET PO SCH (10:58)
[2019-11-14] MEDS: FLUCONAZOLE 100 MG TAB PO SCH (12:38)
[2019-11-14 13:00] VITALS: BP 122/48
[2019-11-14 16:23] VITALS: BP 120/46
--- NOTE | 2019-11-14 19:35 | NUR ---
ASSUMED CARE, PT. AWAKE, NO C/O PAIN, NOT IN DISTRESS.
[2019-11-14 21:34] VITALS: BP 117/53
[2019-11-14] MEDS: PRAMIPEXOLE DIHYDROCHLORIDE MO 0.25 MG TAB PO SCH (21:37)
[2019-11-14] MEDS: MIRTAZAPINE 30 MG TAB PO SCH (21:37)
[2019-11-14] MEDS: INSULIN LANTUS (GLARGINE) 1 /0.01ml (100units/ml) SC SCH (21:40)
[2019-11-14] MEDS: TEMAZEPAM 15 MG CAP PO PRN (21:49)
--- NOTE | 2019-11-14 23:38 | NUR ---
Respiratory note: PT PLACED ON BIPAP B6, BIPAP CONNECTED TO RED OUTLET AND O2 SOURCE ALARMS ARE SET AND AUDIBLE. PT ON SIZE (M) MASK. NO BREAKDOWN NOTED PRIOR TO PLACEMENT. MED NEB TX GIVEN INLINE WITHOUT ADVERSE REACTION NOTED. RT NAME AND PAGER ASSIGNMENT WRITTEN ON PTS ROOM BOARD. WILL HAVE ASSIGNED RT STEWART, CONTINUE TO MONITOR BIPAP CHECKS Q2H AND NEEDED.
[2019-11-15 04:27] VITALS: BP 109/48
[2019-11-15] MEDS: FUROSEMIDE 100 MG/10ML VIAL IV SCH (05:35)
[2019-11-15] MEDS: SODIUM CHLOR 0.9% PF (SALINE LOCK) 10ML VIAL/SYR IV SCH (05:36)
[2019-11-15] MEDS: NYSTATIN (MOUTH-THROAT) 500,000 UNITS/5 ML SUSP MT SCH ×2 (05:36→12:15)
[2019-11-15] MEDS: SUCRALFATE 1 GM/10 ML ORAL SUSP PO SCH ×2 (06:06→12:15)
[2019-11-15] MEDS: InsuLIN REG 1unit/0.01ml Soln (100units/ml) SC SCH ×2 (06:10→12:17)
[2019-11-15] MEDS: ACCU-CHEK COMFORT CURVE STRIP VI SCH ×2 (06:10→12:03)
[2019-11-15] MEDS: ALBUTEROL SULF 2.5 MG/0.5ML(0.5%) NEB SOLN NEB SCH ×2 (06:59→11:52)
[2019-11-15] MEDS: BUDESONIDE (INHALATION) 0.5 MG/2 ML NEB NEB SCH (07:00)
[2019-11-15] MEDS: IPRATROPIUM BROM 0.5 MG/2.5ML INH SOL NEB SCH ×2 (07:00→11:52)
--- NOTE | 2019-11-15 07:05 | NUR ---
OPENING SHIFT NOTE Assumed care of patient from shift superintendent RN. Patient is alert and oriented x4, no signs of distress noted. Patient is on oxygen at 2.5 L via NC, saturation 93%. Gibbons noted, draining clear yellow urine to gravity, no tubing kinks or loops noted. Patient was updated on the plan of care and verbalized understanding. Bed is locked, in the lowest position, side rails up x2 and call light is in reach. Patient was encouraged to call for assistance as needed.
[2019-11-15] MEDS: CARVEDILOL 3.125 MG TAB PO SCH (08:12)
[2019-11-15 09:00] VITALS: BP 125/73
[2019-11-15] MEDS: lamoTRIgine 100 MG TAB PO SCH (10:13)
[2019-11-15] MEDS: ATORVASTATIN 20 MG TAB PO SCH (10:13)
[2019-11-15] MEDS: FLUCONAZOLE 100 MG TAB PO SCH (10:14)
[2019-11-15] MEDS: DULoxetine HCL 30 MG CAP PO SCH (10:14)
[2019-11-15] MEDS: PANTOPRAZOLE 40 MG TAB PO SCH (10:14)
[2019-11-15] MEDS: dilTIAZem 120MG ER CAP PO SCH (10:14)
[2019-11-15] MEDS: POTASSIUM CHL 20 Meq TABLET PO SCH (10:14)
[2019-11-15] MEDS: AMIODARONE HCL 200 MG TAB PO SCH (10:15)
[2019-11-15] MEDS: metOLazone 5 MG TAB PO SCH (10:18)
[2019-11-15 13:00] VITALS: BP 93/65
[2019-11-15 13:03] VITALS: BP 93/65
--- NOTE | 2019-11-15 13:40 | NUR ---
DISCHARGE Discharge instructions given as ordered. Encourage to follow up with PMD as instructed. All questions and concerns addressed. Patient verbalized understanding. Medication reconciliation form completed and copy given to patient. midline removed with catheter intact, pressure dressing applied, weber catheter removed. Telemetry unit returned to ICU. Patient taken to vehicle via wheelchair with all personal belongings, accompanied by staff. No distress noted at time of departure.
[2019-12-29] MEDS ORDERED: POTA10TA32 PO (01:03)
[2019-12-29] MEDS ORDERED: DICL1GEL50 TD (01:03)
[2020-01-03] MEDS ORDERED: POTA10TA32 PO (13:21)
== END 2019-11-15 13:40 | disposition home or self-care (01) | DRG 133 ==
LOC: EDBD 09:40 → ER 09:40 → TELE 09:41 → TELE-CENTR 22:52
PROVIDERS: ADMIT Internal Medicine; ATTEND Internal Medicine
PROC: 5A09357 Assistance with Respiratory Ventilation, Less than 24 Consecutive Hours, Continuous Positive Airway Pressure (ICD-10-PCS; 2019-11-07)
PROC: 5A09357 Assistance with Respiratory Ventilation, Less than 24 Consecutive Hours, Continuous Positive Airway Pressure (ICD-10-PCS; 2019-11-08)
PROC: 5A09357 Assistance with Respiratory Ventilation, Less than 24 Consecutive Hours, Continuous Positive Airway Pressure (ICD-10-PCS; 2019-11-09)
PROC: 5A09357 Assistance with Respiratory Ventilation, Less than 24 Consecutive Hours, Continuous Positive Airway Pressure (ICD-10-PCS; 2019-11-10)
PROC: 5A09357 Assistance with Respiratory Ventilation, Less than 24 Consecutive Hours, Continuous Positive Airway Pressure (ICD-10-PCS; 2019-11-11)
PROC: 5A09357 Assistance with Respiratory Ventilation, Less than 24 Consecutive Hours, Continuous Positive Airway Pressure (ICD-10-PCS; 2019-11-12)
PROC: 0DB88ZX Excision of Small Intestine, Via Natural or Artificial Opening Endoscopic, Diagnostic (ICD-10-PCS; 2019-11-13)
PROC: 0DB68ZX Excision of Stomach, Via Natural or Artificial Opening Endoscopic, Diagnostic (ICD-10-PCS; 2019-11-13)
PROC: 5A09357 Assistance with Respiratory Ventilation, Less than 24 Consecutive Hours, Continuous Positive Airway Pressure (ICD-10-PCS; 2019-11-13)
PROC: 0DB58ZX Excision of Esophagus, Via Natural or Artificial Opening Endoscopic, Diagnostic (ICD-10-PCS; principal; 2019-11-13 12:45)
PROC: 5A09357 Assistance with Respiratory Ventilation, Less than 24 Consecutive Hours, Continuous Positive Airway Pressure (ICD-10-PCS; 2019-11-14)
PROC: 5A09357 Assistance with Respiratory Ventilation, Less than 24 Consecutive Hours, Continuous Positive Airway Pressure (ICD-10-PCS; 2019-11-15)
DX: J96.21 Acute and chronic respiratory failure with hypoxia (principal); I50.43 Acute on chronic combined systolic (congestive) and diastolic (congestive) heart failure; B37.81 Candidal esophagitis; D68.69 Other thrombophilia; E11.65 Type 2 diabetes mellitus with hyperglycemia; E66.2 Morbid (severe) obesity with alveolar hypoventilation; I48.91 Unspecified atrial fibrillation; J44.1 Chronic obstructive pulmonary disease with (acute) exacerbation; K29.70 Gastritis, unspecified, without bleeding; K22.10 Ulcer of esophagus without bleeding; L03.115 Cellulitis of right lower limb; L03.116 Cellulitis of left lower limb; Z68.44 Body mass index [BMI] 60.0-69.9, adult; E78.5 Hyperlipidemia, unspecified; F32.9 Major depressive disorder, single episode, unspecified; J96.22 Acute and chronic respiratory failure with hypercapnia; K21.9 Gastro-esophageal reflux disease without esophagitis; Z90.49 Acquired absence of other specified parts of digestive tract; Z88.2 Allergy status to sulfonamides
CPT/HCPCS: 36415; 36600; 43239; 71045; 74220; 80048; 80053; 80307; 81001; 82550; 82728; 82805; 82962; 83036; 83605; 83615; 83880; 84484; 85025; 85379; 85610; 85730; 86850; 86900; 86901; 87040; 87070; 87081; 87086; 87205; 87804; 87880; 93005; 93970; 94640; 94660; 96365; 96367; 96375; 97116; 97163; 97530; G0378; J0690; J0696; J1815; J1956; J2250

== ENCOUNTER 2019-12-06 14:54 | Inpatient (IN) | payer MEDICAID ==
[~2019-12-06] VITALS: Ht 157.5 cm; Wt 147.3 kg
[~2019-12-06 14:54] MED LIST changes: +CHOL200039 PO; +DIGO0.12 PO; +DILT120C36 PO; -DILT60TA27 PO; -INSLANTI SC; +INSU1INJ26 SC; -POTA10TA51 PO; +POTA10TA79 PO
[2019-12-06] MEDS ORDERED: IPRATROPIUM BROM 0.5 MG/2.5ML INH SOL HHN ONE (15:00)
[2019-12-06] MEDS ORDERED: ALBUTEROL SULF 2.5 MG/0.5ML(0.5%) NEB SOLN HHN ONE (15:00)
[2019-12-06] MEDS ORDERED: methylPREDNISolone SOD SUCC 125 MG/2 ML VL IV ONE (15:00)
[2019-12-06 15:21] LABS: Eosinophils # (auto) 0.3 10 ^3/uL (0-0.8); Monocytes # (auto) 0.8 10 ^3/uL (0-1.3); White Blood Cell 9.2 10^3/uL (4.4-10.8)
[2019-12-06 15:22] LABS: Basophils # (auto) 0.1 10 ^3/uL (0-0.2); Basophils % (auto) 0.5 % (0.0-2.0); Eosinophils % (auto) 3.7 % (0.0-7.0); Hematocrit 33.4 % (36.0-46.0); Hemoglobin 10.2 g/dL (12.2-16.2); Lymphocytes # (auto) 1.9 10 ^3/uL (0.4-5.4); Lymphocytes % (auto) 20.7 % (10.0-50.0); Mean Corpuscular Hemoglobin 27.9 pg (28.0-32.0); Mean Corpuscular Hgb Conc. 30.4 g/dL (32.0-36.0); Mean Corpuscular Volume 91.8 fL (80.0-100.0); Monocytes % (auto) 9.1 % (0.0-12.0); Neutrophils # (auto) 6.1 10 ^3/uL (1.6-8.6); Nucleated Red Blood Cells % 0.1 %; Platelet Count (auto) 335 10^3/uL (140-450); Red Blood Cells 3.64 10^6/uL (4.0-5.20)
[2019-12-06 15:23] LABS: Red Cell Distribution Width 24.1 % (11.8-14.3)
[2019-12-06 15:39] LABS: Albumin 3.4 g/dL (3.4-5.0); Anion Gap 7 (5-15); Blood Urea Nitrogen 15 mg/dL (7-18); Calcium 9.2 mg/dL (8.5-10.1); Carbon Dioxide 32 mmol/L (21-32); Chloride 100 mmol/L (98-107); Glucose 236 mg/dL (74-106); Magnesium 2.1 mg/dL (1.6-2.6); Potassium 4.2 mmol/L (3.5-5.1); Sodium 139 mmol/L (136-145)
[2019-12-06 15:45] LABS: Alanine Aminotransferase 21 U/L (13-56); Alkaline Phosphatase 60 U/L (45-117); Aspartate Aminotransferase 13 U/L (15-37); BUN/Creatinine Ratio 13.3; Bilirubin, Total 0.2 mg/dL (0.2-1.0); GFR African American 63 mL/min; GFR Non-African American 52 mL/min; Total Protein 7.3 g/dL (6.4-8.2)
[2019-12-06 15:48] LABS: Lactic Acid w/Reflex 3.2 mmol/L (0.4-2.0)
[2019-12-06] MEDS ORDERED: DEXTROSE (50%) 50ML SYRG IV PRN (16:00)
[2019-12-06] MEDS ORDERED: NITROGLYCERIN 0.4 MG SL TAB SL PRN (16:00)
[2019-12-06] MEDS ORDERED: ACETAMINOPHEN 500 MG TAB PO PRN (16:00)
[2019-12-06] MEDS ORDERED: MORPHINE SULF INJ 2 MG/ML SYRINGE 1ML IV PRN (16:00)
[2019-12-06] MEDS ORDERED: LACTULOSE 20Gm/30ML SOLN PO PRN (16:00)
[2019-12-06] MEDS ORDERED: ALBUTEROL SULF 2.5 MG/0.5ML(0.5%) NEB SOLN NEB PRN (16:00)
[2019-12-06] MEDS ORDERED: levoFLOXacin 500MG 100 ML IV ONE ×2 (16:11→17:00)
[2019-12-06] MEDS: ACCU-CHEK COMFORT CURVE STRIP VI SCH ×2 (16:30→22:24)
[2019-12-06] MEDS: InsuLIN REG 1unit/0.01ml Soln (100units/ml) SC SCH ×2 (16:32→22:22)
[2019-12-06 16:34] LABS: Urine Bacteria NONE SEEN /hpf (None Seen); Urine Blood TRACE /uL (Negative); Urine Hyaline Cast MOD /lpf (0 - 2); Urine Mucus FEW (None Seen); Urine Specific Gravity 1.028 (1.001-1.035); Urine WBC 2 /hpf (0 - 5)
[2019-12-06] MEDS ORDERED: FUROSEMIDE 20 MG/2 ML VIAL ONE ×2 (16:34→16:36)
[2019-12-06] MEDS: FUROSEMIDE 40 MG/4 ML VIAL IV SCH (16:37)
[2019-12-06 16:42] LABS: Alcohol, Urine < 3.0 mg/dL (0-5); Amphetamine Screen, Urine NEGATIVE (NEGATIVE); Barbiturate Scree,Urine NEGATIVE (NEGATIVE); Benzodiazephine Screen, Urine NEGATIVE (NEGATIVE); Cannabinoid Screen, Urine NEGATIVE (NEGATIVE); Cocaine Screen, Urine NEGATIVE (NEGATIVE); Opiate Scree,Urine NEGATIVE (NEGATIVE); Phencyclidine Screen, Urine NEGATIVE (NEGATIVE)
[2019-12-06] MEDS ORDERED: CLINDAMYCIN 600MG IV 50 ML IV ONE (16:45)
[2019-12-06] MEDS: methylPREDNISolone SOD SUCC 40 MG/ML VL IV SCH ×2 (17:06→23:55)
[2019-12-06] MEDS: FERROUS SULFATE 325 MG TAB PO SCH (17:18)
[2019-12-06 17:45] VITALS: BP 126/54
[2019-12-06] MEDS: IPRATROPIUM BROM 0.5 MG/2.5ML INH SOL NEB SCH (18:15)
[2019-12-06] MEDS: ALBUTEROL SULF 2.5 MG/0.5ML(0.5%) NEB SOLN NEB SCH (18:16)
[2019-12-06 20:00] VITALS: BP 133/48
[2019-12-06 21:59] VITALS: BP 111/57
[2019-12-06] MEDS: BUDESONIDE (INHALATION) 0.5 MG/2 ML NEB NEB SCH (21:59)
[2019-12-06] MEDS ORDERED: FUROSEMIDE 40 MG/4 ML VIAL IV SCH (22:00)
[2019-12-06] MEDS: ROPINIROLE HYDROCHLORIDE PO SCH (22:00)
[2019-12-06] MEDS: CARVEDILOL 3.125 MG TAB PO SCH (22:18)
[2019-12-06] MEDS: DULoxetine HCL 30 MG CAP PO SCH (22:19)
[2019-12-06] MEDS: APIXABAN 5 MG TAB PO SCH (22:19)
[2019-12-06] MEDS: ATORVASTATIN 20 MG TAB PO SCH (22:19)
[2019-12-06] MEDS: MIRTAZAPINE 30 MG TAB PO SCH (22:20)
[2019-12-06] MEDS: lamoTRIgine 100 MG TAB PO SCH (22:21)
[2019-12-06] MEDS: CLINDAMYCIN 600MG IV 50 ML IV SCH (22:22)
[2019-12-07] VITALS (12 sets, daily range): BP systolic 98–144; BP diastolic 33–98
[2019-12-07] MEDS: ALBUTEROL SULF 2.5 MG/0.5ML(0.5%) NEB SOLN NEB SCH ×4 (00:10→20:18)
[2019-12-07] MEDS: IPRATROPIUM BROM 0.5 MG/2.5ML INH SOL NEB SCH ×4 (00:11→20:18)
[2019-12-07] MEDS ORDERED: FUROSEMIDE INJECTION 10 ML ONE (05:09)
[2019-12-07] MEDS: CLINDAMYCIN 600MG IV 50 ML IV SCH ×3 (05:51→21:05)
[2019-12-07] MEDS: methylPREDNISolone SOD SUCC 40 MG/ML VL IV SCH ×3 (05:52→19:03)
[2019-12-07] MEDS: ROPINIROLE HYDROCHLORIDE PO SCH ×3 (05:52→21:06)
[2019-12-07] MEDS: ACCU-CHEK COMFORT CURVE STRIP VI SCH ×4 (05:52→21:16)
[2019-12-07] MEDS: FUROSEMIDE 40 MG/4 ML VIAL IV SCH ×2 (06:00→18:00)
[2019-12-07] MEDS: BUDESONIDE (INHALATION) 0.5 MG/2 ML NEB NEB SCH ×2 (06:02→20:18)
[2019-12-07] MEDS: InsuLIN REG 1unit/0.01ml Soln (100units/ml) SC SCH ×2 (06:33→18:58)
[2019-12-07] MEDS: levoFLOXacin 500MG 100 ML IV SCH (09:44)
[2019-12-07] MEDS: dilTIAZem 120MG ER CAP PO SCH (09:45)
[2019-12-07] MEDS: FERROUS SULFATE 325 MG TAB PO SCH ×2 (09:45→19:03)
[2019-12-07] MEDS: ASPirin-EC 81 mg tab PO SCH (09:45)
[2019-12-07] MEDS: APIXABAN 5 MG TAB PO SCH ×2 (09:46→21:05)
[2019-12-07] MEDS: DULoxetine HCL 30 MG CAP PO SCH ×2 (09:46→21:04)
[2019-12-07] MEDS: DIGOXIN 0.125 MG TAB PO SCH (09:46)
[2019-12-07] MEDS: AMIODARONE HCL 200 MG TAB PO SCH (09:47)
[2019-12-07] MEDS: CARVEDILOL 3.125 MG TAB PO SCH ×3 (09:47→21:05)
[2019-12-07] MEDS: PANTOPRAZOLE 40 MG TAB PO SCH (09:50)
[2019-12-07] MEDS ORDERED: POTASSIUM CHL 20 Meq TABLET PO SCH (10:00)
[2019-12-07] MEDS ORDERED: SPIRONOLACTONE 25 MG TAB PO ONE (11:15)
[2019-12-07] MEDS ORDERED: InsuLIN REG 1unit/0.01ml Soln (100units/ml) ONE (13:09)
[2019-12-07] MEDS ORDERED: DEXTROSE (50%) 50ML SYRG IV PRN (13:15)
[2019-12-07] MEDS ORDERED: InsuLIN REG 1unit/0.01ml Soln (100units/ml) SC SCH ×2 (17:00→22:00)
[2019-12-07] MEDS: INSULIN 70/30 1unit/0.01ml Susp (100units/ml) SC SCH (18:59)
[2019-12-07] MEDS: SPIRONOLACTONE 25 MG TAB PO SCH (19:03)
[2019-12-07] MEDS: ATORVASTATIN 20 MG TAB PO SCH (21:05)
[2019-12-07] MEDS: lamoTRIgine 100 MG TAB PO SCH (21:10)
[2019-12-07] MEDS: MIRTAZAPINE 30 MG TAB PO SCH (21:11)
[2019-12-07] MEDS: traMADol HCL 50 MG TAB PO PRN (21:13)
[2019-12-08] VITALS (10 sets, daily range): BP systolic 104–135; BP diastolic 44–70
[2019-12-08] MEDS: methylPREDNISolone SOD SUCC 40 MG/ML VL IV SCH ×5 (00:18→23:55)
[2019-12-08] MEDS: IPRATROPIUM BROM 0.5 MG/2.5ML INH SOL NEB SCH ×5 (00:48→23:57)
[2019-12-08] MEDS: ALBUTEROL SULF 2.5 MG/0.5ML(0.5%) NEB SOLN NEB SCH ×5 (00:48→23:58)
[2019-12-08 04:43] LABS: INR 1.47 (0.9-1.15)
[2019-12-08] MEDS: ROPINIROLE HYDROCHLORIDE PO SCH ×3 (04:53→22:00)
[2019-12-08] MEDS: ACCU-CHEK COMFORT CURVE STRIP VI SCH ×4 (04:53→22:00)
[2019-12-08] MEDS: CLINDAMYCIN 600MG IV 50 ML IV SCH ×3 (04:57→22:06)
[2019-12-08] MEDS: SPIRONOLACTONE 25 MG TAB PO SCH ×2 (04:58→17:43)
[2019-12-08] MEDS: FUROSEMIDE 40 MG/4 ML VIAL IV SCH ×2 (04:58→17:02)
[2019-12-08] MEDS: BUDESONIDE (INHALATION) 0.5 MG/2 ML NEB NEB SCH ×2 (06:02→18:09)
[2019-12-08] MEDS: InsuLIN REG 1unit/0.01ml Soln (100units/ml) SC SCH ×4 (06:08→22:40)
[2019-12-08] MEDS: FERROUS SULFATE 325 MG TAB PO SCH ×2 (08:50→17:43)
[2019-12-08] MEDS: APIXABAN 5 MG TAB PO SCH ×2 (10:00→22:07)
[2019-12-08 10:15] LABS: Basophils # (auto) 0 10 ^3/uL (0-0.2); Basophils % (auto) 0.3 % (0.0-2.0); Eosinophils # (auto) 0 10 ^3/uL (0-0.8); Hematocrit 31.3 % (36.0-46.0); Hemoglobin 9.5 g/dL (12.2-16.2); Lymphocytes # (auto) 0.8 10 ^3/uL (0.4-5.4); Mean Corpuscular Hemoglobin 27.4 pg (28.0-32.0); Mean Corpuscular Hgb Conc. 30.4 g/dL (32.0-36.0); Monocytes # (auto) 0.5 10 ^3/uL (0-1.3); Monocytes % (auto) 3.1 % (0.0-12.0); Neutrophils % (auto) 91.6 % (37.0-80.0); Nucleated Red Blood Cells % 0.1 %; Platelet Count (auto) 320 10^3/uL (140-450); Red Blood Cells 3.48 10^6/uL (4.0-5.20); White Blood Cell 15.3 10^3/uL (4.4-10.8)
[2019-12-08 10:20] LABS: Red Cell Distribution Width 23.8 % (11.8-14.3)
[2019-12-08] MEDS: levoFLOXacin 500MG 100 ML IV SCH (11:01)
[2019-12-08] MEDS: dilTIAZem 120MG ER CAP PO SCH (11:02)
[2019-12-08] MEDS: AMIODARONE HCL 200 MG TAB PO SCH (11:02)
[2019-12-08] MEDS: ASPirin-EC 81 mg tab PO SCH (11:03)
[2019-12-08] MEDS: POTASSIUM CHL 10 Meq TABLET PO SCH (11:03)
[2019-12-08] MEDS: DULoxetine HCL 30 MG CAP PO SCH ×2 (11:03→22:07)
[2019-12-08] MEDS: CARVEDILOL 3.125 MG TAB PO SCH ×2 (11:03→22:07)
[2019-12-08] MEDS: DIGOXIN 0.125 MG TAB PO SCH (11:04)
[2019-12-08] MEDS: PANTOPRAZOLE 40 MG TAB PO SCH (11:09)
[2019-12-08 11:13] LABS: Albumin 3.3 g/dL (3.4-5.0); Calcium 8.8 mg/dL (8.5-10.1)
[2019-12-08 11:18] LABS: BUN/Creatinine Ratio 23.4; Bilirubin, Total 0.2 mg/dL (0.2-1.0); Total Protein 7.2 g/dL (6.4-8.2)
[2019-12-08] MEDS: INSULIN 70/30 1unit/0.01ml Susp (100units/ml) SC SCH (17:19)
[2019-12-08] MEDS ORDERED: DEXTROSE (50%) 50ML SYRG IV PRN (17:45)
[2019-12-08] MEDS: ATORVASTATIN 20 MG TAB PO SCH (22:09)
[2019-12-08] MEDS: lamoTRIgine 100 MG TAB PO SCH (22:35)
[2019-12-08] MEDS: MIRTAZAPINE 30 MG TAB PO SCH (22:36)
[2019-12-09] VITALS (9 sets, daily range): BP systolic 116–140; BP diastolic 51–63
[2019-12-09 03:38] LABS: Basophils # (auto) 0 10 ^3/uL (0-0.2); Basophils % (auto) 0.2 % (0.0-2.0); Eosinophils # (auto) 0 10 ^3/uL (0-0.8); Hematocrit 30.8 % (36.0-46.0); Hemoglobin 9.4 g/dL (12.2-16.2); Lymphocytes % (auto) 6.6 % (10.0-50.0); Mean Corpuscular Hemoglobin 27.2 pg (28.0-32.0); Mean Corpuscular Hgb Conc. 30.6 g/dL (32.0-36.0); Monocytes # (auto) 0.8 10 ^3/uL (0-1.3); Neutrophils # (auto) 13.2 10 ^3/uL (1.6-8.6); Neutrophils % (auto) 88.2 % (37.0-80.0); Nucleated Red Blood Cells % 0.1 %; Platelet Count (auto) 340 10^3/uL (140-450); Red Blood Cells 3.47 10^6/uL (4.0-5.20)
[2019-12-09 03:54] LABS: Albumin 3.2 g/dL (3.4-5.0); Anion Gap 5 (5-15); Blood Urea Nitrogen 44 mg/dL (7-18); Calcium 8.5 mg/dL (8.5-10.1); Chloride 89 mmol/L (98-107); Glucose 319 mg/dL (74-106); Potassium 4.2 mmol/L (3.5-5.1); Sodium 135 mmol/L (136-145)
[2019-12-09 04:02] LABS: Alanine Aminotransferase 16 U/L (13-56); Alkaline Phosphatase 51 U/L (45-117); Aspartate Aminotransferase 10 U/L (15-37); BUN/Creatinine Ratio 32.6; Bilirubin, Total 0.2 mg/dL (0.2-1.0); GFR African American 51 mL/min; GFR Non-African American 43 mL/min; Total Protein 6.7 g/dL (6.4-8.2)
[2019-12-09 04:04] LABS: Carbon Dioxide 41 mmol/L (21-32)
[2019-12-09] MEDS: ROPINIROLE HYDROCHLORIDE PO SCH ×3 (05:58→22:00)
[2019-12-09] MEDS: SPIRONOLACTONE 25 MG TAB PO SCH ×2 (06:05→18:27)
[2019-12-09] MEDS: methylPREDNISolone SOD SUCC 40 MG/ML VL IV SCH ×3 (06:05→18:27)
[2019-12-09] MEDS: CLINDAMYCIN 600MG IV 50 ML IV SCH ×3 (06:05→22:24)
[2019-12-09] MEDS: FUROSEMIDE 40 MG/4 ML VIAL IV SCH ×2 (06:05→18:26)
[2019-12-09] MEDS: IPRATROPIUM BROM 0.5 MG/2.5ML INH SOL NEB SCH ×3 (06:11→18:46)
[2019-12-09] MEDS: ALBUTEROL SULF 2.5 MG/0.5ML(0.5%) NEB SOLN NEB SCH ×3 (06:11→18:45)
[2019-12-09] MEDS: BUDESONIDE (INHALATION) 0.5 MG/2 ML NEB NEB SCH ×2 (06:12→18:49)
[2019-12-09] MEDS: InsuLIN REG 1unit/0.01ml Soln (100units/ml) SC SCH ×4 (06:37→22:30)
[2019-12-09] MEDS: ACCU-CHEK COMFORT CURVE STRIP VI SCH ×4 (06:41→22:22)
[2019-12-09] MEDS ORDERED: ADENOSINE 135 MG in GIVE UN-DILUTED 0 ML IV STA (08:38)
[2019-12-09] MEDS: levoFLOXacin 500MG 100 ML IV SCH (09:55)
[2019-12-09] MEDS: FERROUS SULFATE 325 MG TAB PO SCH ×2 (09:55→18:27)
[2019-12-09] MEDS: CARVEDILOL 3.125 MG TAB PO SCH ×2 (09:57→22:20)
[2019-12-09] MEDS: dilTIAZem 120MG ER CAP PO SCH (09:57)
[2019-12-09] MEDS: AMIODARONE HCL 200 MG TAB PO SCH (09:57)
[2019-12-09] MEDS: APIXABAN 5 MG TAB PO SCH ×2 (09:57→22:17)
[2019-12-09] MEDS: POTASSIUM CHL 10 Meq TABLET PO SCH (09:58)
[2019-12-09] MEDS: ASPirin-EC 81 mg tab PO SCH (09:59)
[2019-12-09] MEDS: DIGOXIN 0.125 MG TAB PO SCH (09:59)
[2019-12-09] MEDS: DULoxetine HCL 30 MG CAP PO SCH ×2 (09:59→22:17)
[2019-12-09] MEDS: PANTOPRAZOLE 40 MG TAB PO SCH (09:59)
[2019-12-09] MEDS ORDERED: OPTISON 3ml Vial for INJ IV ONE (10:21)
[2019-12-09] MEDS: INSULIN 70/30 1unit/0.01ml Susp (100units/ml) SC SCH (18:25)
[2019-12-09] MEDS: lamoTRIgine 100 MG TAB PO SCH (22:17)
[2019-12-09] MEDS: ATORVASTATIN 20 MG TAB PO SCH (22:17)
[2019-12-09] MEDS: MIRTAZAPINE 30 MG TAB PO SCH (22:21)
[2019-12-09] MEDS ORDERED: TEMA15CA91 PO (23:58)
[2019-12-10] MEDS: IPRATROPIUM BROM 0.5 MG/2.5ML INH SOL NEB SCH ×4 (00:24→19:38)
[2019-12-10] MEDS: ALBUTEROL SULF 2.5 MG/0.5ML(0.5%) NEB SOLN NEB SCH ×4 (00:24→19:38)
[2019-12-10] MEDS: TEMAZEPAM 15 MG CAP PO PRN ×2 (00:40→22:49)
[2019-12-10] MEDS: methylPREDNISolone SOD SUCC 40 MG/ML VL IV SCH ×4 (00:40→17:53)
[2019-12-10 05:00] VITALS: BP 118/63
[2019-12-10] MEDS: ROPINIROLE HYDROCHLORIDE PO SCH (06:00)
[2019-12-10] MEDS: CLINDAMYCIN 600MG IV 50 ML IV SCH (06:01)
[2019-12-10] MEDS: FUROSEMIDE 40 MG/4 ML VIAL IV SCH ×2 (06:02→17:53)
[2019-12-10] MEDS: ACCU-CHEK COMFORT CURVE STRIP VI SCH ×4 (06:02→22:00)
[2019-12-10] MEDS: SPIRONOLACTONE 25 MG TAB PO SCH ×2 (06:02→17:54)
[2019-12-10] MEDS: InsuLIN REG 1unit/0.01ml Soln (100units/ml) SC SCH ×4 (06:03→22:42)
[2019-12-10 06:08] LABS: Basophils # (auto) 0 10 ^3/uL (0-0.2); Eosinophils # (auto) 0 10 ^3/uL (0-0.8); Lymphocytes # (auto) 0.6 10 ^3/uL (0.4-5.4)
[2019-12-10 06:09] LABS: Basophils % (auto) 0.3 % (0.0-2.0); Hematocrit 32.7 % (36.0-46.0); Hemoglobin 10.3 g/dL (12.2-16.2); Lymphocytes % (auto) 5.8 % (10.0-50.0); Mean Corpuscular Hemoglobin 27.7 pg (28.0-32.0); Mean Corpuscular Hgb Conc. 31.4 g/dL (32.0-36.0); Mean Corpuscular Volume 88.2 fL (80.0-100.0); Monocytes # (auto) 0.4 10 ^3/uL (0-1.3); Monocytes % (auto) 3.2 % (0.0-12.0); Neutrophils # (auto) 9.9 10 ^3/uL (1.6-8.6); Neutrophils % (auto) 90.7 % (37.0-80.0); Nucleated Red Blood Cells % 0.1 %; Platelet Count (auto) 238 10^3/uL (140-450); Red Blood Cells 3.71 10^6/uL (4.0-5.20)
[2019-12-10] MEDS: BUDESONIDE (INHALATION) 0.5 MG/2 ML NEB NEB SCH ×2 (06:13→19:38)
[2019-12-10 06:17] LABS: Red Cell Distribution Width 23.1 % (11.8-14.3)
[2019-12-10 06:31] LABS: Albumin 3.3 g/dL (3.4-5.0); Calcium 8.5 mg/dL (8.5-10.1); Potassium 4.9 mmol/L (3.5-5.1)
[2019-12-10 06:34] LABS: Bilirubin, Total 0.3 mg/dL (0.2-1.0)
[2019-12-10 06:36] LABS: BUN/Creatinine Ratio 36.7
[2019-12-10] MEDS: FERROUS SULFATE 325 MG TAB PO SCH ×2 (07:41→17:54)
[2019-12-10 08:49] VITALS: BP 127/44
[2019-12-10] MEDS: levoFLOXacin 500MG 100 ML IV SCH (09:16)
[2019-12-10] MEDS: dilTIAZem 120MG ER CAP PO SCH (09:17)
[2019-12-10] MEDS: DULoxetine HCL 30 MG CAP PO SCH ×2 (09:18→22:36)
[2019-12-10] MEDS: POTASSIUM CHL 10 Meq TABLET PO SCH (09:18)
[2019-12-10] MEDS: CARVEDILOL 3.125 MG TAB PO SCH ×2 (09:19→22:57)
[2019-12-10] MEDS: DIGOXIN 0.125 MG TAB PO SCH (09:20)
[2019-12-10] MEDS: APIXABAN 5 MG TAB PO SCH ×2 (09:20→22:37)
[2019-12-10] MEDS: PANTOPRAZOLE 40 MG TAB PO SCH (09:20)
[2019-12-10] MEDS: ASPirin-EC 81 mg tab PO SCH (09:20)
[2019-12-10] MEDS: AMIODARONE HCL 200 MG TAB PO SCH (09:21)
[2019-12-10] MEDS: levoFLOXacin 500 MG TAB PO SCH (10:09)
[2019-12-10 13:00] VITALS: BP 106/52
[2019-12-10] MEDS: ROPINIROLE HYDROCHLORIDE 3 MG PO SCH ×2 (14:52→22:00)
[2019-12-10] MEDS: CLINDAMYCIN HCL 150 MG CAP PO SCH ×2 (14:52→22:37)
[2019-12-10 16:49] VITALS: BP 122/41
[2019-12-10] MEDS: metFORMIN HYDROCHLORIDE 850 MG TAB PO SCH (17:55)
[2019-12-10] MEDS: INSULIN 70/30 1unit/0.01ml Susp (100units/ml) SC SCH (18:36)
[2019-12-10 22:00] VITALS: BP_SYST 109; BP_SYST 135; BP_DIAS 52; BP_DIAS 70
[2019-12-10] MEDS: lamoTRIgine 100 MG TAB PO SCH (22:37)
[2019-12-10] MEDS: ATORVASTATIN 20 MG TAB PO SCH (22:38)
[2019-12-10] MEDS: MIRTAZAPINE 30 MG TAB PO SCH (22:39)
[2019-12-10] MEDS ORDERED: DEXTROSE (50%) 50ML SYRG IV PRN (23:45)
[2019-12-11] MEDS: methylPREDNISolone SOD SUCC 40 MG/ML VL IV SCH ×2 (00:34→06:13)
[2019-12-11] MEDS: InsuLIN REG 1unit/0.01ml Soln (100units/ml) SC SCH ×5 (00:36→19:45)
[2019-12-11] MEDS: ACCU-CHEK COMFORT CURVE STRIP VI SCH ×6 (04:00→19:44)
[2019-12-11 05:00] VITALS: BP 107/55
[2019-12-11 05:34] LABS: Basophils # (auto) 0 10 ^3/uL (0-0.2); Eosinophils # (auto) 0 10 ^3/uL (0-0.8); Hematocrit 33.9 % (36.0-46.0); Hemoglobin 10.7 g/dL (12.2-16.2); Lymphocytes # (auto) 0.8 10 ^3/uL (0.4-5.4); Lymphocytes % (auto) 7.9 % (10.0-50.0); Mean Corpuscular Hemoglobin 27.7 pg (28.0-32.0); Mean Corpuscular Hgb Conc. 31.4 g/dL (32.0-36.0); Mean Corpuscular Volume 88.2 fL (80.0-100.0); Monocytes # (auto) 0.9 10 ^3/uL (0-1.3); Monocytes % (auto) 8.3 % (0.0-12.0); Neutrophils # (auto) 8.7 10 ^3/uL (1.6-8.6); Neutrophils % (auto) 83.8 % (37.0-80.0); Nucleated Red Blood Cells % 0.2 %; Platelet Count (auto) 350 10^3/uL (140-450); Red Blood Cells 3.85 10^6/uL (4.0-5.20); White Blood Cell 10.4 10^3/uL (4.4-10.8)
[2019-12-11 05:42] LABS: Red Cell Distribution Width 22.6 % (11.8-14.3)
[2019-12-11 05:45] LABS: Albumin 3.4 g/dL (3.4-5.0); Calcium 8.3 mg/dL (8.5-10.1); Potassium 3.8 mmol/L (3.5-5.1)
[2019-12-11 05:50] LABS: BUN/Creatinine Ratio 37.3; Bilirubin, Total 0.3 mg/dL (0.2-1.0); Total Protein 7.2 g/dL (6.4-8.2)
[2019-12-11] MEDS: SPIRONOLACTONE 25 MG TAB PO SCH ×2 (06:11→17:25)
[2019-12-11] MEDS: CLINDAMYCIN HCL 150 MG CAP PO SCH ×3 (06:11→21:31)
[2019-12-11] MEDS: FUROSEMIDE 40 MG/4 ML VIAL IV SCH ×2 (06:12→17:24)
[2019-12-11] MEDS: IPRATROPIUM BROM 0.5 MG/2.5ML INH SOL NEB SCH ×4 (06:15→17:57)
[2019-12-11] MEDS: BUDESONIDE (INHALATION) 0.5 MG/2 ML NEB NEB SCH ×2 (06:15→17:57)
[2019-12-11] MEDS: ALBUTEROL SULF 2.5 MG/0.5ML(0.5%) NEB SOLN NEB SCH ×4 (06:15→17:57)
[2019-12-11] MEDS: metFORMIN HYDROCHLORIDE 850 MG TAB PO SCH ×4 (08:00→18:34)
[2019-12-11] MEDS: ROPINIROLE HYDROCHLORIDE 3 MG PO SCH ×3 (08:36→21:32)
[2019-12-11] MEDS: FERROUS SULFATE 325 MG TAB PO SCH ×2 (08:36→17:25)
[2019-12-11] MEDS: AMIODARONE HCL 200 MG TAB PO SCH (08:40)
[2019-12-11] MEDS: dilTIAZem 120MG ER CAP PO SCH (08:40)
[2019-12-11] MEDS: DULoxetine HCL 30 MG CAP PO SCH ×2 (08:41→21:30)
[2019-12-11] MEDS: CARVEDILOL 3.125 MG TAB PO SCH ×2 (08:41→21:32)
[2019-12-11] MEDS: ASPirin-EC 81 mg tab PO SCH (08:41)
[2019-12-11] MEDS: POTASSIUM CHL 10 Meq TABLET PO SCH (08:42)
[2019-12-11] MEDS: APIXABAN 5 MG TAB PO SCH ×2 (08:42→21:30)
[2019-12-11] MEDS: levoFLOXacin 500 MG TAB PO SCH (08:43)
[2019-12-11] MEDS: DIGOXIN 0.125 MG TAB PO SCH (08:43)
[2019-12-11] MEDS: PANTOPRAZOLE 40 MG TAB PO SCH (08:43)
[2019-12-11] MEDS: PROMETHAZINE HCL 25 MG/ML 1ML IV PRN (08:44)
[2019-12-11 09:00] VITALS: BP 138/54
[2019-12-11] MEDS ORDERED: DEXTROSE (50%) 50ML SYRG IV PRN (12:30)
[2019-12-11] MEDS ORDERED: InsuLIN REG 1unit/0.01ml Soln (100units/ml) SC SCH (12:45)
[2019-12-11 13:00] VITALS: BP 109/53
[2019-12-11] MEDS ORDERED: SUCRALFATE 1 GM/10 ML ORAL SUSP PO ONE (14:15)
[2019-12-11 16:51] VITALS: BP 112/41
[2019-12-11] MEDS: INSULIN 70/30 1unit/0.01ml Susp (100units/ml) SC SCH (17:22)
[2019-12-11] MEDS: traMADol HCL 50 MG TAB PO PRN (17:25)
[2019-12-11] MEDS: SUCRALFATE 1 GM/10 ML ORAL SUSP GT SCH ×2 (19:44→22:00)
[2019-12-11] MEDS: MIRTAZAPINE 30 MG TAB PO SCH (21:30)
[2019-12-11] MEDS: TEMAZEPAM 15 MG CAP PO PRN (21:30)
[2019-12-11] MEDS: lamoTRIgine 100 MG TAB PO SCH (21:31)
[2019-12-11] MEDS: ATORVASTATIN 20 MG TAB PO SCH (21:31)
[2019-12-11] MEDS: NYSTATIN TOPICAL POWDER 15GM TOP SCH (21:33)
[2019-12-11 21:58] VITALS: BP 103/49
[2019-12-12] MEDS: ALBUTEROL SULF 2.5 MG/0.5ML(0.5%) NEB SOLN NEB SCH ×5 (00:05→23:27)
[2019-12-12] MEDS: IPRATROPIUM BROM 0.5 MG/2.5ML INH SOL NEB SCH ×5 (00:05→23:26)
[2019-12-12] MEDS: ACCU-CHEK COMFORT CURVE STRIP VI SCH ×6 (00:32→19:52)
[2019-12-12] MEDS: InsuLIN REG 1unit/0.01ml Soln (100units/ml) SC SCH ×6 (04:00→19:53)
[2019-12-12 05:40] VITALS: BP 126/66
[2019-12-12 05:52] LABS: Basophils # (auto) 0 10 ^3/uL (0-0.2); Basophils % (auto) 0.1 % (0.0-2.0); Eosinophils # (auto) 0.1 10 ^3/uL (0-0.8); Eosinophils % (auto) 0.6 % (0.0-7.0); Hematocrit 34.4 % (36.0-46.0); Hemoglobin 10.6 g/dL (12.2-16.2); Lymphocytes # (auto) 2.7 10 ^3/uL (0.4-5.4); Lymphocytes % (auto) 21.6 % (10.0-50.0); Mean Corpuscular Hemoglobin 27.3 pg (28.0-32.0); Mean Corpuscular Hgb Conc. 30.8 g/dL (32.0-36.0); Mean Corpuscular Volume 88.6 fL (80.0-100.0); Monocytes # (auto) 1.5 10 ^3/uL (0-1.3); Monocytes % (auto) 12.1 % (0.0-12.0); Neutrophils # (auto) 8.3 10 ^3/uL (1.6-8.6); Neutrophils % (auto) 65.6 % (37.0-80.0); Nucleated Red Blood Cells % 0.2 %; Platelet Count (auto) 335 10^3/uL (140-450); Red Blood Cells 3.89 10^6/uL (4.0-5.20); Red Cell Distribution Width 22.6 % (11.8-14.3); White Blood Cell 12.6 10^3/uL (4.4-10.8)
[2019-12-12 06:05] LABS: Calcium 8.2 mg/dL (8.5-10.1); Potassium 3.2 mmol/L (3.5-5.1)
[2019-12-12 06:09] LABS: BUN/Creatinine Ratio 38.6
[2019-12-12] MEDS: CLINDAMYCIN HCL 150 MG CAP PO SCH ×4 (06:14→22:04)
[2019-12-12] MEDS: SPIRONOLACTONE 25 MG TAB PO SCH ×2 (06:14→17:57)
[2019-12-12] MEDS: ROPINIROLE HYDROCHLORIDE 3 MG PO SCH ×3 (06:15→22:05)
[2019-12-12] MEDS: SUCRALFATE 1 GM/10 ML ORAL SUSP GT SCH ×4 (06:15→22:03)
[2019-12-12] MEDS: FUROSEMIDE 40 MG/4 ML VIAL IV SCH (06:15)
[2019-12-12] MEDS: BUDESONIDE (INHALATION) 0.5 MG/2 ML NEB NEB SCH ×2 (06:22→18:53)
[2019-12-12] MEDS: metFORMIN HYDROCHLORIDE 850 MG TAB PO SCH (07:54)
[2019-12-12] MEDS: FERROUS SULFATE 325 MG TAB PO SCH ×2 (07:54→17:57)
[2019-12-12] MEDS: PROMETHAZINE HCL 25 MG/ML 1ML IV PRN ×2 (08:33→19:52)
[2019-12-12] MEDS: traMADol HCL 50 MG TAB PO PRN ×2 (08:34→19:52)
[2019-12-12 09:00] VITALS: BP 126/71
[2019-12-12] MEDS: ASPirin-EC 81 mg tab PO SCH (09:11)
[2019-12-12] MEDS: levoFLOXacin 500 MG TAB PO SCH (09:11)
[2019-12-12] MEDS: NYSTATIN TOPICAL POWDER 15GM TOP SCH ×2 (09:11→22:05)
[2019-12-12] MEDS: CARVEDILOL 3.125 MG TAB PO SCH ×2 (09:12→22:00)
[2019-12-12] MEDS: DULoxetine HCL 30 MG CAP PO SCH ×2 (09:12→22:04)
[2019-12-12] MEDS: dilTIAZem 120MG ER CAP PO SCH (09:12)
[2019-12-12] MEDS: APIXABAN 5 MG TAB PO SCH ×2 (09:13→22:00)
[2019-12-12] MEDS: PANTOPRAZOLE 40 MG TAB PO SCH (09:13)
[2019-12-12] MEDS: DIGOXIN 0.125 MG TAB PO SCH (09:13)
[2019-12-12] MEDS: AMIODARONE HCL 200 MG TAB PO SCH (09:14)
[2019-12-12] MEDS: POTASSIUM CHL 10 Meq TABLET PO SCH (09:14)
[2019-12-12 13:00] VITALS: BP 126/62
[2019-12-12 16:39] VITALS: BP 110/52
[2019-12-12] MEDS: INSULIN 70/30 1unit/0.01ml Susp (100units/ml) SC SCH (17:56)
[2019-12-12 18:55] VITALS: BP 110/52
[2019-12-12 21:49] VITALS: BP 117/47
[2019-12-12] MEDS: ATORVASTATIN 20 MG TAB PO SCH (22:04)
[2019-12-12] MEDS: TEMAZEPAM 15 MG CAP PO PRN (22:04)
[2019-12-12] MEDS: lamoTRIgine 100 MG TAB PO SCH (22:04)
[2019-12-12] MEDS: MIRTAZAPINE 30 MG TAB PO SCH (22:05)
[2019-12-13] MEDS: ACCU-CHEK COMFORT CURVE STRIP VI SCH ×6 (00:13→20:51)
[2019-12-13] MEDS: InsuLIN REG 1unit/0.01ml Soln (100units/ml) SC SCH ×6 (00:14→20:52)
[2019-12-13 04:49] VITALS: BP 111/93
[2019-12-13] MEDS: SPIRONOLACTONE 25 MG TAB PO SCH ×2 (06:00→17:43)
[2019-12-13] MEDS: ROPINIROLE HYDROCHLORIDE 3 MG PO SCH ×3 (06:00→22:06)
[2019-12-13] MEDS: CLINDAMYCIN HCL 150 MG CAP PO SCH ×3 (06:00→22:04)
[2019-12-13] MEDS: SUCRALFATE 1 GM TAB PO SCH ×4 (06:23→22:05)
[2019-12-13 06:59] LABS: INR 0.98 (0.9-1.15); Partial Thromboplastin Time 23.9 sec (23.64-32.05)
[2019-12-13 07:01] LABS: Potassium 3.7 mmol/L (3.5-5.1)
[2019-12-13 07:07] LABS: BUN/Creatinine Ratio 31.8; Calcium 8.8 mg/dL (8.5-10.1)
[2019-12-13] MEDS: ALBUTEROL SULF 2.5 MG/0.5ML(0.5%) NEB SOLN NEB SCH ×3 (07:13→23:48)
[2019-12-13] MEDS: BUDESONIDE (INHALATION) 0.5 MG/2 ML NEB NEB SCH ×2 (07:13→18:43)
[2019-12-13] MEDS: IPRATROPIUM BROM 0.5 MG/2.5ML INH SOL NEB SCH ×3 (07:13→23:48)
[2019-12-13 07:43] LABS: Basophils # (auto) 0 10 ^3/uL (0-0.2); Basophils % (auto) 0.3 % (0.0-2.0); Eosinophils # (auto) 0.2 10 ^3/uL (0-0.8); Hematocrit 38.6 % (36.0-46.0); Hemoglobin 11.8 g/dL (12.2-16.2); Lymphocytes # (auto) 2.5 10 ^3/uL (0.4-5.4); Lymphocytes % (auto) 21.6 % (10.0-50.0); Mean Corpuscular Hemoglobin 27.2 pg (28.0-32.0); Mean Corpuscular Hgb Conc. 30.5 g/dL (32.0-36.0); Mean Corpuscular Volume 89.1 fL (80.0-100.0); Monocytes # (auto) 1.3 10 ^3/uL (0-1.3); Neutrophils # (auto) 7.5 10 ^3/uL (1.6-8.6); Neutrophils % (auto) 65.1 % (37.0-80.0); Nucleated Red Blood Cells % 0.2 %; Platelet Count (auto) 332 10^3/uL (140-450); Red Blood Cells 4.33 10^6/uL (4.0-5.20); White Blood Cell 11.5 10^3/uL (4.4-10.8)
[2019-12-13] MEDS: FERROUS SULFATE 325 MG TAB PO SCH ×2 (07:59→17:43)
[2019-12-13 08:02] LABS: Red Cell Distribution Width 22.5 % (11.8-14.3)
[2019-12-13 09:00] VITALS: BP 130/44
[2019-12-13] MEDS: AMIODARONE HCL 200 MG TAB PO SCH (10:00)
[2019-12-13] MEDS: CARVEDILOL 3.125 MG TAB PO SCH ×2 (10:00→22:09)
[2019-12-13] MEDS: dilTIAZem 120MG ER CAP PO SCH (10:00)
[2019-12-13] MEDS: levoFLOXacin 500 MG TAB PO SCH (11:07)
[2019-12-13] MEDS: ASPirin-EC 81 mg tab PO SCH (11:07)
[2019-12-13] MEDS: DULoxetine HCL 30 MG CAP PO SCH ×2 (11:07→22:04)
[2019-12-13] MEDS: DIGOXIN 0.125 MG TAB PO SCH (11:08)
[2019-12-13] MEDS: PANTOPRAZOLE 40 MG TAB PO SCH (11:08)
[2019-12-13] MEDS: NYSTATIN TOPICAL POWDER 15GM TOP SCH ×2 (11:10→22:05)
[2019-12-13 13:00] VITALS: BP 127/43
[2019-12-13] MEDS ORDERED: ANGIOMAX 250 MG VIAL IV ONE (13:04)
[2019-12-13] MEDS ORDERED: LIDOCAINE 2%HCL (LOCAL ANESTH.) INJ 20ML MDV ONE (13:04)
[2019-12-13] MEDS ORDERED: MIDAZOLAM HCL 1MG/1ML-2 ML VIAL ONE (13:04)
[2019-12-13] MEDS ORDERED: SODIUM CHL 0.9% 0 ML ONE (13:04)
[2019-12-13] MEDS ORDERED: fentaNYL CITRATE 100 MCG/2 ML VL ONE (13:04)
[2019-12-13] MEDS ORDERED: IODIXANOL 320MG/ML 100ML BTL IV ONE (13:12)
[2019-12-13] MEDS ORDERED: VERAPAMIL 2.5MG/ML INJ 2ML VIAL IV ONE (13:26)
[2019-12-13] MEDS ORDERED: HEPARIN SODIUM (PORCINE) 5000 UNITS/ML 1ML VIAL ONE (13:26)
[2019-12-13 16:33] VITALS: BP 135/70
[2019-12-13] MEDS: INSULIN 70/30 1unit/0.01ml Susp (100units/ml) SC SCH (17:50)
[2019-12-13 21:00] VITALS: BP 138/50
[2019-12-13] MEDS: ATORVASTATIN 20 MG TAB PO SCH (22:04)
[2019-12-13] MEDS: lamoTRIgine 100 MG TAB PO SCH (22:04)
[2019-12-13] MEDS: MIRTAZAPINE 30 MG TAB PO SCH (22:04)
[2019-12-13] MEDS: TEMAZEPAM 15 MG CAP PO PRN (22:06)
[2019-12-14] MEDS: ACCU-CHEK COMFORT CURVE STRIP VI SCH ×6 (00:26→20:32)
[2019-12-14] MEDS: InsuLIN REG 1unit/0.01ml Soln (100units/ml) SC SCH ×6 (00:28→20:33)
[2019-12-14 04:30] VITALS: BP 145/52
[2019-12-14 05:45] LABS: Basophils # (auto) 0 10 ^3/uL (0-0.2); Basophils % (auto) 0.1 % (0.0-2.0); Eosinophils # (auto) 0.3 10 ^3/uL (0-0.8); Eosinophils % (auto) 2.3 % (0.0-7.0); Hematocrit 34.6 % (36.0-46.0); Hemoglobin 10.6 g/dL (12.2-16.2); Lymphocytes # (auto) 1.8 10 ^3/uL (0.4-5.4); Lymphocytes % (auto) 15.8 % (10.0-50.0); Mean Corpuscular Hemoglobin 27.1 pg (28.0-32.0); Mean Corpuscular Hgb Conc. 30.6 g/dL (32.0-36.0); Mean Corpuscular Volume 88.5 fL (80.0-100.0); Monocytes # (auto) 1.1 10 ^3/uL (0-1.3); Monocytes % (auto) 9.9 % (0.0-12.0); Neutrophils % (auto) 71.9 % (37.0-80.0); Nucleated Red Blood Cells % 0.1 %; Platelet Count (auto) 284 10^3/uL (140-450); Red Blood Cells 3.91 10^6/uL (4.0-5.20); White Blood Cell 11.2 10^3/uL (4.4-10.8)
[2019-12-14 05:54] LABS: Anion Gap 5 (5-15); Blood Urea Nitrogen 30 mg/dL (7-18); Calcium 8.3 mg/dL (8.5-10.1); Chloride 91 mmol/L (98-107); Glucose 147 mg/dL (74-106); Potassium 3.7 mmol/L (3.5-5.1); Sodium 137 mmol/L (136-145)
[2019-12-14 05:56] LABS: BUN/Creatinine Ratio 28.3; GFR African American 68 mL/min; GFR Non-African American 56 mL/min
[2019-12-14 05:57] LABS: Carbon Dioxide 41 mmol/L (21-32)
[2019-12-14] MEDS: IPRATROPIUM BROM 0.5 MG/2.5ML INH SOL NEB SCH ×4 (06:13→23:55)
[2019-12-14] MEDS: ALBUTEROL SULF 2.5 MG/0.5ML(0.5%) NEB SOLN NEB SCH ×4 (06:13→23:55)
[2019-12-14] MEDS: BUDESONIDE (INHALATION) 0.5 MG/2 ML NEB NEB SCH ×2 (06:13→18:36)
[2019-12-14 06:21] LABS: Red Cell Distribution Width 22.1 % (11.8-14.3)
[2019-12-14] MEDS: CLINDAMYCIN HCL 150 MG CAP PO SCH ×3 (06:39→21:47)
[2019-12-14] MEDS: SUCRALFATE 1 GM TAB PO SCH ×4 (06:39→21:48)
[2019-12-14] MEDS: SPIRONOLACTONE 25 MG TAB PO SCH ×2 (06:39→17:37)
[2019-12-14] MEDS: ROPINIROLE HYDROCHLORIDE 3 MG PO SCH ×3 (06:40→21:48)
[2019-12-14 08:31] VITALS: BP 104/51
[2019-12-14] MEDS: levoFLOXacin 500 MG TAB PO SCH (09:07)
[2019-12-14] MEDS: NYSTATIN TOPICAL POWDER 15GM TOP SCH ×2 (09:07→21:50)
[2019-12-14] MEDS: DIGOXIN 0.125 MG TAB PO SCH (09:07)
[2019-12-14] MEDS: FERROUS SULFATE 325 MG TAB PO SCH ×2 (09:07→17:37)
[2019-12-14] MEDS: PANTOPRAZOLE 40 MG TAB PO SCH (09:08)
[2019-12-14] MEDS: ASPirin-EC 81 mg tab PO SCH (09:08)
[2019-12-14] MEDS: DULoxetine HCL 30 MG CAP PO SCH ×2 (09:08→21:48)
[2019-12-14] MEDS: dilTIAZem 120MG ER CAP PO SCH (09:08)
[2019-12-14] MEDS: CARVEDILOL 3.125 MG TAB PO SCH ×2 (09:09→21:50)
[2019-12-14] MEDS: AMIODARONE HCL 200 MG TAB PO SCH (09:10)
[2019-12-14] MEDS: PROMETHAZINE HCL 25 MG/ML 1ML IV PRN (10:41)
[2019-12-14 13:00] VITALS: BP 107/53
[2019-12-14 16:58] VITALS: BP 112/64
[2019-12-14] MEDS: INSULIN 70/30 1unit/0.01ml Susp (100units/ml) SC SCH (17:36)
[2019-12-14] MEDS: FUROSEMIDE 20 MG TAB PO SCH (18:23)
[2019-12-14 20:58] VITALS: BP 118/83
[2019-12-14] MEDS: lamoTRIgine 100 MG TAB PO SCH (21:46)
[2019-12-14] MEDS: ATORVASTATIN 20 MG TAB PO SCH (21:47)
[2019-12-14] MEDS: MIRTAZAPINE 30 MG TAB PO SCH (21:49)
[2019-12-14] MEDS: TEMAZEPAM 15 MG CAP PO PRN (21:54)
[2019-12-15] MEDS: InsuLIN REG 1unit/0.01ml Soln (100units/ml) SC SCH ×4 (04:00→11:23)
[2019-12-15] MEDS: ACCU-CHEK COMFORT CURVE STRIP VI SCH ×4 (04:12→11:23)
[2019-12-15 05:11] VITALS: BP 104/57
[2019-12-15] MEDS: BUDESONIDE (INHALATION) 0.5 MG/2 ML NEB NEB SCH (06:23)
[2019-12-15] MEDS: IPRATROPIUM BROM 0.5 MG/2.5ML INH SOL NEB SCH (06:23)
[2019-12-15] MEDS: ALBUTEROL SULF 2.5 MG/0.5ML(0.5%) NEB SOLN NEB SCH (06:23)
[2019-12-15] MEDS: CLINDAMYCIN HCL 150 MG CAP PO SCH (06:42)
[2019-12-15] MEDS: FUROSEMIDE 20 MG TAB PO SCH (06:42)
[2019-12-15] MEDS: SUCRALFATE 1 GM TAB PO SCH ×2 (06:42→11:22)
[2019-12-15] MEDS: ROPINIROLE HYDROCHLORIDE 3 MG PO SCH (06:43)
[2019-12-15] MEDS: FERROUS SULFATE 325 MG TAB PO SCH (07:30)
[2019-12-15 09:00] VITALS: BP 110/49
[2019-12-15] MEDS: DULoxetine HCL 30 MG CAP PO SCH (09:13)
[2019-12-15] MEDS: DIGOXIN 0.125 MG TAB PO SCH (09:14)
[2019-12-15] MEDS: levoFLOXacin 500 MG TAB PO SCH (09:14)
[2019-12-15] MEDS: ASPirin-EC 81 mg tab PO SCH (09:14)
[2019-12-15] MEDS: PANTOPRAZOLE 40 MG TAB PO SCH (09:14)
[2019-12-15] MEDS: dilTIAZem 120MG ER CAP PO SCH (09:15)
[2019-12-15] MEDS: AMIODARONE HCL 200 MG TAB PO SCH (09:15)
[2019-12-15] MEDS: CARVEDILOL 3.125 MG TAB PO SCH (09:16)
[2019-12-15] MEDS: NYSTATIN TOPICAL POWDER 15GM TOP SCH (09:17)
[2019-12-15] MEDS ORDERED: CLIN150C PO (10:21)
[2019-12-15] MEDS ORDERED: LEVO-28 PO (10:21)
[2019-12-15] MEDS ORDERED: PANT40TA2 PO (10:22)
[2019-12-15 10:48] VITALS: BP 110/49
[2019-12-15] MEDS ORDERED: RIVA20TA PO (16:00)
[2019-12-15] MEDS ORDERED: metFORMIN HYDROCHLORIDE 850 MG TAB PO SCH (18:00)
== END 2019-12-15 11:55 | disposition home or self-care (01) | DRG 720 ==
LOC: ER 14:54 → EDBD 14:54 → TELE 14:55 → DOU IN ICU 23:36 → TELE-WESTW 12-09 20:22
PROVIDERS: ADMIT Internal Medicine; ATTEND Internal Medicine Nephrology
PROC: 5A09357 Assistance with Respiratory Ventilation, Less than 24 Consecutive Hours, Continuous Positive Airway Pressure (ICD-10-PCS; principal; 2019-12-06)
PROC: 5A09357 Assistance with Respiratory Ventilation, Less than 24 Consecutive Hours, Continuous Positive Airway Pressure (ICD-10-PCS; 2019-12-07)
PROC: 5A09357 Assistance with Respiratory Ventilation, Less than 24 Consecutive Hours, Continuous Positive Airway Pressure (ICD-10-PCS; 2019-12-08)
PROC: 5A09357 Assistance with Respiratory Ventilation, Less than 24 Consecutive Hours, Continuous Positive Airway Pressure (ICD-10-PCS; 2019-12-10)
PROC: 5A09357 Assistance with Respiratory Ventilation, Less than 24 Consecutive Hours, Continuous Positive Airway Pressure (ICD-10-PCS; 2019-12-11)
PROC: 5A09357 Assistance with Respiratory Ventilation, Less than 24 Consecutive Hours, Continuous Positive Airway Pressure (ICD-10-PCS; 2019-12-12)
PROC: 4A023N7 Measurement of Cardiac Sampling and Pressure, Left Heart, Percutaneous Approach (ICD-10-PCS; 2019-12-13)
PROC: B2111ZZ Fluoroscopy of Multiple Coronary Arteries using Low Osmolar Contrast (ICD-10-PCS; 2019-12-13)
PROC: B2151ZZ Fluoroscopy of Left Heart using Low Osmolar Contrast (ICD-10-PCS; 2019-12-13)
PROC: 5A09357 Assistance with Respiratory Ventilation, Less than 24 Consecutive Hours, Continuous Positive Airway Pressure (ICD-10-PCS; 2019-12-13)
PROC: 5A09357 Assistance with Respiratory Ventilation, Less than 24 Consecutive Hours, Continuous Positive Airway Pressure (ICD-10-PCS; 2019-12-14)
PROC: 5A09357 Assistance with Respiratory Ventilation, Less than 24 Consecutive Hours, Continuous Positive Airway Pressure (ICD-10-PCS; 2019-12-15)
DX: A41.9 Sepsis, unspecified organism (principal); J96.21 Acute and chronic respiratory failure with hypoxia; I50.43 Acute on chronic combined systolic (congestive) and diastolic (congestive) heart failure; I48.91 Unspecified atrial fibrillation; E11.21 Type 2 diabetes mellitus with diabetic nephropathy; E11.65 Type 2 diabetes mellitus with hyperglycemia; I48.92 Unspecified atrial flutter; D63.8 Anemia in other chronic diseases classified elsewhere; E78.00 Pure hypercholesterolemia, unspecified; E78.5 Hyperlipidemia, unspecified; I11.0 Hypertensive heart disease with heart failure; E66.2 Morbid (severe) obesity with alveolar hypoventilation; Z96.653 Presence of artificial knee joint, bilateral; J44.1 Chronic obstructive pulmonary disease with (acute) exacerbation; J96.22 Acute and chronic respiratory failure with hypercapnia; L03.115 Cellulitis of right lower limb; L03.116 Cellulitis of left lower limb; Z80.0 Family history of malignant neoplasm of digestive organs; Z81.8 Family history of other mental and behavioral disorders; Z68.41 Body mass index [BMI] 40.0-44.9, adult; Z82.0 Family history of epilepsy and other diseases of the nervous system; Z83.3 Family history of diabetes mellitus; Z87.891 Personal history of nicotine dependence; Z82.49 Family history of ischemic heart disease and other diseases of the circulatory system
CPT/HCPCS: 36415; 36600; 51702; 71045; 78452; 80048; 80053; 80162; 80307; 81001; 82550; 82805; 82962; 83036; 83605; 83735; 83880; 84443; 84484; 85025; 85379; 85610; 85652; 85730; 86141; 86850; 86900; 86901; 87040; 87081; 93017; 93306; 93458; 93925; 93970; 94640; 94644; 94660; 96365; 96368; 96375; 97163; 99152; 99291; G0378; J0153; J1815; J1956; J2250; J3490; Q9956; Q9967

== ENCOUNTER 2019-12-28 15:18 | Inpatient (IN) | payer MEDICAID ==
[~2019-12-28] VITALS: Ht 172.7 cm; Wt 151.1 kg
[~2019-12-28 15:18] MED LIST changes: -AZIT250T8 PO; -CHOL200039 PO; +CLIN150C PO; -HYDR4CRE35 PR; +LEVO-28 PO; +PANT40TA2 PO
[2019-12-28 16:14] LABS: Basophils # (auto) 0 10 ^3/uL (0-0.2); Basophils % (auto) 0.4 % (0.0-2.0); Eosinophils # (auto) 0.1 10 ^3/uL (0-0.8); Hemoglobin 7.1 g/dL (12.2-16.2); Lymphocytes # (auto) 1.4 10 ^3/uL (0.4-5.4); Lymphocytes % (auto) 14.5 % (10.0-50.0); Monocytes # (auto) 1.1 10 ^3/uL (0-1.3); Neutrophils % (auto) 72.7 % (37.0-80.0); White Blood Cell 9.8 10^3/uL (4.4-10.8)
[2019-12-28 16:16] LABS: Eosinophils % (auto) 1.3 % (0.0-7.0); Hematocrit 23.2 % (36.0-46.0); Mean Corpuscular Hemoglobin 28.4 pg (28.0-32.0); Mean Corpuscular Hgb Conc. 30.6 g/dL (32.0-36.0); Mean Corpuscular Volume 92.9 fL (80.0-100.0); Monocytes % (auto) 11.1 % (0.0-12.0); Neutrophils # (auto) 7.2 10 ^3/uL (1.6-8.6); Nucleated Red Blood Cells % 0.8 %; Platelet Count (auto) 347 10^3/uL (140-450)
[2019-12-28] MEDS ORDERED: IPRATROPIUM BROM 0.5 MG/2.5ML INH SOL HHN ONE (16:30)
[2019-12-28] MEDS ORDERED: methylPREDNISolone SOD SUCC 125 MG/2 ML VL IV ONE (16:30)
[2019-12-28] MEDS ORDERED: ALBUTEROL SULF 2.5 MG/0.5ML(0.5%) NEB SOLN HHN ONE (16:30)
[2019-12-28 16:32] LABS: Albumin 3.4 g/dL (3.4-5.0); Anion Gap 14 (5-15); Blood Urea Nitrogen 38 mg/dL (7-18); Calcium 8.7 mg/dL (8.5-10.1); Carbon Dioxide 26 mmol/L (21-32); Chloride 102 mmol/L (98-107); Glucose 162 mg/dL (74-106); Potassium 4.1 mmol/L (3.5-5.1); Sodium 142 mmol/L (136-145)
[2019-12-28 16:36] LABS: Red Cell Distribution Width 22.6 % (11.8-14.3)
[2019-12-28 16:38] LABS: Alanine Aminotransferase 42 U/L (13-56); Alkaline Phosphatase 65 U/L (45-117); Aspartate Aminotransferase 36 U/L (15-37); Bilirubin, Total 0.3 mg/dL (0.2-1.0); GFR African American 31 mL/min; GFR Non-African American 25 mL/min; Total Protein 6.8 g/dL (6.4-8.2)
[2019-12-28 18:05] VITALS: BP 118/57
[2019-12-28] MEDS ORDERED: MORPHINE SULF INJ 2 MG/ML SYRINGE 1ML IV PRN (18:15)
[2019-12-28] MEDS ORDERED: NITROGLYCERIN 0.4 MG SL TAB SL PRN (18:15)
[2019-12-28 18:30] VITALS: BP 118/57
[2019-12-28] MEDS ORDERED: ACETAMINOPHEN 500 MG TAB PO PRN (18:30)
[2019-12-28] MEDS ORDERED: ALBUTEROL SULF 2.5 MG/0.5ML(0.5%) NEB SOLN NEB PRN (18:30)
[2019-12-28] MEDS: methylPREDNISolone SOD SUCC 40 MG/ML VL IV SCH (18:30)
[2019-12-28] MEDS ORDERED: DEXTROSE (50%) 50ML SYRG IV PRN (18:30)
[2019-12-28] MEDS ORDERED: traMADol HCL 50 MG TAB PO PRN (18:30)
[2019-12-28] MEDS: CHOLECALCIFEROL (VITD3) 1,000IU=25mCg TAB PO SCH (19:27)
[2019-12-28] MEDS: ASCORBIC ACID 1,000 MG TAB PO SCH (19:27)
[2019-12-28] MEDS: ZINC SULFATE 220mg CAP or TAB PO SCH (19:27)
[2019-12-28] MEDS: FUROSEMIDE 100 MG/10ML VIAL IV SCH (19:28)
[2019-12-28] MEDS: levoFLOXacin 500MG 100 ML IV SCH (19:29)
[2019-12-28 19:55] VITALS: BP 119/42
[2019-12-28 20:51] LABS: Urine Bacteria FEW /hpf (None Seen); Urine Blood Negative /uL (Negative); Urine Hyaline Cast MANY /lpf (0 - 2); Urine Mucus FEW (None Seen); Urine Specific Gravity 1.014 (1.001-1.035); Urine WBC 2 /hpf (0 - 5)
[2019-12-28] MEDS ORDERED: ALBUTEROL SULF HFA 90MCG INH 200DOSE IN SCH (22:00)
[2019-12-28] MEDS: ALBUTEROL SULF 2.5 MG/0.5ML(0.5%) NEB SOLN NEB SCH (22:00)
[2019-12-28] MEDS: IPRATROPIUM BROM 0.5 MG/2.5ML INH SOL NEB SCH (22:00)
[2019-12-28 22:30] VITALS: BP 144/56
[2019-12-28] MEDS: ROPINIROLE HYDROCHLORIDE 3 MG PO SCH (22:58)
[2019-12-28] MEDS: ACCU-CHEK COMFORT CURVE STRIP VI SCH (23:44)
[2019-12-28] MEDS: MIRTAZAPINE 30 MG TAB PO SCH (23:44)
[2019-12-28] MEDS: POTASSIUM CHL 20 Meq TABLET PO SCH (23:44)
[2019-12-28] MEDS: TEMAZEPAM 15 MG CAP PO PRN (23:44)
[2019-12-28] MEDS: InsuLIN REG 1unit/0.01ml Soln (100units/ml) SC SCH (23:45)
[2019-12-28] MEDS: INSULIN LANTUS (GLARGINE) 1 /0.01ml (100units/ml) SC SCH (23:45)
[2019-12-29] MEDS: ROPINIROLE HYDROCHLORIDE 3 MG PO SCH ×3 (00:55→22:00)
[2019-12-29] MEDS ORDERED: CEPH500T PO (01:03)
[2019-12-29] MEDS ORDERED: INSU1INJ19 SC (01:03)
[2019-12-29] MEDS ORDERED: METO-75 PO (01:03)
[2019-12-29] MEDS ORDERED: METF-371 PO (01:03)
[2019-12-29] MEDS ORDERED: AMIO200T33 PO (01:03)
[2019-12-29] MEDS ORDERED: [UNRECOGNIZED DRUG - CODE] PO (01:03)
[2019-12-29] MEDS ORDERED: CIPR0.3S40 OP (01:03)
[2019-12-29] MEDS ORDERED: DICL1GEL35 TD (01:03)
[2019-12-29] MEDS ORDERED: POTA10TA79 PO (01:03)
[2019-12-29] MEDS ORDERED: TEMA15CA PO (01:03)
[2019-12-29 02:24] VITALS: BP 104/48
[2019-12-29 05:58] VITALS: BP 121/49
[2019-12-29] MEDS: methylPREDNISolone SOD SUCC 40 MG/ML VL IV SCH ×2 (06:00→18:05)
[2019-12-29] MEDS: FUROSEMIDE 100 MG/10ML VIAL IV SCH ×2 (06:00→18:05)
[2019-12-29] MEDS: ACCU-CHEK COMFORT CURVE STRIP VI SCH ×4 (06:01→22:00)
[2019-12-29] MEDS: InsuLIN REG 1unit/0.01ml Soln (100units/ml) SC SCH ×3 (06:06→15:54)
[2019-12-29] MEDS: INSULIN LANTUS (GLARGINE) 1 /0.01ml (100units/ml) SC SCH (06:12)
[2019-12-29] MEDS: ALBUTEROL SULF 2.5 MG/0.5ML(0.5%) NEB SOLN NEB SCH ×5 (07:34→18:26)
[2019-12-29] MEDS: IPRATROPIUM BROM 0.5 MG/2.5ML INH SOL NEB SCH ×4 (07:35→18:26)
[2019-12-29] MEDS: FERROUS SULFATE 325 MG TAB PO SCH ×2 (08:37→18:05)
[2019-12-29 09:00] VITALS: BP 122/54
[2019-12-29] MEDS ORDERED: PANTOPRAZOLE 40 MG TAB PO SCH (10:00)
[2019-12-29] MEDS ORDERED: ASPirin-EC 81 mg tab PO SCH (10:00)
[2019-12-29] MEDS: dilTIAZem 120MG ER CAP PO SCH (10:21)
[2019-12-29] MEDS: ZINC SULFATE 220mg CAP or TAB PO SCH (10:21)
[2019-12-29] MEDS: DULoxetine HCL 30 MG CAP PO SCH ×2 (10:22→23:21)
[2019-12-29] MEDS: lamoTRIgine 100 MG TAB PO SCH (10:22)
[2019-12-29] MEDS: AMIODARONE HCL 200 MG TAB PO SCH (10:22)
[2019-12-29] MEDS: POTASSIUM CHL 20 Meq TABLET PO SCH ×2 (10:22→23:21)
[2019-12-29] MEDS: ENALAPRIL MALEATE 2.5 MG TAB PO SCH (10:23)
[2019-12-29] MEDS: DIGOXIN 0.125 MG TAB PO SCH (10:23)
[2019-12-29] MEDS: ASCORBIC ACID 1,000 MG TAB PO SCH (10:24)
[2019-12-29] MEDS: CHOLECALCIFEROL (VITD3) 1,000IU=25mCg TAB PO SCH (10:24)
[2019-12-29] MEDS: PANTOPRAZOLE 40 MG TAB PO SCH ×2 (10:45→23:21)
[2019-12-29 11:38] LABS: BUN/Creatinine Ratio 21.1; Calcium 8.3 mg/dL (8.5-10.1); Potassium 4.3 mmol/L (3.5-5.1)
[2019-12-29] MEDS ORDERED: InsuLIN REG 1unit/0.01ml Soln (100units/ml) IV ONE (12:00)
[2019-12-29 12:02] LABS: Hemoglobin 7.4 g/dL (12.2-16.2)
[2019-12-29 12:04] LABS: Hematocrit 23.9 % (36.0-46.0)
[2019-12-29 13:00] VITALS: BP 128/96
[2019-12-29] MEDS: metroNIDAZOLE 500MG/100ML 100 ML IV SCH ×2 (14:45→23:23)
[2019-12-29] MEDS ORDERED: IPRATROPIUM BROM 0.5 MG/2.5ML INH SOL NEB PRN (15:00)
[2019-12-29] MEDS ORDERED: methylPREDNISolone SOD SUCC 125 MG/2 ML VL IV ONE (15:00)
[2019-12-29] MEDS ORDERED: ALBUTEROL SULF 2.5 MG/0.5ML(0.5%) NEB SOLN NEB PRN (15:00)
[2019-12-29 15:55] VITALS: BP 123/51
[2019-12-29 16:00] VITALS: BP 93/69
[2019-12-29] MEDS ORDERED: RIVAROXABAN 20 MG TAB PO SCH (18:00)
[2019-12-29] MEDS: levoFLOXacin 500MG 100 ML IV SCH (18:05)
[2019-12-29] MEDS: SUCRALFATE 1 GM/10 ML ORAL SUSP PO SCH ×2 (18:05→23:21)
[2019-12-29 18:38] LABS: Hematocrit 22.5 % (36.0-46.0); Hemoglobin 7.1 g/dL (12.2-16.2)
[2019-12-29] MEDS: MIRTAZAPINE 30 MG TAB PO SCH (22:00)
[2019-12-29] MEDS ORDERED: traZODone HCL 50 MG TAB PO PRN (22:30)
[2019-12-29] MEDS: DOCUSATE SOD 100 MG CAP PO SCH (23:20)
[2019-12-29] MEDS: ATORVASTATIN 20 MG TAB PO SCH (23:22)
[2019-12-30] VITALS (17 sets, daily range): BP systolic 94–127; BP diastolic 39–68
[2019-12-30] MEDS: InsuLIN REG 1unit/0.01ml Soln (100units/ml) SC SCH ×7 (00:08→23:35)
[2019-12-30] MEDS: INSULIN LANTUS (GLARGINE) 1 /0.01ml (100units/ml) SC SCH ×3 (00:11→23:38)
[2019-12-30] MEDS: IPRATROPIUM BROM 0.5 MG/2.5ML INH SOL NEB SCH ×4 (00:13→19:04)
[2019-12-30] MEDS: ALBUTEROL SULF 2.5 MG/0.5ML(0.5%) NEB SOLN NEB SCH ×4 (00:13→19:04)
[2019-12-30 00:42] LABS: Hematocrit 22.6 % (36.0-46.0)
[2019-12-30 00:50] LABS: Hemoglobin 6.8 g/dL (12.2-16.2)
[2019-12-30] MEDS: methylPREDNISolone SOD SUCC 40 MG/ML VL IV SCH ×4 (01:22→17:21)
[2019-12-30] MEDS ORDERED: diphenhdrAMINE HCL 12.5 MG/5 ML UD PO PRN (02:15)
[2019-12-30] MEDS ORDERED: diphenhdrAMINE HCL 25 MG CAP PO ONE (02:15)
[2019-12-30] MEDS ORDERED: ACETAMINOPHEN 325 MG TAB PO ONE (02:15)
[2019-12-30 03:26] LABS: Basophils # (auto) 0 10 ^3/uL (0-0.2); Eosinophils # (auto) 0 10 ^3/uL (0-0.8); Hematocrit 21.4 % (36.0-46.0); Lymphocytes # (auto) 0.8 10 ^3/uL (0.4-5.4); Lymphocytes % (auto) 6.5 % (10.0-50.0); Mean Corpuscular Hemoglobin 28.6 pg (28.0-32.0); Mean Corpuscular Hgb Conc. 30.8 g/dL (32.0-36.0); Mean Corpuscular Volume 92.9 fL (80.0-100.0); Monocytes # (auto) 0.3 10 ^3/uL (0-1.3); Monocytes % (auto) 2.6 % (0.0-12.0); Neutrophils # (auto) 11.1 10 ^3/uL (1.6-8.6); Neutrophils % (auto) 90.9 % (37.0-80.0); Nucleated Red Blood Cells % 0.5 %; Platelet Count (auto) 380 10^3/uL (140-450); White Blood Cell 12.2 10^3/uL (4.4-10.8)
[2019-12-30 03:27] LABS: Red Cell Distribution Width 22.4 % (11.8-14.3)
[2019-12-30 03:28] LABS: Hemoglobin 6.6 g/dL (12.2-16.2)
[2019-12-30 03:44] LABS: Calcium 8.1 mg/dL (8.5-10.1); Potassium 4.1 mmol/L (3.5-5.1)
[2019-12-30 03:47] LABS: Bilirubin, Total 0.3 mg/dL (0.2-1.0); Total Protein 6.3 g/dL (6.4-8.2)
[2019-12-30] MEDS: ACCU-CHEK COMFORT CURVE STRIP VI SCH ×6 (04:00→20:00)
[2019-12-30] MEDS: TEMAZEPAM 15 MG CAP PO PRN (04:32)
[2019-12-30] MEDS: metroNIDAZOLE 500MG/100ML 100 ML IV SCH ×4 (06:00→22:46)
[2019-12-30] MEDS: SUCRALFATE 1 GM/10 ML ORAL SUSP PO SCH ×4 (06:20→22:58)
[2019-12-30] MEDS: FUROSEMIDE 100 MG/10ML VIAL IV SCH ×2 (06:21→17:21)
[2019-12-30] MEDS: FERROUS SULFATE 325 MG TAB PO SCH ×2 (08:41→17:20)
[2019-12-30] MEDS: ROPINIROLE HYDROCHLORIDE 3 MG PO SCH ×3 (09:57→22:51)
[2019-12-30] MEDS: lamoTRIgine 100 MG TAB PO SCH (09:58)
[2019-12-30] MEDS: PANTOPRAZOLE 40 MG TAB PO SCH ×2 (09:59→22:47)
[2019-12-30] MEDS: DOCUSATE SOD 100 MG CAP PO SCH ×2 (09:59→22:00)
[2019-12-30] MEDS: AMIODARONE HCL 200 MG TAB PO SCH (10:00)
[2019-12-30] MEDS: dilTIAZem 120MG ER CAP PO SCH (10:01)
[2019-12-30] MEDS: DIGOXIN 0.125 MG TAB PO SCH (10:03)
[2019-12-30] MEDS: ENALAPRIL MALEATE 2.5 MG TAB PO SCH (10:03)
[2019-12-30] MEDS: DULoxetine HCL 30 MG CAP PO SCH ×2 (10:03→22:48)
[2019-12-30] MEDS: POTASSIUM CHL 20 Meq TABLET PO SCH ×2 (10:05→22:58)
[2019-12-30] MEDS: levoFLOXacin 500MG 100 ML IV SCH (17:21)
[2019-12-30] MEDS ORDERED: FURO80TA3 PO (17:47)
[2019-12-30] MEDS ORDERED: INSU1INJ26 SC (17:50)
[2019-12-30] MEDS ORDERED: CHOL500021 OR (17:57)
[2019-12-30] MEDS ORDERED: FERR-20 PO (17:58)
[2019-12-30] MEDS ORDERED: LIDO1PAD55 EX (18:02)
[2019-12-30] MEDS: MIRTAZAPINE 30 MG TAB PO SCH (22:47)
[2019-12-30] MEDS: ATORVASTATIN 20 MG TAB PO SCH (22:48)
[2019-12-31] MEDS: methylPREDNISolone SOD SUCC 40 MG/ML VL IV SCH ×4 (00:53→17:32)
[2019-12-31] MEDS: TEMAZEPAM 15 MG CAP PO PRN (01:01)
[2019-12-31] MEDS: InsuLIN REG 1unit/0.01ml Soln (100units/ml) SC SCH ×6 (01:05→20:22)
[2019-12-31] MEDS: ALBUTEROL SULF 2.5 MG/0.5ML(0.5%) NEB SOLN NEB SCH ×4 (01:05→18:52)
[2019-12-31] MEDS: IPRATROPIUM BROM 0.5 MG/2.5ML INH SOL NEB SCH ×4 (01:06→18:53)
[2019-12-31] MEDS: ACCU-CHEK COMFORT CURVE STRIP VI SCH ×6 (04:24→20:28)
[2019-12-31 05:00] VITALS: BP 128/75
[2019-12-31] MEDS: metroNIDAZOLE 500MG/100ML 100 ML IV SCH ×3 (05:48→21:14)
[2019-12-31] MEDS: FUROSEMIDE 100 MG/10ML VIAL IV SCH ×2 (05:49→17:34)
[2019-12-31] MEDS: ROPINIROLE HYDROCHLORIDE 3 MG PO SCH (05:58)
[2019-12-31 06:15] LABS: Basophils # (auto) 0 10 ^3/uL (0-0.2); Eosinophils # (auto) 0 10 ^3/uL (0-0.8); Monocytes # (auto) 0.4 10 ^3/uL (0-1.3); Neutrophils # (auto) 10.9 10 ^3/uL (1.6-8.6); Nucleated Red Blood Cells % 0.3 %; White Blood Cell 11.8 10^3/uL (4.4-10.8)
[2019-12-31 06:19] LABS: BUN/Creatinine Ratio 24.7; Potassium 3.6 mmol/L (3.5-5.1)
[2019-12-31 06:21] LABS: Hematocrit 28.3 % (36.0-46.0); Hemoglobin 8.8 g/dL (12.2-16.2); Lymphocytes # (auto) 0.5 10 ^3/uL (0.4-5.4); Lymphocytes % (auto) 4.5 % (10.0-50.0); Mean Corpuscular Hemoglobin 27.9 pg (28.0-32.0); Mean Corpuscular Hgb Conc. 31.1 g/dL (32.0-36.0); Mean Corpuscular Volume 89.8 fL (80.0-100.0); Monocytes % (auto) 3.2 % (0.0-12.0); Neutrophils % (auto) 92.3 % (37.0-80.0); Platelet Count (auto) 385 10^3/uL (140-450); Red Blood Cells 3.16 10^6/uL (4.0-5.20)
[2019-12-31] MEDS: SUCRALFATE 1 GM/10 ML ORAL SUSP PO SCH ×4 (06:28→21:15)
[2019-12-31] MEDS: INSULIN LANTUS (GLARGINE) 1 /0.01ml (100units/ml) SC SCH ×2 (06:31→22:46)
[2019-12-31 07:00] LABS: Red Cell Distribution Width 21.1 % (11.8-14.3)
[2019-12-31] MEDS: FERROUS SULFATE 325 MG TAB PO SCH ×2 (08:24→17:35)
[2019-12-31 08:37] VITALS: BP 118/58
[2019-12-31] MEDS: DULoxetine HCL 30 MG CAP PO SCH ×2 (10:31→21:13)
[2019-12-31] MEDS: DIGOXIN 0.125 MG TAB PO SCH (10:32)
[2019-12-31] MEDS: lamoTRIgine 100 MG TAB PO SCH (10:40)
[2019-12-31] MEDS: PANTOPRAZOLE 40 MG TAB PO SCH ×2 (10:40→21:11)
[2019-12-31] MEDS: AMIODARONE HCL 200 MG TAB PO SCH (10:40)
[2019-12-31] MEDS: POTASSIUM CHL 20 Meq TABLET PO SCH ×2 (10:41→21:12)
[2019-12-31] MEDS: dilTIAZem 120MG ER CAP PO SCH (10:41)
[2019-12-31] MEDS: DOCUSATE SOD 100 MG CAP PO SCH ×2 (10:50→21:14)
[2019-12-31] MEDS ORDERED: ACCU-CHEK COMFORT CURVE STRIP VI ONE (12:30)
[2019-12-31 12:52] VITALS: BP 133/73
[2019-12-31] MEDS: ROPINIROLE HYDROCHLORIDE PO SCH ×2 (14:00→22:00)
[2019-12-31 16:28] VITALS: BP 126/60
[2019-12-31] MEDS: levoFLOXacin 500MG 100 ML IV SCH (17:33)
[2019-12-31 19:45] VITALS: BP 126/80
[2019-12-31] MEDS: ATORVASTATIN 20 MG TAB PO SCH (21:12)
[2019-12-31] MEDS: MIRTAZAPINE 30 MG TAB PO SCH (21:16)
[2019-12-31] MEDS: METOPROLOL TARTRATE 25 MG TAB PO SCH (21:31)
[2019-12-31 21:49] VITALS: BP 139/90
[2020-01-01] VITALS: BP 132/89
[2020-01-01] MEDS: ACCU-CHEK COMFORT CURVE STRIP VI SCH ×6 (04:08→20:22)
[2020-01-01] MEDS: InsuLIN REG 1unit/0.01ml Soln (100units/ml) SC SCH ×6 (04:14→20:27)
[2020-01-01 05:09] VITALS: BP 124/66
[2020-01-01] MEDS: metroNIDAZOLE 500MG/100ML 100 ML IV SCH (05:45)
[2020-01-01] MEDS: methylPREDNISolone SOD SUCC 40 MG/ML VL IV SCH ×2 (05:46)
[2020-01-01] MEDS: FUROSEMIDE 100 MG/10ML VIAL IV SCH ×2 (05:47→18:21)
[2020-01-01] MEDS: ROPINIROLE HYDROCHLORIDE PO SCH ×3 (06:00→22:00)
[2020-01-01] MEDS: SUCRALFATE 1 GM/10 ML ORAL SUSP PO SCH ×4 (06:49→22:37)
[2020-01-01] MEDS: ALBUTEROL SULF 2.5 MG/0.5ML(0.5%) NEB SOLN NEB SCH ×4 (06:59→23:39)
[2020-01-01] MEDS: IPRATROPIUM BROM 0.5 MG/2.5ML INH SOL NEB SCH ×4 (06:59→23:39)
[2020-01-01] MEDS: INSULIN LANTUS (GLARGINE) 1 /0.01ml (100units/ml) SC SCH ×2 (07:13→22:34)
[2020-01-01] MEDS: FERROUS SULFATE 325 MG TAB PO SCH ×2 (07:47→18:19)
[2020-01-01 09:00] VITALS: BP 126/61
[2020-01-01] MEDS: DOCUSATE SOD 100 MG CAP PO SCH ×2 (10:00→22:37)
[2020-01-01] MEDS: dilTIAZem 120MG ER CAP PO SCH (10:18)
[2020-01-01] MEDS: DULoxetine HCL 30 MG CAP PO SCH ×2 (10:19→22:37)
[2020-01-01] MEDS: AMIODARONE HCL 200 MG TAB PO SCH (10:19)
[2020-01-01] MEDS: lamoTRIgine 100 MG TAB PO SCH (10:20)
[2020-01-01] MEDS: PANTOPRAZOLE 40 MG TAB PO SCH ×2 (10:21→22:39)
[2020-01-01] MEDS: POTASSIUM CHL 20 Meq TABLET PO SCH ×2 (10:21→22:38)
[2020-01-01] MEDS: DIGOXIN 0.125 MG TAB PO SCH (10:21)
[2020-01-01] MEDS: METOPROLOL TARTRATE 25 MG TAB PO SCH ×2 (10:22→22:39)
[2020-01-01 10:52] LABS: Basophils # (auto) 0 10 ^3/uL (0-0.2); Eosinophils # (auto) 0 10 ^3/uL (0-0.8); Hematocrit 31.9 % (36.0-46.0); Lymphocytes # (auto) 0.5 10 ^3/uL (0.4-5.4); Monocytes # (auto) 0.5 10 ^3/uL (0-1.3); Neutrophils # (auto) 9.8 10 ^3/uL (1.6-8.6); Neutrophils % (auto) 90.2 % (37.0-80.0); Red Blood Cells 3.55 10^6/uL (4.0-5.20); White Blood Cell 10.8 10^3/uL (4.4-10.8)
[2020-01-01 10:53] LABS: Basophils % (auto) 0.4 % (0.0-2.0); Lymphocytes % (auto) 4.3 % (10.0-50.0); Mean Corpuscular Hemoglobin 28.2 pg (28.0-32.0); Mean Corpuscular Hgb Conc. 31.4 g/dL (32.0-36.0); Mean Corpuscular Volume 89.8 fL (80.0-100.0); Monocytes % (auto) 5.1 % (0.0-12.0); Nucleated Red Blood Cells % 0.1 %; Platelet Count (auto) 458 10^3/uL (140-450); Red Cell Distribution Width 20.6 % (11.8-14.3)
[2020-01-01 11:11] LABS: Calcium 8.4 mg/dL (8.5-10.1); Potassium 3.4 mmol/L (3.5-5.1)
[2020-01-01 11:13] LABS: BUN/Creatinine Ratio 24.7
[2020-01-01] MEDS ORDERED: POTASSIUM EFFERVESENT TAB 25 MEQ PO ONE (12:15)
[2020-01-01 13:00] VITALS: BP 120/69
[2020-01-01 17:00] VITALS: BP_SYST 138; BP_SYST 169; BP_DIAS 63; BP_DIAS 82
[2020-01-01] MEDS: levoFLOXacin 500MG 100 ML IV SCH (18:19)
[2020-01-01] MEDS: ATORVASTATIN 20 MG TAB PO SCH (22:38)
[2020-01-01] MEDS: MIRTAZAPINE 30 MG TAB PO SCH (22:39)
[2020-01-01 23:07] VITALS: BP 111/61
[2020-01-01] MEDS: TEMAZEPAM 15 MG CAP PO PRN (23:28)
[2020-01-02] MEDS: ACCU-CHEK COMFORT CURVE STRIP VI SCH ×6 (00:09→20:00)
[2020-01-02] MEDS: InsuLIN REG 1unit/0.01ml Soln (100units/ml) SC SCH ×6 (00:11→20:00)
[2020-01-02 05:30] VITALS: BP 139/64
[2020-01-02] MEDS: ROPINIROLE HYDROCHLORIDE PO SCH ×3 (06:00→22:00)
[2020-01-02] MEDS: SUCRALFATE 1 GM/10 ML ORAL SUSP PO SCH ×4 (06:07→22:21)
[2020-01-02] MEDS: FUROSEMIDE 100 MG/10ML VIAL IV SCH ×2 (06:07→18:23)
[2020-01-02] MEDS: IPRATROPIUM BROM 0.5 MG/2.5ML INH SOL NEB SCH ×3 (06:37→19:23)
[2020-01-02] MEDS: ALBUTEROL SULF 2.5 MG/0.5ML(0.5%) NEB SOLN NEB SCH ×3 (06:37→19:23)
[2020-01-02] MEDS: INSULIN LANTUS (GLARGINE) 1 /0.01ml (100units/ml) SC SCH ×2 (06:39→22:22)
[2020-01-02] MEDS: FERROUS SULFATE 325 MG TAB PO SCH ×2 (07:59→18:22)
[2020-01-02] MEDS ORDERED: ACYCLOVIR 400 MG TAB PO ONE (08:45)
[2020-01-02 09:00] VITALS: BP 136/77
[2020-01-02] MEDS: PANTOPRAZOLE 40 MG TAB PO SCH ×2 (10:26→22:07)
[2020-01-02] MEDS: DOCUSATE SOD 100 MG CAP PO SCH ×2 (10:26→22:06)
[2020-01-02] MEDS: dilTIAZem 120MG ER CAP PO SCH (10:29)
[2020-01-02] MEDS: DIGOXIN 0.125 MG TAB PO SCH (10:30)
[2020-01-02] MEDS: DULoxetine HCL 30 MG CAP PO SCH ×2 (10:30→22:07)
[2020-01-02] MEDS: ACYCLOVIR 400 MG TAB PO SCH ×4 (10:30→22:07)
[2020-01-02] MEDS: POTASSIUM CHL 20 Meq TABLET PO SCH ×2 (10:31→22:07)
[2020-01-02] MEDS: AMIODARONE HCL 200 MG TAB PO SCH (10:31)
[2020-01-02] MEDS: METOPROLOL TARTRATE 25 MG TAB PO SCH ×2 (10:31→22:08)
[2020-01-02] MEDS: lamoTRIgine 100 MG TAB PO SCH (10:32)
[2020-01-02 13:07] VITALS: BP 129/53
[2020-01-02 17:00] VITALS: BP 130/60
[2020-01-02 22:00] VITALS: BP 137/90
[2020-01-02] MEDS: ATORVASTATIN 20 MG TAB PO SCH (22:06)
[2020-01-02] MEDS: MIRTAZAPINE 30 MG TAB PO SCH (22:07)
[2020-01-02] MEDS: TEMAZEPAM 15 MG CAP PO PRN (23:09)
[2020-01-03] MEDS: IPRATROPIUM BROM 0.5 MG/2.5ML INH SOL NEB SCH ×3 (00:15→12:40)
[2020-01-03] MEDS: ALBUTEROL SULF 2.5 MG/0.5ML(0.5%) NEB SOLN NEB SCH ×3 (00:15→12:40)
[2020-01-03] MEDS: ACCU-CHEK COMFORT CURVE STRIP VI SCH ×4 (00:16→11:40)
[2020-01-03] MEDS: InsuLIN REG 1unit/0.01ml Soln (100units/ml) SC SCH ×4 (00:19→12:23)
[2020-01-03 05:00] VITALS: BP 133/60
[2020-01-03] MEDS: ROPINIROLE HYDROCHLORIDE PO SCH ×2 (06:00→13:41)
[2020-01-03 06:26] LABS: Basophils # (auto) 0 10 ^3/uL (0-0.2); Hemoglobin 10.6 g/dL (12.2-16.2); Lymphocytes # (auto) 1.8 10 ^3/uL (0.4-5.4); Nucleated Red Blood Cells % 0.1 %
[2020-01-03 06:28] LABS: Eosinophils # (auto) 0.1 10 ^3/uL (0-0.8); Eosinophils % (auto) 1.4 % (0.0-7.0); Hematocrit 33.2 % (36.0-46.0); Lymphocytes % (auto) 17.1 % (10.0-50.0); Mean Corpuscular Hemoglobin 28.5 pg (28.0-32.0); Mean Corpuscular Hgb Conc. 31.9 g/dL (32.0-36.0); Mean Corpuscular Volume 89.3 fL (80.0-100.0); Monocytes # (auto) 1.3 10 ^3/uL (0-1.3); Monocytes % (auto) 12.7 % (0.0-12.0); Neutrophils # (auto) 7.1 10 ^3/uL (1.6-8.6); Neutrophils % (auto) 68.8 % (37.0-80.0); Platelet Count (auto) 511 10^3/uL (140-450); Red Blood Cells 3.72 10^6/uL (4.0-5.20); Red Cell Distribution Width 18.8 % (11.8-14.3); White Blood Cell 10.3 10^3/uL (4.4-10.8)
[2020-01-03 06:37] LABS: Calcium 8.9 mg/dL (8.5-10.1)
[2020-01-03 06:39] LABS: BUN/Creatinine Ratio 32.9
[2020-01-03 06:47] LABS: Potassium 2.9 mmol/L (3.5-5.1)
[2020-01-03] MEDS: INSULIN LANTUS (GLARGINE) 1 /0.01ml (100units/ml) SC SCH (06:48)
[2020-01-03] MEDS: ACYCLOVIR 400 MG TAB PO SCH ×3 (06:48→13:41)
[2020-01-03] MEDS: SUCRALFATE 1 GM/10 ML ORAL SUSP PO SCH ×2 (06:48→11:13)
[2020-01-03] MEDS: FUROSEMIDE 100 MG/10ML VIAL IV SCH (06:48)
[2020-01-03] MEDS ORDERED: POTASSIUM CHL 20 Meq TABLET PO ONE (07:15)
[2020-01-03] MEDS: FERROUS SULFATE 325 MG TAB PO SCH (08:00)
[2020-01-03 08:29] VITALS: BP 146/55
[2020-01-03] MEDS: DULoxetine HCL 30 MG CAP PO SCH (09:34)
[2020-01-03] MEDS: DOCUSATE SOD 100 MG CAP PO SCH (09:34)
[2020-01-03] MEDS: lamoTRIgine 100 MG TAB PO SCH (09:35)
[2020-01-03] MEDS: dilTIAZem 120MG ER CAP PO SCH (09:35)
[2020-01-03] MEDS: PANTOPRAZOLE 40 MG TAB PO SCH (09:36)
[2020-01-03] MEDS: DIGOXIN 0.125 MG TAB PO SCH (09:36)
[2020-01-03] MEDS: AMIODARONE HCL 200 MG TAB PO SCH (09:36)
[2020-01-03] MEDS: POTASSIUM CHL 20 Meq TABLET PO SCH (09:37)
[2020-01-03] MEDS: METOPROLOL TARTRATE 25 MG TAB PO SCH (09:37)
[2020-01-03] MEDS ORDERED: POTASSIUM EFFERVESENT TAB 25 MEQ PO ONE (09:45)
[2020-01-03] MEDS ORDERED: ACYC-161 PO (13:18)
[2020-01-03] MEDS ORDERED: POTA10TA79 PO (13:21)
[2020-01-03 13:52] VITALS: BP 146/55
[2020-01-20] MEDS ORDERED: POTA10TA79 PO (16:28)
== END 2020-01-03 14:40 | disposition home health service (06) | DRG 133 ==
LOC: ER 15:18 → EDBD 15:18 → TELE 15:19 → TELE-EAST 22:31 → TELE-WESTW 12-29 14:25 → DOU IN ICU 12-29 15:30 → TELE-EAST 12-30 19:47
PROVIDERS: ADMIT Internal Medicine; ATTEND Internal Medicine Nephrology
PROC: 5A09357 Assistance with Respiratory Ventilation, Less than 24 Consecutive Hours, Continuous Positive Airway Pressure (ICD-10-PCS; 2019-12-28)
PROC: 5A09357 Assistance with Respiratory Ventilation, Less than 24 Consecutive Hours, Continuous Positive Airway Pressure (ICD-10-PCS; 2019-12-29)
PROC: 30233N1 Transfusion of Nonautologous Red Blood Cells into Peripheral Vein, Percutaneous Approach (ICD-10-PCS; principal; 2019-12-30)
PROC: 5A09357 Assistance with Respiratory Ventilation, Less than 24 Consecutive Hours, Continuous Positive Airway Pressure (ICD-10-PCS; 2019-12-30)
PROC: 5A09357 Assistance with Respiratory Ventilation, Less than 24 Consecutive Hours, Continuous Positive Airway Pressure (ICD-10-PCS; 2019-12-31)
PROC: 5A09357 Assistance with Respiratory Ventilation, Less than 24 Consecutive Hours, Continuous Positive Airway Pressure (ICD-10-PCS; 2020-01-01)
PROC: 5A09357 Assistance with Respiratory Ventilation, Less than 24 Consecutive Hours, Continuous Positive Airway Pressure (ICD-10-PCS; 2020-01-02)
DX: J96.21 Acute and chronic respiratory failure with hypoxia (principal); I50.33 Acute on chronic diastolic (congestive) heart failure; E11.22 Type 2 diabetes mellitus with diabetic chronic kidney disease; E66.01 Morbid (severe) obesity due to excess calories; B00.89 Other herpesviral infection; I48.91 Unspecified atrial fibrillation; Z99.81 Dependence on supplemental oxygen; D50.0 Iron deficiency anemia secondary to blood loss (chronic); I13.0 Hypertensive heart and chronic kidney disease with heart failure and stage 1 through stage 4 chronic kidney disease, or unspecified chronic kidney disease; J44.1 Chronic obstructive pulmonary disease with (acute) exacerbation; K20.8 Other esophagitis; L03.311 Cellulitis of abdominal wall; G47.30 Sleep apnea, unspecified; F32.9 Major depressive disorder, single episode, unspecified; E78.5 Hyperlipidemia, unspecified; K62.5 Hemorrhage of anus and rectum; K44.9 Diaphragmatic hernia without obstruction or gangrene; K20.9 Esophagitis, unspecified; D63.8 Anemia in other chronic diseases classified elsewhere; G47.33 Obstructive sleep apnea (adult) (pediatric); J96.22 Acute and chronic respiratory failure with hypercapnia; K64.4 Residual hemorrhoidal skin tags; Z68.43 Body mass index [BMI] 50.0-59.9, adult; Z90.49 Acquired absence of other specified parts of digestive tract; Z98.51 Tubal ligation status; Z83.3 Family history of diabetes mellitus; Z80.0 Family history of malignant neoplasm of digestive organs; Z82.49 Family history of ischemic heart disease and other diseases of the circulatory system; Z83.511 Family history of glaucoma; Z87.891 Personal history of nicotine dependence; Z81.8 Family history of other mental and behavioral disorders; Z88.8 Allergy status to other drugs, medicaments and biological substances; Z88.2 Allergy status to sulfonamides; Z79.899 Other long term (current) drug therapy; Z79.84 Long term (current) use of oral hypoglycemic drugs; Z79.4 Long term (current) use of insulin; Z79.82 Long term (current) use of aspirin; Z20.828 Contact with and (suspected) exposure to other viral communicable diseases; N18.3 Chronic kidney disease, stage 3 (moderate)
CPT/HCPCS: 36415; 36600; 71045; 80048; 80053; 81001; 82270; 82378; 82550; 82805; 82962; 83735; 83880; 84132; 84443; 84484; 85014; 85018; 85025; 85045; 86850; 86900; 86901; 86920; 87070; 87081; 87205; 87804; 87880; 93005; 94640; 94660; G0378; J1815; J1956; J3490; J7060

== ENCOUNTER 2020-01-17 20:32 | Inpatient (IN) | payer MEDICAID ==
[~2020-01-17] VITALS: Ht 157.5 cm; Wt 148.3 kg
[~2020-01-17 20:32] MED LIST changes: +ACYC-161 PO; +AMIO200T33 PO; -AMIO200T43 PO; +CHOL500021 OR; -CLIN150C PO; -CYAN1TAB14 PO; +DICL1GEL50 TD; -DIGO0.12 PO; -FER325T PO; +FERR-20 PO; -FURO1TAB31 PO; +FURO80TA3 PO; +INSU1INJ19 SC; -IPRAAER6 IN; -LEVO-28 PO; -METF-371 PO; -PANT40TA2 PO; +POTA10TA32 PO; -POTA10TA79 PO; -RIVA20TA PO
[2020-01-17] MEDS ORDERED: methylPREDNISolone SOD SUCC 125 MG/2 ML VL IV ONE (20:45)
[2020-01-17 21:50] LABS: Basophils # (auto) 0.1 10 ^3/uL (0-0.2); Basophils % (auto) 0.6 % (0.0-2.0); Eosinophils # (auto) 0.3 10 ^3/uL (0-0.8); Lymphocytes # (auto) 1.6 10 ^3/uL (0.4-5.4); Lymphocytes % (auto) 14.9 % (10.0-50.0); Monocytes # (auto) 1.1 10 ^3/uL (0-1.3); Platelet Count (auto) 249 10^3/uL (140-450)
[2020-01-17 21:53] LABS: Eosinophils % (auto) 2.4 % (0.0-7.0); Hematocrit 32.7 % (36.0-46.0); Mean Corpuscular Hemoglobin 28.7 pg (28.0-32.0); Mean Corpuscular Hgb Conc. 30.6 g/dL (32.0-36.0); Monocytes % (auto) 10.4 % (0.0-12.0); Neutrophils # (auto) 7.9 10 ^3/uL (1.6-8.6); Neutrophils % (auto) 71.7 % (37.0-80.0); Nucleated Red Blood Cells % 0.1 %; Red Blood Cells 3.48 10^6/uL (4.0-5.20); Red Cell Distribution Width 19.3 % (11.8-14.3)
[2020-01-17 22:17] LABS: Albumin 3.3 g/dL (3.4-5.0); Calcium 8.7 mg/dL (8.5-10.1); Magnesium 2.4 mg/dL (1.6-2.6); Potassium 4.4 mmol/L (3.5-5.1)
[2020-01-17 22:24] LABS: Bilirubin, Total 0.5 mg/dL (0.2-1.0); Total Protein 6.8 g/dL (6.4-8.2)
[2020-01-18] VITALS (7 sets, daily range): BP systolic 106–185; BP diastolic 44–86
[2020-01-18] MEDS ORDERED: SODIUM CHLORIDE 0.9% 1,000 ML IV SCH (02:23)
[2020-01-18] MEDS ORDERED: ACETAMINOPHEN 325 MG TAB PO PRN (02:30)
[2020-01-18] MEDS ORDERED: ONDANSETRON HCL 4 MG/2 ML VIAL IV PRN (02:30)
[2020-01-18] MEDS ORDERED: HYDROcodone-ACET 5/325MG TAB PO PRN (02:30)
[2020-01-18] MEDS ORDERED: DOCUSATE SOD 100 MG CAP PO PRN (02:30)
[2020-01-18 03:49] LABS: Urine Bacteria FEW /hpf (None Seen); Urine Blood Negative /uL (Negative); Urine Specific Gravity 1.026 (1.001-1.035); Urine WBC 2 /hpf (0 - 5)
--- NOTE | 2020-01-18 04:00 | NUR ---
Telemetry admit from ER FRANSISCO WILSON admitted to Telemetry unit no SBAR received. Patient oriented to Yamile Chan primary RN, unit, room, bed, and unit policies regarding patient care and visiting hours. Patient now on continuous telemetry monitoring, tele box # 67 and telemetry reading on arrival to unit is NSR in the 90s. Patient placed on Bipap, weighed by bedscale and encouraged to call if they need something. All questions and concerns addressed, patient verbalized understanding.
[2020-01-18] MEDS: IPRATROPIUM BROM 0.5 MG/2.5ML INH SOL NEB PRN ×2 (05:45→10:37)
[2020-01-18] MEDS: ALBUTEROL SULF 2.5 MG/0.5ML(0.5%) NEB SOLN NEB PRN ×3 (05:46→14:17)
--- NOTE | 2020-01-18 07:05 | NUR ---
OPENING SHIFT NOTE Assumed care of patient from manufacturing shift supervisor RN. Patient is alert and oriented x4, no signs of distress noted. Commode noted at bedside. Patient was updated on the plan of care and verbalized understanding. Bed is locked, in the lowest position, side rails up x2 and call light is in reach. Patient was encouraged to call for assistance as needed.
[2020-01-18] MEDS: FERROUS SULFATE 325 MG TAB PO SCH ×2 (08:04→17:53)
[2020-01-18] MEDS: ROPINIROLE PO SCH ×3 (08:04→22:00)
[2020-01-18] MEDS: CHOLECALCIFEROL (VITD3) 1,000UNIT=25mCg TAB PO SCH (09:33)
[2020-01-18] MEDS: ASPirin-EC 81 mg tab PO SCH (09:33)
[2020-01-18] MEDS: ATORVASTATIN 20 MG TAB PO SCH (09:33)
[2020-01-18] MEDS: lamoTRIgine 100 MG TAB PO SCH (09:34)
[2020-01-18] MEDS: DULoxetine HCL 30 MG CAP PO SCH ×2 (09:35→22:10)
[2020-01-18] MEDS: dilTIAZem 120MG ER CAP PO SCH (09:36)
[2020-01-18] MEDS: OMEPRAZOLE 20MG/10ML ORAL SUSP PO SCH (09:48)
[2020-01-18] MEDS: AMIODARONE HCL 200 MG TAB PO SCH ×2 (09:48→22:10)
[2020-01-18] MEDS ORDERED: cefTRIAXone 1GM/50ML D5W 50 ML IV SCH (10:00)
[2020-01-18] MEDS ORDERED: methylPREDNISolone SOD SUCC 125 MG/2 ML VL IV SCH (10:00)
[2020-01-18] MEDS ORDERED: POTASSIUM CHL 20 Meq TABLET PO SCH (10:00)
[2020-01-18] MEDS ORDERED: FUROSEMIDE 40 MG TAB PO SCH (10:00)
--- NOTE | 2020-01-18 10:02 | NUR ---
CALL FROM [facility] Spoke to Tomeka, updated on patient status. Phone #: .
--- NOTE | 2020-01-18 10:55 | NUR ---
WOUND CARE NOTE: WOUND CONSULT ORDERED FOR PATIENT WITH SKIN INTEGRITY ISSUE TO BLE. WOUND PHOTOS TAKEN AT TIME OF ADMIT, BY BEDSIDE NURSE FOR REFERENCE. PATIENT ADMITTED TO [facility] WITH DIAGNOSIS OF ACUTE ON CHRONIC COPD. CURRENT CECILIA SCORE IS 17. PATIENT IS ABLE TO SELF TURN/REPOSITION SELF, GET UP OUT OF BED TO GO TO COMMODE/CHAIR. SHE IS OBESE, WEIGHING 148.32 KG. PATIENT HAS WHAT APPEARS TO BE CHRONIC EDEMA/ERYTHEMA, HYPERKERATOSIS TO BILATERAL THACKER/CALF. NO OPEN OR DRAINING WOUNDS NOTED. NO NEED FOR DRESSINGS. RECOMMEND: SKIN/WOUND CARE PLAN FOR CECILIA SCORE BELOW 19, ELEVATION OF BLE UP ONTO PILLOWS FOR EDEMA CONTROL. NO WOUND CARE MONITORING NEEDED AT THIS TIME.
[2020-01-18 11:03] LABS: Basophils # (auto) 0 10 ^3/uL (0-0.2); Basophils % (auto) 0.1 % (0.0-2.0); Eosinophils # (auto) 0 10 ^3/uL (0-0.8); Hemoglobin 10.6 g/dL (12.2-16.2); Lymphocytes # (auto) 0.7 10 ^3/uL (0.4-5.4); Mean Corpuscular Hgb Conc. 29.9 g/dL (32.0-36.0); Monocytes # (auto) 0.1 10 ^3/uL (0-1.3); Nucleated Red Blood Cells % 0.1 %
[2020-01-18 11:05] LABS: Hematocrit 35.3 % (36.0-46.0); Lymphocytes % (auto) 5.6 % (10.0-50.0); Mean Corpuscular Hemoglobin 28.5 pg (28.0-32.0); Mean Corpuscular Volume 95.3 fL (80.0-100.0); Monocytes % (auto) 0.8 % (0.0-12.0); Neutrophils # (auto) 10.9 10 ^3/uL (1.6-8.6); Neutrophils % (auto) 93.5 % (37.0-80.0); Platelet Count (auto) 294 10^3/uL (140-450); Red Blood Cells 3.71 10^6/uL (4.0-5.20); Red Cell Distribution Width 19.4 % (11.8-14.3); White Blood Cell 11.7 10^3/uL (4.4-10.8)
--- NOTE | 2020-01-18 11:15 | NUR ---
WOUND CARE AT BEDSIDE Per Rosibel transit operator, elevate legs when patient is in bed.
[2020-01-18 12:24] LABS: Calcium 8.7 mg/dL (8.5-10.1)
--- NOTE | 2020-01-18 12:24 | NUR ---
CALL FROM LAB, CRITICAL BLOOD GLUCOSE 520
--- NOTE | 2020-01-18 12:38 | NUR ---
BLOOD SUGAR 555 PATIENT IS ASYMPTOMATIC, WILL INFORM MD.
[2020-01-18 12:42] LABS: BUN/Creatinine Ratio 15.7
--- NOTE | 2020-01-18 12:43 | NUR ---
JIM AWARE OF BLOOD GLUCOSE stated he will see the patient next.
--- NOTE | 2020-01-18 13:05 | NUR ---
JIM AT BEDSIDE updated on patient status, plan of care discussed with the patient and she verbalized understanding. New orders to insert weber catheter.
[2020-01-18] MEDS ORDERED: FUROSEMIDE 40 MG/4 ML VIAL IV ONE (13:15)
[2020-01-18] MEDS ORDERED: DEXTROSE (50%) 50ML SYRG IV PRN ×2 (13:15→17:45)
[2020-01-18] MEDS ORDERED: POTASSIUM CHL 20 Meq TABLET PO ONE (13:15)
--- NOTE | 2020-01-18 13:21 | NUR ---
Weber catheter insertion Patient assessed and determined to be in need of weber catheter. Order obtained from MD. Patient educated on catheter and reason for insertion. All questions answered. Weber catheter 16 gauge German inserted with clean sterile technique. Patient tolerated well.
[2020-01-18] MEDS ORDERED: InsuLIN REG 1unit/0.01ml Soln (100units/ml) SC SCH ×2 (13:30→22:00)
[2020-01-18] MEDS: ceFAZolin 1GM/50ML 50 ML IV SCH ×2 (13:48→22:09)
--- NOTE | 2020-01-18 14:27 | NUR ---
Nutrition Consult Est energy needs 4680-3931 kcal (11-14 kcal/kg BW 148.325kg) Est protein needs 100-125g (2-2.5g/kg IBW 50kg) Will reassess prn. Addendum: 01/18/20 at [address] Amended: Links added.
[2020-01-18] MEDS ORDERED: ACCU-CHEK COMFORT CURVE STRIP VI SCH (17:00)
--- NOTE | 2020-01-18 17:30 | NUR ---
BLOOD GLUCOSE >600 HOSPITALIST PAGED NEW ORDER FROM DANIELLE BASS. NEW ORDERS FOR ACCUCHECK Q4H, AGGRESSIVE SCALE.
[2020-01-18] MEDS: ACCU-CHEK COMFORT CURVE STRIP VI SCH ×2 (17:52→19:57)
[2020-01-18] MEDS: InsuLIN REG 1unit/0.01ml Soln (100units/ml) SC SCH ×2 (17:53→20:28)
[2020-01-18] MEDS: FUROSEMIDE 40 MG/4 ML VIAL IV SCH (17:53)
[2020-01-18] MEDS: IPRATROPIUM BROM 0.5 MG/2.5ML INH SOL NEB SCH (18:05)
[2020-01-18] MEDS: ALBUTEROL SULF 2.5 MG/0.5ML(0.5%) NEB SOLN NEB SCH (18:05)
[2020-01-18] MEDS: BUDESONIDE (INHALATION) 0.5 MG/2 ML NEB NEB SCH (18:05)
--- NOTE | 2020-01-18 19:16 | NUR ---
OPENING SHIFT NOTE Assumed care of patient from day shift RN. Patient is awake, alert, and oriented x 4. No signs of respiratory distress noted. Respirations are regular and non-labored. No pain, nausea, or vomiting reported at this time. Bed is locked, in the lowest position, side rails up x 2, and call light is in reach. Bed commode at bedside. Gibbons is intact and patent. Patient is on 3 LPM O2 NC. Patient was updated on the plan of care and verbalized understanding. Patient was encouraged to call for assistance as needed. Will monitor Q1H or/and PRN.
--- NOTE | 2020-01-18 20:00 | NUR ---
BLOOD GLUCOSE > 600 mg/Dl HOSPITALIST PAGED
--- NOTE | 2020-01-18 22:01 | NUR ---
Spoke to hospitalist regarding high blood sugar level > 600 mg/Dl. Orders received, verified, read back.
[2020-01-18] MEDS: POTASSIUM CHL 20 Meq TABLET PO SCH (22:11)
[2020-01-18] MEDS ORDERED: InsuLIN REG 1unit/0.01ml Soln (100units/ml) SC ONE (22:15)
[2020-01-18] MEDS: SODIUM CHLORIDE 0.9% 1,000 ML IV SCH (23:17)
[2020-01-18] MEDS: INSULIN LANTUS (GLARGINE) 1 /0.01ml (100units/ml) SC SCH (23:27)
[2020-01-19] MEDS: ACCU-CHEK COMFORT CURVE STRIP VI SCH ×6 (00:12→20:08)
[2020-01-19] MEDS: InsuLIN REG 1unit/0.01ml Soln (100units/ml) SC SCH ×6 (00:16→20:03)
--- NOTE | 2020-01-19 04:05 | NUR ---
Respiratory note: PT TAKEN OFF BIPAP AT THIS TIME PER PT REQUEST. PT PLACED BACK ON 3L NASAL CANNULA.
[2020-01-19 05:00] VITALS: BP 130/63
[2020-01-19] MEDS: ROPINIROLE PO SCH ×3 (05:55→21:48)
[2020-01-19] MEDS: FUROSEMIDE 40 MG/4 ML VIAL IV SCH ×2 (06:09→17:51)
[2020-01-19] MEDS: ceFAZolin 1GM/50ML 50 ML IV SCH ×3 (06:09→21:47)
[2020-01-19 06:31] LABS: Potassium 3.8 mmol/L (3.5-5.1)
[2020-01-19 06:34] LABS: BUN/Creatinine Ratio 22.6; Calcium 8.7 mg/dL (8.5-10.1)
[2020-01-19] MEDS: ALBUTEROL SULF 2.5 MG/0.5ML(0.5%) NEB SOLN NEB SCH ×3 (06:43→19:12)
[2020-01-19] MEDS: IPRATROPIUM BROM 0.5 MG/2.5ML INH SOL NEB SCH ×3 (06:43→19:11)
[2020-01-19] MEDS: BUDESONIDE (INHALATION) 0.5 MG/2 ML NEB NEB SCH ×2 (06:43→19:12)
--- NOTE | 2020-01-19 07:10 | NUR ---
OPENING SHIFT NOTE Assumed care of patient from assembler 1st shift RN. Patient is alert and oriented x4, no signs of distress noted. Commode noted at bedside. Patient has a weber draining clear yellow urine to gravity, no kinks or loops noted in the tubing. Patient was updated on the plan of care and verbalized understanding. Bed is locked, in the lowest position, side rails up x2 and call light is in reach. Patient was encouraged to call for assistance as needed.
[2020-01-19] MEDS: FERROUS SULFATE 325 MG TAB PO SCH ×2 (07:56→17:51)
[2020-01-19 09:00] VITALS: BP 160/70
[2020-01-19] MEDS: OMEPRAZOLE 20MG/10ML ORAL SUSP PO SCH (10:00)
[2020-01-19] MEDS: AMIODARONE HCL 200 MG TAB PO SCH ×2 (10:20→21:48)
[2020-01-19] MEDS: dilTIAZem 120MG ER CAP PO SCH (10:20)
[2020-01-19] MEDS: lamoTRIgine 100 MG TAB PO SCH (10:21)
[2020-01-19] MEDS: CHOLECALCIFEROL (VITD3) 1,000UNIT=25mCg TAB PO SCH (10:21)
[2020-01-19] MEDS: POTASSIUM CHL 20 Meq TABLET PO SCH ×2 (10:21→21:49)
[2020-01-19] MEDS: ATORVASTATIN 20 MG TAB PO SCH (10:21)
[2020-01-19] MEDS: ASPirin-EC 81 mg tab PO SCH (10:21)
[2020-01-19] MEDS: DULoxetine HCL 30 MG CAP PO SCH ×2 (10:21→21:48)
[2020-01-19] MEDS: INSULIN LANTUS (GLARGINE) 1 /0.01ml (100units/ml) SC SCH ×2 (10:24→21:43)
--- NOTE | 2020-01-19 10:53 | NUR ---
IV insertion IV access obtained, via clean sterile technique by inserting 20 gauge catheter at LEFT ABDOMEN after 1 attempt. IV secured properly. No trauma to site. IV to the right wrist discontinued with clean technique and pressure dressing applied. Patient tolerated well.
[2020-01-19] MEDS: SODIUM CHLORIDE 0.9% 1,000 ML IV SCH (11:32)
[2020-01-19 12:31] VITALS: BP 125/54
--- NOTE | 2020-01-19 12:58 | NUR ---
CALL FROM [facility] ROSENDO Eckert called for an update on the patient. She was updated on the patients status. I informed her I would update her on the plan of care after MD rounds have been done. Phone #:
[2020-01-19 16:42] VITALS: BP 136/59
[2020-01-19] MEDS: PANTOPRAZOLE 40 MG TAB PO SCH (16:46)
[2020-01-19] MEDS: Glucerna Carbsteady SHAKE Vanilla 8oz PO SCH (18:19)
--- NOTE | 2020-01-19 19:10 | NUR ---
Opening Shift Note Assumed care of patient, awake and alert. No S/S of distress/SOB or pain. Patient eating dinner. Instructed on POC and to call for assist PRN, will continue to monitor for changes Q1hr and PRN.
[2020-01-19 20:00] VITALS: BP 140/54
[2020-01-19] MEDS: TEMAZEPAM 15 MG CAP PO PRN (21:50)
[2020-01-19 22:00] VITALS: BP 140/54
[2020-01-20] MEDS: ACCU-CHEK COMFORT CURVE STRIP VI SCH ×6 (00:14→20:45)
[2020-01-20] MEDS: InsuLIN REG 1unit/0.01ml Soln (100units/ml) SC SCH ×6 (00:16→20:42)
--- NOTE | 2020-01-20 00:40 | NUR ---
Respiratory note: PLACED PT ON BIPAP ON ORDERED SETTINGS, BIPAP CONNECTED TO RED OUTLET AND O2 SOURCE. ALARMS ARE SET AND AUDIBLE. AMBU BAG AND MASK AT BEDSIDE. PLACED ON SIZE MEDIUM FACE MASK. NO BREAKDOWN NOTED PRIOR TO PLACEMENT. BS ARE DIMINISHED CLEAR T/O. PT AWARE I CAN BE PAGED IF NEEDED. RN DAREN AWARE OF PLACEMENT. WILL CONTINUE TO MONITOR Q2H.
[2020-01-20] MEDS: SODIUM CHLORIDE 0.9% 1,000 ML IV SCH (00:51)
--- NOTE | 2020-01-20 02:35 | NUR ---
Respiratory note: AT BEDSIDE FOR ROUTINE BIPAP CHECK. NO CHANGES MADE. PT COMFORTABLY SLEEPING. WILL CONTINUE TO MONITOR.
--- NOTE | 2020-01-20 04:20 | NUR ---
Respiratory note: AT BEDSIDE FOR END OF SHIFT BIPAP CHECK. MASK READJUSTED TO ACHIEVE ACCEPTABLE LEAK. NO CHANGES MADE. PT COMFORTABLY SLEEPING. WILL HAVE DAY SHIFT RT CONTINUE POC.
--- NOTE | 2020-01-20 04:54 | NUR ---
Respiratory note: PAGED TO BEDSIDE. PT REQUESTING BIPAP OFF. PLACED PT ON 3LPM NC.
[2020-01-20 05:00] VITALS: BP 121/62
[2020-01-20] MEDS: ROPINIROLE PO SCH ×3 (05:58→22:00)
[2020-01-20] MEDS: ceFAZolin 1GM/50ML 50 ML IV SCH (05:58)
[2020-01-20] MEDS: FUROSEMIDE 40 MG/4 ML VIAL IV SCH ×2 (05:58→17:46)
[2020-01-20 06:20] LABS: Potassium 3.3 mmol/L (3.5-5.1)
[2020-01-20 06:23] LABS: BUN/Creatinine Ratio 22.7; Basophils # (auto) 0 10 ^3/uL (0-0.2); Basophils % (auto) 0.5 % (0.0-2.0); Calcium 8.8 mg/dL (8.5-10.1); Eosinophils # (auto) 0.1 10 ^3/uL (0-0.8); Eosinophils % (auto) 1.5 % (0.0-7.0); Hematocrit 31.6 % (36.0-46.0); Hemoglobin 9.9 g/dL (12.2-16.2); Lymphocytes # (auto) 2.2 10 ^3/uL (0.4-5.4); Lymphocytes % (auto) 23.1 % (10.0-50.0); Mean Corpuscular Hemoglobin 28.8 pg (28.0-32.0); Mean Corpuscular Hgb Conc. 31.3 g/dL (32.0-36.0); Monocytes % (auto) 10.9 % (0.0-12.0); Nucleated Red Blood Cells % 0.2 %; Platelet Count (auto) 303 10^3/uL (140-450); Red Blood Cells 3.43 10^6/uL (4.0-5.20); Red Cell Distribution Width 19.9 % (11.8-14.3); White Blood Cell 9.4 10^3/uL (4.4-10.8)
--- NOTE | 2020-01-20 06:58 | NUR ---
RECEIVED PT OFF BIPAP AND ON 4LNC, SPO2 97%, HR 77, RR 24. PT STATES HER BREATHING IS A LITTLE HARDER TODAY. HOWEVER, PT STATES SHE IS FINE OFF THE BIPAP FOR NOW. PT AWARE TO HAVE THIS RT PAGED IF SOB OCCURS OR IF SHE WOULD LIKE TO GO ON BIPAP WHICH IS AT BEDSIDE. WILL CONTINUE TO MONITOR.
[2020-01-20] MEDS: ALBUTEROL SULF 2.5 MG/0.5ML(0.5%) NEB SOLN NEB SCH ×3 (07:00→18:51)
[2020-01-20] MEDS: IPRATROPIUM BROM 0.5 MG/2.5ML INH SOL NEB SCH ×3 (07:00→18:51)
[2020-01-20] MEDS: BUDESONIDE (INHALATION) 0.5 MG/2 ML NEB NEB SCH ×2 (07:00→18:49)
--- NOTE | 2020-01-20 07:10 | NUR ---
Closing Note Patient status unchanged, endorsed care to dayshift nurse.
--- NOTE | 2020-01-20 07:30 | NUR ---
RECEIVED REPORT FROM NIGHT NURSE. PATENT RESTING IN BED, NO DISTRESS NOTED. WILL CONTINUE TO MONITOR.
[2020-01-20 09:00] VITALS: BP 132/73
--- NOTE | 2020-01-20 09:30 | NUR ---
[facility] SPOKE WITH MILES FROM [facility] [phone]. SHE STATED THAT THE PATIENT IN ON SERVICE WITH THEM AND TO FOLLOW UP WITH THEM IF THE PATIENT IS DISCHARGED.
[2020-01-20] MEDS: ATORVASTATIN 20 MG TAB PO SCH (10:26)
[2020-01-20] MEDS: dilTIAZem 120MG ER CAP PO SCH (10:27)
[2020-01-20] MEDS: lamoTRIgine 100 MG TAB PO SCH (10:27)
[2020-01-20] MEDS: AMIODARONE HCL 200 MG TAB PO SCH ×2 (10:27→22:11)
[2020-01-20] MEDS: DULoxetine HCL 30 MG CAP PO SCH ×2 (10:28→22:12)
[2020-01-20] MEDS: PANTOPRAZOLE 40 MG TAB PO SCH (10:28)
[2020-01-20] MEDS: POTASSIUM CHL 20 Meq TABLET PO SCH ×2 (10:28→22:12)
[2020-01-20] MEDS: ASPirin-EC 81 mg tab PO SCH (10:28)
[2020-01-20] MEDS: CHOLECALCIFEROL (VITD3) 1,000UNIT=25mCg TAB PO SCH (10:28)
[2020-01-20] MEDS: FERROUS SULFATE 325 MG TAB PO SCH ×2 (10:29→17:46)
[2020-01-20] MEDS: Glucerna Carbsteady SHAKE Vanilla 8oz PO SCH ×3 (10:29→17:46)
[2020-01-20] MEDS: INSULIN LANTUS (GLARGINE) 1 /0.01ml (100units/ml) SC SCH ×2 (10:34→22:12)
--- NOTE | 2020-01-20 12:22 | NUR ---
DOCTOR FERNANDEZ AT BEDSIDE.
[2020-01-20] MEDS ORDERED: POTASSIUM CHL 20 Meq TABLET PO ONE (12:30)
[2020-01-20 13:00] VITALS: BP_SYST 144; BP_SYST 154; BP_DIAS 70; BP_DIAS 71
[2020-01-20] MEDS ORDERED: POTA10TA32 PO (16:28)
[2020-01-20 17:00] VITALS: BP 146/68
[2020-01-20] MEDS: CEPHALEXIN 250 MG CAP PO SCH (17:47)
[2020-01-20 22:00] VITALS: BP 140/56
[2020-01-20] MEDS: TEMAZEPAM 15 MG CAP PO PRN (22:14)
[2020-01-21] VITALS (7 sets, daily range): BP systolic 125–140; BP diastolic 55–58
--- NOTE | 2020-01-21 | NUR ---
BIPAP Patient ask to be put on the bipap. RT paged.
[2020-01-21] MEDS: ACCU-CHEK COMFORT CURVE STRIP VI SCH ×4 (00:26→12:11)
[2020-01-21] MEDS: CEPHALEXIN 250 MG CAP PO SCH ×3 (00:26→12:11)
[2020-01-21] MEDS: InsuLIN REG 1unit/0.01ml Soln (100units/ml) SC SCH ×4 (00:26→12:12)
[2020-01-21] MEDS: ALBUTEROL SULF 2.5 MG/0.5ML(0.5%) NEB SOLN NEB PRN (00:37)
[2020-01-21] MEDS: ROPINIROLE PO SCH ×2 (05:17→14:00)
[2020-01-21] MEDS: FUROSEMIDE 40 MG/4 ML VIAL IV SCH (05:17)
[2020-01-21 06:00] LABS: BUN/Creatinine Ratio 18.6; Calcium 8.8 mg/dL (8.5-10.1); Potassium 3.7 mmol/L (3.5-5.1)
[2020-01-21] MEDS: IPRATROPIUM BROM 0.5 MG/2.5ML INH SOL NEB SCH ×2 (07:04→12:15)
[2020-01-21] MEDS: ALBUTEROL SULF 2.5 MG/0.5ML(0.5%) NEB SOLN NEB SCH ×2 (07:04→12:15)
--- NOTE | 2020-01-21 07:26 | NUR ---
Closing Note Patient status unchanged, endorsed care to dayshift nurse.
[2020-01-21] MEDS: FERROUS SULFATE 325 MG TAB PO SCH (08:20)
[2020-01-21] MEDS: Glucerna Carbsteady SHAKE Vanilla 8oz PO SCH ×2 (08:21→12:00)
[2020-01-21] MEDS: dilTIAZem 120MG ER CAP PO SCH (09:54)
[2020-01-21] MEDS: AMIODARONE HCL 200 MG TAB PO SCH (09:54)
[2020-01-21] MEDS: ASPirin-EC 81 mg tab PO SCH (09:55)
[2020-01-21] MEDS: DULoxetine HCL 30 MG CAP PO SCH (09:55)
[2020-01-21] MEDS: POTASSIUM CHL 20 Meq TABLET PO SCH (09:55)
[2020-01-21] MEDS: lamoTRIgine 100 MG TAB PO SCH (09:56)
[2020-01-21] MEDS: ATORVASTATIN 20 MG TAB PO SCH (09:57)
[2020-01-21] MEDS: CHOLECALCIFEROL (VITD3) 1,000UNIT=25mCg TAB PO SCH (09:57)
[2020-01-21] MEDS: PANTOPRAZOLE 40 MG TAB PO SCH (09:57)
[2020-01-21] MEDS: INSULIN LANTUS (GLARGINE) 1 /0.01ml (100units/ml) SC SCH (10:02)
[2020-01-21] MEDS: BUDESONIDE (INHALATION) 0.5 MG/2 ML NEB NEB SCH (10:04)
--- NOTE | 2020-01-21 11:09 | NUR ---
[facility]TE[facility] CATHETER DISCONTINUED
--- NOTE | 2020-01-21 15:13 | NUR ---
patient discharged home with transport to hospice. all iv access discontinued. telemetry box removed and returned to telemetry department. all discharge instructions given. all discharge paperwork signed.
--- NOTE | 2020-01-21 15:16 | NUR ---
1520 01/21/20 - Faxed to [facility] at [phone] face sheet, order to resume hospice, and H/P. Contacted [facility] at [phone] who confirmed receipt of all faxed clinicals.
== END 2020-01-21 15:15 | disposition hospice, home (50) | DRG 140 ==
LOC: EDBD 20:32 → ER 20:32 → TELE 20:33 → TELE-WESTW 01-18 03:58
PROVIDERS: ADMIT Hospitalist; ATTEND Internal Medicine
PROC: 5A09357 Assistance with Respiratory Ventilation, Less than 24 Consecutive Hours, Continuous Positive Airway Pressure (ICD-10-PCS; principal; 2020-01-18)
PROC: 5A09357 Assistance with Respiratory Ventilation, Less than 24 Consecutive Hours, Continuous Positive Airway Pressure (ICD-10-PCS; 2020-01-19)
PROC: 5A09357 Assistance with Respiratory Ventilation, Less than 24 Consecutive Hours, Continuous Positive Airway Pressure (ICD-10-PCS; 2020-01-20)
PROC: 5A09357 Assistance with Respiratory Ventilation, Less than 24 Consecutive Hours, Continuous Positive Airway Pressure (ICD-10-PCS; 2020-01-21)
DX: J44.1 Chronic obstructive pulmonary disease with (acute) exacerbation (principal); J96.21 Acute and chronic respiratory failure with hypoxia; I50.33 Acute on chronic diastolic (congestive) heart failure; E44.0 Moderate protein-calorie malnutrition; E11.22 Type 2 diabetes mellitus with diabetic chronic kidney disease; L03.115 Cellulitis of right lower limb; E66.01 Morbid (severe) obesity due to excess calories; E11.65 Type 2 diabetes mellitus with hyperglycemia; G30.9 Alzheimer's disease, unspecified; F02.80 Dementia in other diseases classified elsewhere, unspecified severity, without behavioral disturbance, psychotic disturbance, mood disturbance, and anxiety; J96.22 Acute and chronic respiratory failure with hypercapnia; I13.0 Hypertensive heart and chronic kidney disease with heart failure and stage 1 through stage 4 chronic kidney disease, or unspecified chronic kidney disease; E87.1 Hypo-osmolality and hyponatremia; L03.116 Cellulitis of left lower limb; Z51.5 Encounter for palliative care; D63.8 Anemia in other chronic diseases classified elsewhere; N18.9 Chronic kidney disease, unspecified; G25.81 Restless legs syndrome; E78.5 Hyperlipidemia, unspecified; F32.9 Major depressive disorder, single episode, unspecified; I25.10 Atherosclerotic heart disease of native coronary artery without angina pectoris; Z68.43 Body mass index [BMI] 50.0-59.9, adult; Z88.2 Allergy status to sulfonamides; Z79.82 Long term (current) use of aspirin; Z79.4 Long term (current) use of insulin; Z79.899 Other long term (current) drug therapy; Z98.51 Tubal ligation status; Z90.49 Acquired absence of other specified parts of digestive tract; Z87.891 Personal history of nicotine dependence; Z80.0 Family history of malignant neoplasm of digestive organs; Z83.49 Family history of other endocrine, nutritional and metabolic diseases; Z81.8 Family history of other mental and behavioral disorders; Z82.0 Family history of epilepsy and other diseases of the nervous system; Z83.3 Family history of diabetes mellitus; Z82.49 Family history of ischemic heart disease and other diseases of the circulatory system
CPT/HCPCS: 36415; 36600; 71045; 80048; 80053; 80061; 81001; 82805; 82962; 83036; 83605; 83735; 83880; 84443; 84484; 85025; 87040; 87081; 87086; 93005; 94640; 94660; 99291; G0378; J0690; J0696; J1815